=== PATIENT | female | born 1945 | race Caucasian/White ===

== ENCOUNTER → 2018-04-05 10:36 | Outpatient (CLI) | payer OTHER, SELFPAY ==
--- NOTE | 2018-04-05 10:38 | DI.RAD.S_ITS ---
PROCEDURE: XR CHEST 2V INDICATIONS: cough TECHNIQUE: 2 views of the chest were acquired. COMPARISON: [facility], , CHEST 2 VIEW, 11/23/2017, 10:29. FINDINGS: Surgical changes and devices: None. Lungs and pleura: There is a questionable circumscribed nodule posterior to the right cardiac shadow versus overlapping soft tissue artifact. The lungs are otherwise clear. No pleural effusion or pneumothorax. Mediastinum: Mediastinal contours are normal. Heart size is normal. Bones and chest wall: No suspicious bony abnormalities. Soft tissues appear unremarkable. IMPRESSION: Questionable pulmonary nodule versus artifact as described above. Short interval followup recommended to ensure resolution of this finding. Dictated by: Nedra Laurent M.D. on 04/05/2018 at 10:48 Approved by: Nedra Laurent M.D. on 04/05/2018 at 10:49
== END ==
PROVIDERS: Family Provider Physician Assistant; PCP Physician Assistant; Visit Provider Physician Assistant
DX: R05 Cough (principal); J44.9 Chronic obstructive pulmonary disease, unspecified
CPT/HCPCS: 71046

== ENCOUNTER → 2018-04-14 15:56 | Outpatient (CLI) | payer OTHER, SELFPAY ==
--- NOTE | 2018-04-14 16:00 | DI.RAD.S_ITS ---
PROCEDURE: XR CHEST 2V INDICATIONS: follow up Xray TECHNIQUE: 2 views of the chest were acquired. COMPARISON: [facility], , XR CHEST 2V, 04/05/2018, 10:37. FINDINGS: Surgical changes and devices: None. Lungs and pleura: No pleural effusions or pneumothorax. Lungs are clear. With attention to the right costovertebral angle, the nodular density on last exam is not visualized. Mediastinum: Mediastinal contours are normal. Heart size is normal. Bones and chest wall: No suspicious bony abnormalities. Thoracic spondylosis. Anterior wedging midthoracic spine with kyphosis. There are calcifications overlying the right humeral head. IMPRESSION: 1. No acute cardiopulmonary abnormality. No pulmonary nodules seen. 2. Degenerative thoracic spine disease with kyphosis. 3. Calcific tendinopathy right shoulder. Dictated by: Jc Barton M.D. on 04/14/2018 at 16:19 Approved by: Jc Barton M.D. on 04/14/2018 at 16:23
== END ==
PROVIDERS: Family Provider Physician Assistant; PCP Physician Assistant; Visit Provider Physician Assistant
DX: M47.814 Spondylosis without myelopathy or radiculopathy, thoracic region (principal); M40.204 Unspecified kyphosis, thoracic region; R93.8 Abnormal findings on diagnostic imaging of other specified body structures; M75.31 Calcific tendinitis of right shoulder
CPT/HCPCS: 71046

== ENCOUNTER → 2018-06-30 17:07 | Outpatient (CLI) | payer OTHER, SELFPAY ==
--- NOTE | 2018-06-30 | DI.RAD.S_ITS ---
PROCEDURE: XR CHEST 2V INDICATIONS: ACUTE BRONCHITIS WITH ASTHMA TECHNIQUE: 2 views of the chest were acquired. COMPARISON: [facility], CR, XR CHEST 2V, 04/05/2018, 10:37. [facility], CR, CHEST 2 VIEW, 11/23/2017, 10:29. [facility], CR, XR CHEST 2V, 04/14/2018, 15:41. FINDINGS: Surgical changes and devices: None. Lungs and pleura: Chronic interstitial prominence. No pleural effusions or pneumothorax. Lungs are clear. Mediastinum: Mediastinal contours are normal. Heart size is normal. Bones and chest wall: No suspicious bony abnormalities. Soft tissues appear unremarkable. Degenerative changes noted in thoracic lumbar spine. IMPRESSION: No acute cardiopulmonary disease. Dictated by: Beata Zapien M.D. on 07/01/2018 at 11:27 Approved by: Beata Zapien M.D. on 07/01/2018 at 11:28
== END ==
PROVIDERS: Family Provider Physician Assistant; PCP Physician Assistant; Visit Provider Physician Assistant
DX: J20.9 Acute bronchitis, unspecified (principal); J45.909 Unspecified asthma, uncomplicated
CPT/HCPCS: 71046

== ENCOUNTER → 2018-08-06 08:02 | Outpatient (CLI) | payer OTHER, SELFPAY ==
[2018-08-06 08:34] LABS: Alanine Aminotransferase 31 IU/L (9-52); Albumin 4.3 g/dL (3.5-5.0); Albumin Globulin Ratio 1.5 (1.0-2.8); Alkaline Phosphatase 72 U/L (38-126); Aspartate Aminotransferase 26 IU/L (14-36); BUN Creatinine Ratio 34.3 (6-22); Blood Urea Nitrogen 24 mg/dL (7-17); Calcium 9.3 mg/dL (8.4-10.2); Carbon Dioxide 35 mmol/L (22-32); Chloride 103 mmol/L (98-107); Cholesterol 183 mg/dL (140-199); Estimated Glomerular Filt Rate > 60.0 mL/min (>60); Globulin 2.9 g/dL (1.7-4.1); Glucose 95 mg/dL (80-110); HDL Cholesterol 55 mg/dL (40-60); HEMOLYSIS < 15 (0-50); LDL Cholesterol Calculated 114 mg/dL (<100); Potassium 4.1 mmol/L (3.4-5.1); Sodium 144 mmol/L (137-145); Total Protein 7.2 g/dL (6.3-8.2); Triglycerides 71 mg/dL (35-150)
== END ==
PROVIDERS: PCP Physician Assistant; Visit Provider Physician Assistant
DX: E78.5 Hyperlipidemia, unspecified (principal); J44.9 Chronic obstructive pulmonary disease, unspecified
CPT/HCPCS: 36415; 80053; 80061

== ENCOUNTER → 2018-10-04 10:33 | Outpatient (CLI) | payer OTHER, SELFPAY ==
[2018-10-04 11:03] LABS: Influenza A and B by PCR Rapid Negative (Negative)
== END ==
PROVIDERS: Family Provider Physician Assistant; PCP Physician Assistant; Visit Provider Physician Assistant
DX: R68.89 Other general symptoms and signs (principal)
CPT/HCPCS: 87400

== ENCOUNTER → 2018-10-04 11:21 | Outpatient (CLI) | payer OTHER, SELFPAY ==
--- NOTE | 2018-10-04 11:22 | DI.RAD.S_ITS ---
PROCEDURE: XR CHEST 2V INDICATIONS: bilateral crackles/wheeze TECHNIQUE: 2 views of the chest were acquired. COMPARISON: [facility], CR, XR CHEST 2V, 06/30/2018, 18:02. FINDINGS: Surgical changes and devices: None. Lungs and pleura: Slight appearance of streaky retrocardiac/by basilar opacities. There is overall. Other increased pulmonary vascularity. Mediastinum: Mediastinal contours are normal. Heart size is normal. Bones and chest wall: No suspicious bony abnormalities. Soft tissues appear unremarkable. IMPRESSION: Increased vascular sutures with edema. Streaky opacities are present within the bases as well as retrocardiac region. Findings are suggestive of edema. However, developing areas of airspace disease such as atelectasis and/or pneumonia cannot be excluded. This could represent developing airspace disease such as pneumonia and/or atelectasis. Dictated by: Hanh Prajapati M.D. on 10/04/2018 at 11:59 Approved by: Hanh Prajapati M.D. on 10/04/2018 at 12:00
== END ==
PROVIDERS: Family Provider Physician Assistant; PCP Physician Assistant; Visit Provider Physician Assistant
DX: R05 Cough (principal); R06.2 Wheezing
CPT/HCPCS: 71046; 87400

== ENCOUNTER → 2019-04-14 10:45 | Outpatient (CLI) | payer OTHER, SELFPAY | PROVIDERS: Family Provider Physician Assistant; PCP Physician Assistant; Visit Provider Physician Assistant | DX: R30.0 Dysuria (principal) | CPT/HCPCS: 87077; 87086; 87186 ==

== ENCOUNTER → 2019-05-21 07:50 | Outpatient (CLI) | payer OTHER, SELFPAY ==
[2019-05-21 09:33] LABS: Blood Urea Nitrogen 28 mg/dL (7-17); Calcium 9.5 mg/dL (8.4-10.2); Carbon Dioxide 30 mmol/L (22-32); Chloride 104 mmol/L (98-107); Estimated Glomerular Filt Rate > 60.0 mL/min (>60); Glucose 92 mg/dL (80-110); HEMOLYSIS 16 (0-50); Potassium 4.3 mmol/L (3.4-5.1); Sodium 141 mmol/L (137-145)
[2019-05-21 10:01] LABS: Creatinine Urine Random 101.9 mg/dL
[2019-05-21 10:05] LABS: Microalbumi Creatinin Ratio Ur 27.4 ug/mg CR (<30); Microalbumin Urine Random 2.8 mg/dL (0-1.6)
== END ==
PROVIDERS: PCP Physician Assistant; Visit Provider Physician Assistant
DX: E78.5 Hyperlipidemia, unspecified (principal); I10 Essential (primary) hypertension; J44.9 Chronic obstructive pulmonary disease, unspecified
CPT/HCPCS: 36415; 80048; 82043; 82570

== ENCOUNTER → 2020-05-21 15:32 | Outpatient (CLI) | payer OTHER, SELFPAY ==
[2020-05-23 04:12] LABS: COVID19 Sendout Not Detected (Not Detected)
== END ==
PROVIDERS: PCP Physician Assistant; Visit Provider Physician Assistant
DX: Z11.59 Encounter for screening for other viral diseases (principal); R06.02 Shortness of breath
CPT/HCPCS: 87635

== ENCOUNTER → 2020-09-25 07:34 | Outpatient (CLI) | payer OTHER, SELFPAY ==
[2020-09-25 08:20] LABS: Hematocrit 44.9 % (36-46); Hemoglobin 14.5 g/dL (12.0-16.0); Mean Corpuscular HGB Conc 32.4 % (30-36); Mean Corpuscular Hemoglobin 31.3 PG (26-34); Mean Corpuscular Volume 96.5 fL (80-100); Platelet Count 220 X10^3/uL (150-400); Red Blood Cell Count 4.65 X10^6/uL (4.0-5.2); Red Cell Distribution Width 14.5 % (11.6-14.8); White Blood Cell Count 5.4 X10^3/uL (4.5-11.0)
[2020-09-25 08:21] LABS: Alanine Aminotransferase 22 IU/L (<35); Albumin 3.9 g/dL (3.5-5.0); Albumin Globulin Ratio 1.3 (1.0-2.8); Alkaline Phosphatase 72 U/L (38-126); Aspartate Aminotransferase 29 IU/L (14-36); BUN Creatinine Ratio 38.8 (6-22); Bilirubin Total 0.9 mg/dL (0.2-1.3); Blood Urea Nitrogen 26 mg/dL (7-17); Calcium 9.2 mg/dL (8.4-10.2); Carbon Dioxide 35 mmol/L (22-32); Chloride 104 mmol/L (98-107); Cholesterol 180 mg/dL (140-199); Estimated Glomerular Filt Rate > 60.0 mL/min (>60); Glucose 107 mg/dL (80-110); HDL Cholesterol 53 mg/dL (40-60); HEMOLYSIS < 15 (0-50); LDL Cholesterol Calculated 113 mg/dL (<100); Potassium 4.4 mmol/L (3.4-5.1); Sodium 140 mmol/L (137-145); Total Protein 6.9 g/dL (6.3-8.2); Triglycerides 70 mg/dL (35-150)
== END ==
PROVIDERS: PCP Nurse Practitioner Family; Referring Provider Nurse Practitioner Family; Visit Provider Nurse Practitioner Family
DX: Z00.00 Encounter for general adult medical examination without abnormal findings (principal); J41.8 Mixed simple and mucopurulent chronic bronchitis; Z13.6 Encounter for screening for cardiovascular disorders
CPT/HCPCS: 36415; 80053; 80061; 85027

== ENCOUNTER 2020-10-16 10:25 | Emergency (ER) | payer OTHER, SELFPAY ==
[2020-10-16] VITALS (12 sets, daily range): BP systolic 143–172; BP diastolic 80–96; PULSE 60–84; RESP 15–35; TEMP 36.8; O2SAT 91–96; BMI 40.2
--- NOTE | 2020-10-16 10:42 | DI.RAD.S_ITS ---
PROCEDURE: XR CHEST 2V INDICATIONS: shortness of breath TECHNIQUE: 2 views of the chest were acquired. COMPARISON: [facility], CR, XR CHEST 2V, 10/04/2018, 11:27. [facility], CR, XR CHEST 2V, 06/30/2018, 18:02. FINDINGS: Surgical changes and devices: None. Lungs and pleura: Lungs are abnormal, with asymmetric right greater than left alveolar infiltration in the setting of reduced inspiratory volume and asymmetric mild elevation of the right hemidiaphragm. No pleural effusions or pneumothorax. Mediastinum: Mediastinal contours are normal. Heart size is normal. Bones and chest wall: No suspicious bony abnormalities. Soft tissues appear unremarkable. IMPRESSION: The inspiratory volume is significantly reduced, and the right hemidiaphragm is mildly elevated. There is a alveolar infiltration pattern that is greater on the right than the left but this may simply represent atelectasis in the setting of reduced inspiration. Follow-up PA and lateral chest plain films with deep inspiratory effort would be helpful in determining whether right-sided pneumonia is superimposed. Dictated by: Steven Edwards M.D. on 10/16/2020 at 11:21 Approved by: Steven Edwards M.D. on 10/16/2020 at 11:22
[2020-10-16 12:20] LABS: Add Manual Diff / Slide Review NO; Basophils Absolute Auto 100 /uL (0-100); Basophils Percent Auto 0.9 % (0-2); Eosinophils Absolute Auto 300 /uL (0-450); Eosinophils Percent Auto 4.4 % (2-4); Hematocrit 46.4 % (36-46); Hemoglobin 15.3 g/dL (12.0-16.0); Lymphocytes Absolute Auto 1200 /uL (1100-4500); Lymphocytes Percent Auto 20.2 % (25-40); Mean Corpuscular HGB Conc 32.9 % (30-36); Mean Corpuscular Hemoglobin 31.6 PG (26-34); Mean Corpuscular Volume 95.9 fL (80-100); Monocytes Absolute Auto 600 /uL (0-900); Monocytes Percent Auto 9.4 % (3-14); Neutrophils Absolute Auto 3900 /uL (1500-7000); Neutrophils Percent Auto 65.1 % (50-75); Platelet Count 235 X10^3/uL (150-400); Red Blood Cell Count 4.84 X10^6/uL (4.0-5.2); Red Cell Distribution Width 14.8 % (11.6-14.8)
[2020-10-16 12:21] LABS: COVID19 -Nasal RAPID Negative (Negative)
[2020-10-16 12:25] LABS: Lactate (Lactic Acid) 0.8 mmol/L (0.7-2.1)
[2020-10-16 12:26] LABS: Alanine Aminotransferase 24 IU/L (<35); Albumin 4.2 g/dL (3.5-5.0); Albumin Globulin Ratio 1.2 (1.0-2.8); Alkaline Phosphatase 83 U/L (38-126); Aspartate Aminotransferase 29 IU/L (14-36); BUN Creatinine Ratio 36.9 (6-22); Bilirubin Total 0.7 mg/dL (0.2-1.3); Blood Urea Nitrogen 24 mg/dL (7-17); Calcium 9.8 mg/dL (8.4-10.2); Carbon Dioxide 37 mmol/L (22-32); Chloride 103 mmol/L (98-107); Estimated Glomerular Filt Rate > 60.0 mL/min (>60); Globulin 3.5 g/dL (1.7-4.1); Glucose 96 mg/dL (80-110); HEMOLYSIS < 15 (0-50); Potassium 3.8 mmol/L (3.4-5.1); Sodium 138 mmol/L (137-145); Total Protein 7.7 g/dL (6.3-8.2)
--- NOTE | 2020-10-16 12:30 | ED.SOB ---
HPI - SOB/Dyspnea <BLAKE Obrien - Last Filed: 10/16/20 14:00> General Chief Complaint: Shortness of Breath/Dyspnea Stated Complaint: DRY COUGH, WHEEZING Time Seen by Provider: 10/16/20 11:09 Source: patient Mode of arrival: Ambulatory Limitations: no limitations History of Present Illness HPI Narrative: This is a 75-year-old female, smoker, who has past medical history significant for COPD, asthma, allergies presents to ED with chief complain of trouble breathing. Patient reports 3 day duration of nonproductive dry cough and wheezing worsened with activities. Patient denies fever, chills, nausea or vomiting. Patient reports she had star using nebulizer treatment 2 days ago for her symptoms and had cough spells. Reports pleuritic chest discomfort only with cough. Patient denies recent weight gain or swellings to lower extremities. Patient denies history of hospitalization or intubation with COPD or asthma. Patient reports steroid use not frequently for her symptoms. Patient contacted KAILEE Acosta's office and was instructed to go into ED for an evaluation. Patient denies recent known COVID exposure and denies headache, sore throat, body aches, loss of taste or smells. Related Data Home Medications Medication Instructions Recorded Confirmed CA PANTOTHENATE/FOLIC ACID/VIT 1 tab PO QDAY #0 09/10/12 09/19/20 (MULTIVITAMIN) fexofenadine 180 mg PO QDAY #0 11/26/17 09/19/20 Calcium/Vitamin D3 See Rx Instructions .ROUTE .COMPLEX 08/09/18 09/19/20 acetaminophen 650 mg 1,300 mg PO DAILY tab 09/19/20 09/19/20 tablet,extended release Previous Rx's Medication Instructions Recorded ipratropium 0.5 mg-albuterol 3 mg 3 ml INHALATION Q6HP PRN #90 ea 02/25/18 (2.5 mg base)/3 mL nebulization soln albuterol sulfate 90 mcg/actuation 2 puff INHALATION Q4HP PRN #1 inh 07/19/20 aerosol inhaler fluticasone 55 mcg-salmeterol 14 1 inhalation INHALATION BID #1 each 07/19/20 mcg/actuation breath activated powder montelukast 10 mg tablet 10 mg PO QPM #90 tab 07/19/20 meclizine 12.5 mg tablet 12.5 mg PO TID PRN #14 tab 08/01/20 alendronate 70 mg tablet 70 mg PO QWEEK #12 tab 09/19/20 hydrochlorothiazide 25 mg tablet 25 mg PO QDAY #90 tab 09/19/20 ofloxacin 0.3 % eye drops 2 drp EYE-BOTH QID 5 Days #10 ml 09/19/20 doxycycline hyclate 100 mg PO BID 7 Days #14 cap 10/16/20 prednisone 50 mg PO DAILY 5 Days #5 tab 10/16/20 Allergies Allergy/AdvReac Type Severity Reaction Status Date / Time No Known Drug Allergies Allergy Verified 10/16/20 10:37 Review of Systems <BLAKE Obrien - Last Filed: 10/16/20 14:00> Review of Systems Narrative: General: Denies fever, chills, fatigue, malaise, sweats. HEENT: Denies sinus pain, ear pain, sore throat, difficulty swallowing, dizziness. Respiratory: See HPI Cardiovascular: Denies (+) pleuric chest pain with cough, palpitations, orthopnea, edema. Gastrointestinal: Denies nausea, vomiting, abdominal pain, diarrhea, constipation, melena. : Denies dysuria, frequency, incontinence, hematuria, urinary retention. Musculoskeletal: Denies weakness, joint pain or bony pain. Skin: Denies rash, skin lesions, or other. Neurologic: Denies weakness, headache, numbness, change in speech, confusion, seizures, incoordination. Psychiatric: No concerning psychosocial issues. 12-point review of systems is negative except for those stated above. Patient History <BLAKE Obrien - Last Filed: 10/16/20 14:00> Medical History Asthma Chronic obstructive pulmonary disease (12/23/12) Hyperlipidemia Osteoarthritis Osteopenia after menopause Polyp of colon (04/02/11) Psoriasis Smoker unmotivated to quit Surgical History History of colonoscopy with polypectomy (05/04/09) History of ventral hernia repair (08/10/07) Social History Smoking Status: Current every day smoker Tobacco: How many years used: 58 quit status: considering quitting second hand exposure: No alcohol intake: never substance use type: does not use Smoking Status: Current every day smoker Exam <Venkata BLAKE Monique - Last Filed: 10/16/20 14:00> Narrative Exam Narrative: GEN: Alert, oriented x 3, well appearing and nourished, and in no acute distress. Head: Normal cephalic, atraumatic. No scalp or temporal tenderness, palpable mass or rash. EYES: Pupils are equal, round, and reactive to light and accommodation. Extraocular muscles are intact bilaterally. There is no subconjunctival hemorrhage, exudate and sclera non-icteric. ENT: Hearing grossly intact. Nose without bleeding, purulent discharge or deviation. Facial sinuses nontender to palpate. Mucous membrane moist, no mucosal lesion. Throat without erythema, tonsillar hypertrophy or exudate. Uvula in midline, airway patent. Neck: Trachea in midline. No JVD, non-tender without lymphadenopathy. No masses or thyroid megaly. Supple, non-tender and no meningeal signs. CARDIAC: Normal regular rate and rhythm without murmurs, gallops, or rubs. No chest wall tenderness. No peripheral edema, cyanosis or pallor. Capillary refill is less than 2 seconds. RESPIRATORY: Lungs are clear to auscultate bilaterally. No cough, wheezes, rales, or rhonchi. No stridor, respiratory distress, increase work of breathing, or accessary muscle used. O2 sat 92-94% in RA. ABD: Abdomen soft, nontender and non-distended. No guarding or rebound tenderness to palpate. Bowel sounds are normal in all 4 quadrants. There is no palpable masses or organomegaly. EXT: Full painless ROM of all extremities with no loss of sensation, strength, effusion or edema. SKIN: Warm, dry, normal color for patient. No erythema, lesions or rash over visible areas. BACK: Nontender without deformity or crepitance. No flank tenderness. NEUROLOGICAL: Alert and oriented to place, time and person. Sensation and motor function intact bilaterally. No facial droops, dysphasia. PSYCHIATRIC: Good judgement and reason, without hallucinations, abnormal affect or abnormal behaviors during the examination. Patient is not suicidal. Initial Vital Signs Initial Vital Signs: Vital Signs Temperature 98.3 F 12/29/20 10:37 Pulse Rate 60 10/16/20 10:37 Respiratory Rate 24 10/16/20 10:37 Blood Pressure 161/80 H 10/16/20 10:37 Pulse Oximetry 95 10/16/20 10:37 <Desiree Angulo DO - Last Filed: 10/16/20 18:52> Initial Vital Signs Initial Vital Signs: Vital Signs Temperature 98.3 F 10/16/20 10:37 Pulse Rate 60 10/16/20 10:37 Respiratory Rate 24 10/16/20 10:37 Blood Pressure 161/80 H 10/16/20 10:37 Pulse Oximetry 95 10/16/20 10:37 Scores <BLAKE Obrien - Last Filed: 10/16/20 14:00> GCS Kari coma scale eye opening: Spontaneous Kari coma scale verbal response: Orientated [place] coma scale motor response: Obey commands Kari coma scale total score: 15 qSOFA Altered Mental Status (GCS <15): No Respiratory rate greater than/equal to 22: Yes Systolic blood pressure less than or equal to 100: No qSOFA Total: 1 0-1 Not High Risk 1-3 High risk Course <BLAKE Obrien - Last Filed: 10/16/20 14:00> Orders Ordered: ED Orders 10/16/20 10:42 XR chest 2V Stat RT Consult Eval and Treat Now 10/16/20 11:19 EKG-12 Lead Stat 10/16/20 11:53 COVID19 Stat 10/16/20 12:00 Complete Blood Count AUTO DIFF Stat Comprehensive Metabolic Panel Stat Lactate (Lactic Acid) Stat Procalcitonin Stat Discontinued Medications Albuterol (Albuterol 2.5 Mg/3 Ml Neb (Adult)) 2.5 mg INH NOW ONE Stop: 10/16/20 12:29 Last Admin: 10/16/20 12:47 Dose: 2.5 mg Documented by: TITO Methylprednisolone (Methylprednisolone 125 Mg/2 Ml Vial) 125 mg IV NOW ONE Stop: 10/16/20 12:25 Last Admin: 10/16/20 12:58 Dose: 125 mg Documented by: BENIGNO Reevaluation(s) Reevaluation #1: Patient reports dyspnea improved after nebulizer treatment and Solu-Medrol. O2 sat improved to 95% in room air at rest. No increased respiratory efforts without tachypnea. Assuring lab test findings and physical exam with improved O2 saturation shared with the patient. Patient is afebrile and nontoxic appearing. Time: 13:22 Vital Signs Vital signs: Vital Signs - 8 hr 10/16/20 11:00 10/16/20 11:30 10/16/20 11:31 Pulse Rate 76 75 77 Respiratory Rate 27 H 32 H Blood Pressure 172/96 H 146/95 H Pulse Oximetry 93 93 93 10/16/20 11:39 10/16/20 12:00 10/16/20 12:31 Pulse Rate 71 66 67 Respiratory Rate 35 H 15 Blood Pressure 143/92 H Pulse Oximetry 94 94 91 10/16/20 12:52 10/16/20 13:00 10/16/20 13:01 Pulse Rate 84 75 66 Respiratory Rate 16 28 H 28 H Blood Pressure 150/81 H Pulse Oximetry 96 93 94 10/16/20 13:26 10/16/20 13:30 Pulse Rate 83 77 Respiratory Rate 24 Blood Pressure Pulse Oximetry 95 94 <Desiree Angulo, DO - Last Filed: 10/16/20 18:52> Orders Ordered: ED Orders 10/16/20 10:42 XR chest 2V Stat RT Consult Eval and Treat Now 10/16/20 11:19 EKG-12 Lead Stat 10/16/20 11:53 COVID19 Stat 10/16/20 12:00 Complete Blood Count AUTO DIFF Stat Comprehensive Metabolic Panel Stat Lactate (Lactic Acid) Stat Procalcitonin Stat Discontinued Medications Albuterol (Albuterol 2.5 Mg/3 Ml Neb (Adult)) 2.5 mg INH NOW ONE Stop: 10/16/20 12:29 Last Admin: 10/16/20 12:47 Dose: 2.5 mg Documented by: TITO Methylprednisolone (Methylprednisolone 125 Mg/2 Ml Vial) 125 mg IV NOW ONE Stop: 10/16/20 12:25 Last Admin: 10/16/20 12:58 Dose: 125 mg Documented by: BENIGNO Vital Signs Vital signs: Vital Signs - 8 hr 10/16/20 11:00 10/16/20 11:30 10/16/20 11:31 Pulse Rate 76 75 77 Respiratory Rate 27 H 32 H Blood Pressure 172/96 H 146/95 H Pulse Oximetry 93 93 93 10/16/20 11:39 10/16/20 12:00 10/16/20 12:31 Pulse Rate 71 66 67 Respiratory Rate 35 H 15 Blood Pressure 143/92 H Pulse Oximetry 94 94 91 10/16/20 12:52 10/16/20 13:00 10/16/20 13:01 Pulse Rate 84 75 66 Respiratory Rate 16 28 H 28 H Blood Pressure 150/81 H Pulse Oximetry 96 93 94 10/16/20 13:26 10/16/20 13:30 Pulse Rate 83 77 Respiratory Rate 24 Blood Pressure Pulse Oximetry 95 94 MDM - SOB/Dyspnea <Venkata Minda-RiaBLAKE - Last Filed: 10/16/20 14:00> Differential Diagnosis Differential diagnosis: Likely acute exacerbation of chronic obstructive airways disease, community acquired pneumonia and asthma with exacerbation Medical Records Attestation: I reviewed the patient's medical records. Lab Data Attestation: I reviewed the patient's lab results. Result diagrams: 10/16/20 12:00 10/16/20 12:00 Labs: Lab Results 10/16/20 10/16/20 10/16/20 Range/Units 11:53 12:00 12:00 WBC 6.0 (4.5-11.0) X10^3/uL RBC 4.84 (4.0-5.2) X10^6/uL Hgb 15.3 (12.0-16.0) g/dL Hct 46.4 H (36-46) % MCV 95.9 (80-100) fL MCH 31.6 (26-34) PG MCHC 32.9 (30-36) % RDW 14.8 (11.6-14.8) % Plt Count 235 (150-400) X10^3/uL Neut % (Auto) 65.1 (50-75) % Lymph % (Auto) 20.2 L (25-40) % Coffee % (Auto) 9.4 (3-14) % Eos % (Auto) 4.4 H (2-4) % Baso % (Auto) 0.9 (0-2) % Neut # (Auto) 3900 (8062-0537) /uL Lymph # (Auto) 1200 (8662-0528) /uL Coffee # (Auto) 600 (0-900) /uL Eos # (Auto) 300 (0-450) /uL Baso # (Auto) 100 (0-100) /uL Sodium 138 (137-145) mmol/L Potassium 3.8 (3.4-5.1) mmol/L Chloride 103 (98-107) mmol/L Carbon Dioxide 37 H (22-32) mmol/L BUN 24 H (7-17) mg/dL Creatinine 0.65 (0.52-1.04) mg/dL Estimated GFR > 60.0 (>60) mL/min BUN/Creatinine Ratio 36.9 H (6-22) Glucose 96 (80-110) mg/dL Lactate (0.7-2.1) mmol/L Calcium 9.8 (8.4-10.2) mg/dL Total Bilirubin 0.7 (0.2-1.3) mg/dL AST 29 (14-36) IU/L ALT 24 (<35) IU/L Alkaline Phosphatase 83 (38-126) U/L Total Protein 7.7 (6.3-8.2) g/dL Albumin 4.2 (3.5-5.0) g/dL Globulin 3.5 (1.7-4.1) g/dL Albumin/Globulin Ratio 1.2 (1.0-2.8) Procalcitonin (<0.5) ng/mL COVID-19 PCR Negative (Negative) 10/16/20 10/16/20 Range/Units 12:00 12:00 WBC (4.5-11.0) X10^3/uL RBC (4.0-5.2) X10^6/uL Hgb (12.0-16.0) g/dL Hct (36-46) % MCV (80-100) fL MCH (26-34) PG MCHC (30-36) % RDW (11.6-14.8) % Plt Count (150-400) X10^3/uL Neut % (Auto) (50-75) % Lymph % (Auto) (25-40) % Coffee % (Auto) (3-14) % Eos % (Auto) (2-4) % Baso % (Auto) (0-2) % Neut # (Auto) (0588-5915) /uL Lymph # (Auto) (0998-3262) /uL Coffee # (Auto) (0-900) /uL Eos # (Auto) (0-450) /uL Baso # (Auto) (0-100) /uL Sodium (137-145) mmol/L Potassium (3.4-5.1) mmol/L Chloride (98-107) mmol/L Carbon Dioxide (22-32) mmol/L BUN (7-17) mg/dL Creatinine (0.52-1.04) mg/dL Estimated GFR (>60) mL/min BUN/Creatinine Ratio (6-22) Glucose (80-110) mg/dL Lactate 0.8 (0.7-2.1) mmol/L Calcium (8.4-10.2) mg/dL Total Bilirubin (0.2-1.3) mg/dL AST (14-36) IU/L ALT (<35) IU/L Alkaline Phosphatase (38-126) U/L Total Protein (6.3-8.2) g/dL Albumin (3.5-5.0) g/dL Globulin (1.7-4.1) g/dL Albumin/Globulin Ratio (1.0-2.8) Procalcitonin < 0.05 (<0.5) ng/mL COVID-19 PCR (Negative) Urine Dip Bedside Urine Glucose Negative Bedside Urine Bilirubin - Negative Bedside Urine Ketone - Negative Urine Specific [place] 1.015 Bedside Urine Occult Blood +/- Bedside Urine pH 6.5 Bedside Urine Protein - Negative Bedside Urine Urobilinogen - Negative Bedside Urine Nitrite - Negative Bedside Urine Leukocytes - Negative Esterase Imaging Data Chest x-ray: Radiologist's Impression: [address] [id number] ReportSigned Patient: Mei Singh [facility]#: [id number]: 1945cct:[id number]/Sex: 75 / FDate of Service: 10/16/20Loc: EDAccession Number: [id number] Procedure: XR chest 2V Ordering Provider: Desiree Angulo D.O. PROCEDURE: XR CHEST 2V INDICATIONS: shortness of breath TECHNIQUE: 2 views of the chest were acquired. COMPARISON: [facility], CR, XR CHEST 2V, 10/04/2018, 11:27. [facility], CR, XR CHEST 2V, 06/30/2018, 18:02. FINDINGS: Surgical changes and devices: None. Lungs and pleura: Lungs are abnormal, with asymmetric right greater than left alveolar infiltration in the setting of reduced inspiratory volume and asymmetric mild elevation of the right hemidiaphragm. No pleural effusions or pneumothorax. Mediastinum: Mediastinal contours are normal. Heart size is normal. Bones and chest wall: No suspicious bony abnormalities. Soft tissues appear unremarkable. IMPRESSION: The inspiratory volume is significantly reduced, and the right hemidiaphragm is mildly elevated. There is a alveolar infiltration pattern that is greater on the right than the left but this may simply represent atelectasis in the setting of reduced inspiration. Follow-up PA and lateral chest plain films with deep inspiratory effort would be helpful in determining whether right-sided pneumonia is superimposed. Dictated by: Steven Edwards M.D. on 10/16/2020 at 11:21 Approved by: Steven Edwards M.D. on 10/16/2020 at 11:22 ECG Data Attestation: I personally reviewed and interpreted this ECG as follows: Prior ECG tracings: not available for review Interpretation: Sinus rhythm with first-degree AV block rate at 62 and incomplete right bundle branch block MO interval to 15, QRS duration 118, QT/QTC 397/403 Left dominant axis. No acute ST changes MDM Narrative Medical decision making narrative: This is a 75 year female who presents to ED with dyspnea and nonproductive cough who has history of COPD, asthma, and allergies. Patient started using nebulizer 1st time 2 days ago and uses inhaler routinely. Patient reports some chest correct discomfort only with cough and denies other cardiac related symptoms. Lung sounds are clear to auscultate. O2 said range from 92-94% in room air at rest. COVID test was negative. Chest x-ray shows questionable alveolar infiltration pattern on the right-side verses atelectasis. Labs are assuring. No leukocytosis with normal lactate and procalcitonin. Elevated CO2 of 37 and possibly patient is slightly dehydrated with BUN of 24 and increased BUN/creatinine ratio. Given patient's history of COPD and asthma, will treat patient for pneumonia with doxycycline b.i.d. course for 7 days. In addition, patient will be on 5 day course of steroids. Patient was treated with Solu-Medrol 1st dose in ED and nebulizer treatment with albuterol which improved symptoms. Patient was able to ambulate without short of breath and keeping O2 said at 95% in room air. Strict return precautions were discussed with patient and she verbalized understanding and in agreement with the treatment plan. Advised to hydrate. <Desiree Angulo, - Last Filed: 10/16/20 18:52> Lab Data Labs: Lab Results 10/16/20 10/16/20 10/16/20 Range/Units 11:53 12:00 12:00 WBC 6.0 (4.5-11.0) X10^3/uL RBC 4.84 (4.0-5.2) X10^6/uL Hgb 15.3 (12.0-16.0) g/dL Hct 46.4 H (36-46) % MCV 95.9 (80-100) fL MCH 31.6 (26-34) PG MCHC 32.9 (30-36) % RDW 14.8 (11.6-14.8) % Plt Count 235 (150-400) X10^3/uL Neut % (Auto) 65.1 (50-75) % Lymph % (Auto) 20.2 L (25-40) % Coffee % (Auto) 9.4 (3-14) % Eos % (Auto) 4.4 H (2-4) % Baso % (Auto) 0.9 (0-2) % Neut # (Auto) 3900 (8220-6885) /uL Lymph # (Auto) 1200 (9961-6977) /uL Coffee # (Auto) 600 (0-900) /uL Eos # (Auto) 300 (0-450) /uL Baso # (Auto) 100 (0-100) /uL Sodium 138 (137-145) mmol/L Potassium 3.8 (3.4-5.1) mmol/L Chloride 103 (98-107) mmol/L Carbon Dioxide 37 H (22-32) mmol/L BUN 24 H (7-17) mg/dL Creatinine 0.65 (0.52-1.04) mg/dL Estimated GFR > 60.0 (>60) mL/min BUN/Creatinine Ratio 36.9 H (6-22) Glucose 96 (80-110) mg/dL Lactate (0.7-2.1) mmol/L Calcium 9.8 (8.4-10.2) mg/dL Total Bilirubin 0.7 (0.2-1.3) mg/dL AST 29 (14-36) IU/L ALT 24 (<35) IU/L Alkaline Phosphatase 83 (38-126) U/L Total Protein 7.7 (6.3-8.2) g/dL Albumin 4.2 (3.5-5.0) g/dL Globulin 3.5 (1.7-4.1) g/dL Albumin/Globulin Ratio 1.2 (1.0-2.8) Procalcitonin (<0.5) ng/mL COVID-19 PCR Negative (Negative) 10/16/20 10/16/20 Range/Units 12:00 12:00 WBC (4.5-11.0) X10^3/uL RBC (4.0-5.2) X10^6/uL Hgb (12.0-16.0) g/dL Hct (36-46) % MCV (80-100) fL MCH (26-34) PG MCHC (30-36) % RDW (11.6-14.8) % Plt Count (150-400) X10^3/uL Neut % (Auto) (50-75) % Lymph % (Auto) (25-40) % Coffee % (Auto) (3-14) % Eos % (Auto) (2-4) % Baso % (Auto) (0-2) % Neut # (Auto) (2633-6252) /uL Lymph # (Auto) (4382-3766) /uL Coffee # (Auto) (0-900) /uL Eos # (Auto) (0-450) /uL Baso # (Auto) (0-100) /uL Sodium (137-145) mmol/L Potassium (3.4-5.1) mmol/L Chloride (98-107) mmol/L Carbon Dioxide (22-32) mmol/L BUN (7-17) mg/dL Creatinine (0.52-1.04) mg/dL Estimated GFR (>60) mL/min BUN/Creatinine Ratio (6-22) Glucose (80-110) mg/dL Lactate 0.8 (0.7-2.1) mmol/L Calcium (8.4-10.2) mg/dL Total Bilirubin (0.2-1.3) mg/dL AST (14-36) IU/L ALT (<35) IU/L Alkaline Phosphatase (38-126) U/L Total Protein (6.3-8.2) g/dL Albumin (3.5-5.0) g/dL Globulin (1.7-4.1) g/dL Albumin/Globulin Ratio (1.0-2.8) Procalcitonin < 0.05 (<0.5) ng/mL COVID-19 PCR (Negative) Urine Dip Bedside Urine Glucose Negative Bedside Urine Bilirubin - Negative Bedside Urine Ketone - Negative Urine Specific [place] 1.015 Bedside Urine Occult Blood +/- Bedside Urine pH 6.5 Bedside Urine Protein - Negative Bedside Urine Urobilinogen - Negative Bedside Urine Nitrite - Negative Bedside Urine Leukocytes - Negative Esterase Discharge Plan Departure Patient Disposition: Home Clinical Impression: Breath, shortness Pneumonia Qualifiers: Pneumonia type: due to unspecified organism Laterality: right Lung location: unspecified part of lung Qualified Code(s): J18.9 - Pneumonia, unspecified organism Instructions: DI for Chronic Obstructive Pulmonary Disease, DI for Pneumonia -- Adult Activity Restrictions/Additional Instructions: You have been diagnosed with [possible pneumonia and has a history of COPD. X-ray test indicates possible pneumonia. You were treated with nebulizer treatment and Solu-Medrol IV in ED. Covid test was negative]. What to do: *Take your medications as directed. Please take doxycycline starting tonight. Take twice a day for next 7 days. Start prednisone tomorrow for next 5 days. [facility] *Follow up with your primary care provider in 2-3 days, call for an appointment. Let them know you were seen in the ED and that we asked you to be seen in follow up. *Return to ED if you have any new, worsening, or concerning symptoms, such as chest pain, difficulty breathing, fever, unable to tolerate fluids, near syncope or any acute concerns]. Prescriptions: New prednisone 50 mg tablet 50 mg PO DAILY 5 Days Qty: 5 RF: 0 doxycycline hyclate 100 mg capsule 100 mg PO BID 7 Days Qty: 14 RF: 0 No Action ipratropium-albuterol 0.5 mg-3 mg(2.5 mg base)/3 mL solution for nebulization 3 ml INHALATION Q6HP PRN (Reason: shortness of breath) Qty: 90 RF: 3 Calcium/Vitamin D3 See Rx Instructions .ROUTE .COMPLEX RF: 0 meclizine 12.5 mg tablet 12.5 mg PO TID PRN (Reason: vertigo) Qty: 14 RF: 0 CA PANTOTHENATE/FOLIC ACID/VIT (MULTIVITAMIN) 1 tab PO QDAY Qty: 0 RF: 0 fexofenadine 180 MG tablet 180 mg PO QDAY Qty: 0 RF: 0 acetaminophen [Tylenol Arthritis Pain] 650 mg tablet extended release 1,300 mg PO DAILY RF: 0 hydrochlorothiazide 25 mg tablet 25 mg PO QDAY Qty: 90 RF: 2 ofloxacin 0.3 % drops 2 drp EYE-BOTH QID 5 Days Qty: 10 RF: 1 alendronate 70 mg tablet 70 mg PO QWEEK Qty: 12 RF: 3 fluticasone propion-salmeterol 55-14 mcg/actuation aerosol powdr breath activated 1 inhalation INHALATION BID Qty: 1 RF: 2 montelukast 10 mg tablet 10 mg PO QPM Qty: 90 RF: 1 albuterol sulfate [Ventolin HFA] 90 mcg/actuation HFA aerosol inhaler 2 puff inhalation Q4HP PRN (Reason: shortness of breath or wheezing) Qty: 1 RF: 3 Referrals: Rubin Acosta ARNP [Primary Care Provider] - <Desiree Angulo DO - Last Filed: 10/16/20 18:52> Cosign ED Attending Britneyature Attestation: I was immediately available in the department for consultation. Documentation has been reviewed. I agree with assessment and plan.
[2020-10-16] MEDS: ALBUTEROL 2.5 MG/3 ML NEB (ADULT) INH (12:47)
[2020-10-16] MEDS: methylPREDNISolone 125 MG/2 ML VIAL IV (12:58)
[2020-10-16 13:10] LABS: Procalcitonin < 0.05 ng/mL (<0.5)
== END 2020-10-16 13:47 | disposition home or self-care (01) ==
PROVIDERS: Emergency Medicine; Emergency Provider Nurse Practitioner Family; PCP Nurse Practitioner Family
DX: J18.9 Pneumonia, unspecified organism (principal); R06.02 Shortness of breath; R05 Cough; J44.9 Chronic obstructive pulmonary disease, unspecified; J45.909 Unspecified asthma, uncomplicated; E78.5 Hyperlipidemia, unspecified; Z20.828 Contact with and (suspected) exposure to other viral communicable diseases
CPT/HCPCS: 36415; 71046; 80053; 81003; 83605; 84145; 85025; 87635; 93005; 94640; 96374; 99283; 99284; J2930; J7613

== ENCOUNTER → 2020-10-23 08:48 | Outpatient (CLI) | payer OTHER, SELFPAY ==
--- NOTE | 2020-10-23 08:49 | DI.RAD.S_ITS ---
PROCEDURE: XR CHEST 2V INDICATIONS: follow up pneumonia TECHNIQUE: 2 views of the chest were acquired. COMPARISON: [facility], CHEST 2 VIEW, 06/06/2011, 9:19. [facility], CHEST 2 VIEW, 10/23/2016, 12:31. [facility], , XR CHEST 2V, 10/16/2020, 10:45. [facility], , XR CHEST 2V, 10/04/2018, 11:27. FINDINGS: Surgical changes and devices: None. Lungs and pleura: Minimally reduced lung volumes. There is a prominence of the pulmonary vasculature markings bilaterally, not significantly changed. Suspect mild airspace opacity in the right lower lobe, unchanged. No pleural effusions or pneumothorax. Mediastinum: Mediastinal contours are unchanged. Heart size is enlarged. Bones and chest wall: No suspicious bony abnormalities. Soft tissues appear unremarkable. IMPRESSION: Overall no significant interval change. Suspect mild airspace opacity in the right lower lobe which could be due to pneumonia or atelectasis. Also suspect superimposed vasculature engorgement. Dictated by: Oziel Hawthorne M.D. on 10/23/2020 at 8:06 Approved by: Oziel Hawthorne M.D. on 10/23/2020 at 8:10
== END ==
PROVIDERS: PCP Nurse Practitioner Family; Referring Provider Nurse Practitioner Family; Visit Provider Nurse Practitioner Family
DX: J18.9 Pneumonia, unspecified organism (principal)
CPT/HCPCS: 71046

== ENCOUNTER 2020-12-21 08:21 | Emergency (ER) | payer OTHER, SELFPAY ==
--- NOTE | 2020-12-21 08:25 | DI.RAD.S_ITS ---
PROCEDURE: XR CHEST 1V INDICATIONS: Cough for 1 week TECHNIQUE: One view of the chest was acquired. COMPARISON: [facility], CR, XR CHEST 2V, 10/23/2020, 8:51. FINDINGS: Surgical changes and devices: None. Lungs and pleura: Lungs are clear without acute airspace opacities. No pleural effusions or pneumothorax. Mediastinum: Mediastinal contours are unchanged. Heart size is enlarged. Bones and chest wall: No suspicious bony lesions. Overlying soft tissues appear unremarkable. IMPRESSION: 1. No acute cardiopulmonary disease. Dictated by: Dean Sargent M.D. on 12/21/2020 at 8:11 Approved by: Dean Sargent M.D. on 12/21/2020 at 8:12
[2020-12-21 08:38] VITALS: BP 137/64; PULSE 69; RESP 22; TEMP 36.7; O2SAT 94
[2020-12-21 08:44] VITALS: PULSE 79; RESP 22; O2SAT 93
[2020-12-21 09:00] VITALS: BP 120/59; PULSE 74; RESP 20; O2SAT 93
[2020-12-21 09:01] LABS: COVID19 -Nasal RAPID Negative (Negative)
--- NOTE | 2020-12-21 09:20 | ED_ITS ---
HPI - General Adult General Chief complaint: Shortness of Breath/Dyspnea Stated complaint: cough for a week Time Seen by Provider: 12/21/20 08:25 Source: patient Mode of arrival: Family Vehicle Limitations: no limitations History of Present Illness HPI narrative: Patient is a 75-year-old female who has a history of COPD and asthma. No history of congestive heart failure who is here for evaluation of a cough for the past week. She has been using her inhalers at home. She states that it is sometimes a productive cough however not always. Has not had any chest pain. No swelling in her legs. No recent travel. No recent antibiotics. Related Data Home Medications Medication Instructions Recorded Confirmed CA PANTOTHENATE/FOLIC ACID/VIT 1 tab PO QDAY #0 09/10/12 10/18/20 (MULTIVITAMIN) fexofenadine 180 mg PO QDAY #0 11/26/17 10/18/20 Calcium/Vitamin D3 See Rx Instructions .ROUTE .COMPLEX 08/09/18 10/18/20 acetaminophen 650 mg 1,300 mg PO DAILY tab 09/19/20 10/18/20 tablet,extended release Previous Rx's Medication Instructions Recorded ipratropium 0.5 mg-albuterol 3 mg 3 ml INHALATION Q6HP PRN #90 ea 02/25/18 (2.5 mg base)/3 mL nebulization soln albuterol sulfate 90 mcg/actuation 2 puff INHALATION Q4HP PRN #1 inh 07/19/20 aerosol inhaler fluticasone 55 mcg-salmeterol 14 1 inhalation INHALATION BID #1 each 07/19/20 mcg/actuation breath activated powder montelukast 10 mg tablet 10 mg PO QPM #90 tab 07/19/20 meclizine 12.5 mg tablet 12.5 mg PO TID PRN #14 tab 08/01/20 alendronate 70 mg tablet 70 mg PO QWEEK #12 tab 09/19/20 ofloxacin 0.3 % eye drops 2 drp EYE-BOTH QID 5 Days #10 ml 09/19/20 hydrochlorothiazide 25 mg tablet 25 mg PO QDAY #90 tab 11/09/20 prednisone 20 mg PO DAILY 2 Days #2 tab 12/21/20 Allergies Allergy/AdvReac Type Severity Reaction Status Date / Time No Known Drug Allergies Allergy Verified 12/31/20 09:49 Review of Systems Constitutional Constitutional: Denies fatigue, Denies fever(s) and Denies headache(s) ENT Ears, Nose, Mouth, and Throat: Denies headache(s) Cardiovascular Cardiovascular: Denies chest pain and Denies dyspnea Respiratory Respiratory: Reports cough and Denies dyspnea Gastrointestinal Gastrointestinal: Denies abdominal pain, Denies nausea and Denies vomiting Genitourinary Genitourinary: Denies dysuria Genitourinary: Denies dysuria Musculoskeletal Musculoskeletal: Denies arthralgias and Denies myalgias Integumentary/Breasts Skin/Breast: Denies rash Neurologic Neurologic: Denies behavioral changes and Denies headache(s) Psychiatric Psychiatric: Denies behavioral changes Endocrine Endocrine: Denies fatigue Hematologic/Lymphatic On Anticoagulants: No Allergic/Immunologic Allergic/Immunologic: Denies urticaria Patient History Medical History Asthma Chronic obstructive pulmonary disease (12/23/12) Hyperlipidemia Osteoarthritis Osteopenia after menopause Polyp of colon (04/02/11) Psoriasis Smoker unmotivated to quit Surgical History History of colonoscopy with polypectomy (05/04/09) History of ventral hernia repair (08/10/07) Social History Smoking Status: Current every day smoker Tobacco: How many years used: 58 quit status: considering quitting second hand exposure: No alcohol intake: never substance use type: does not use Smoking Status: Current every day smoker tobacco type: cigarettes alcohol intake frequency: 0-2 drinks per day Substance Use Type: does not use Exam Initial Vital Signs Initial Vital Signs: Vital Signs Temperature 98.0 F 12/21/20 08:38 Pulse Rate 69 12/21/20 08:38 Respiratory Rate 22 12/21/20 08:38 Blood Pressure 137/64 12/21/20 08:38 Pulse Oximetry 94 12/21/20 08:38 Const General: cooperative and comfortable Limitations: mental status not altered HENMT Head: normal to inspection and normocephalic Resp Effort & Inspection: normal respiratory effort Auscultation: rhonchi (Bilateral) Cardio Rate: regular rate Rhythm: regular rhythm GI Inspection: non-distended Palpation: soft Skin Lesions: no lesions Rashes: no rashes Neuro General: patient alert and patient awake Cognition: normal cognition Speech: speech normal Extrem General: normal to inspection and capillary refill normal Psych Appearance: grossly normal and well kempt Course Orders Ordered: ED Orders 12/21/20 08:25 XR chest 1V Stat 12/21/20 08:30 COVID19 Stat 12/21/20 08:35 EKG-12 Lead Stat Discontinued Medications Prednisone (Prednisone 20 Mg Tablet) 20 mg PO NOW ONE Stop: 12/21/20 09:37 Last Admin: 12/21/20 09:40 Dose: 20 mg Documented by: AYAN Vital Signs Vital signs: Vital Signs - 8 hr 12/21/20 08:38 12/21/20 08:44 12/21/20 09:00 Temperature 98.0 F Pulse Rate 69 79 74 Respiratory Rate 22 22 20 Blood Pressure 137/64 120/59 L Pulse Oximetry 94 93 93 12/21/20 09:30 Temperature Pulse Rate 62 Respiratory Rate 22 Blood Pressure 125/59 L Pulse Oximetry 93 Medical Decision Making Lab Data Lab results reviewed: Yes I reviewed the patient's lab results. Labs: Lab Results 12/21/20 Range/Units 08:30 SARS-CoV-2 (PCR) Negative (Negative) Imaging Data Chest x-ray: Radiologist's Impression: [address] [id number] ReportSigned Patient: Mei Singh [facility]#: [id number]: 1945cct:[id number]/Sex: 75 / FDate of Service: 12/21/20Loc: EDAccession Number: [id number] Procedure: XR chest 1V Ordering Provider: Vinod Bingham D.O. PROCEDURE: XR CHEST 1V INDICATIONS: Cough for 1 week TECHNIQUE: One view of the chest was acquired. COMPARISON: [facility], , XR CHEST 2V, 10/23/2020, 8:51. FINDINGS: Surgical changes and devices: None. Lungs and pleura: Lungs are clear without acute airspace opacities. No pleural effusions or pneumothorax. Mediastinum: Mediastinal contours are unchanged. Heart size is enlarged. Bones and chest wall: No suspicious bony lesions. Overlying soft tissues appear unremarkable. IMPRESSION: 1. No acute cardiopulmonary disease. Dictated by: Dean Sargent M.D. on 12/21/2020 at 8:11 Approved by: Dean Sargent M.D. on 12/21/2020 at 8:12 ECG Data Attestation: I personally reviewed and interpreted this ECG as follows: Prior ECG tracings: not available for review Interpretation: Sinus rhythm Ventricular rate is 77 First-degree AV block NH interval to 1 6 milliseconds Left axis deviation Artifact noted MDM Narrative Medical decision making narrative: Patient is afebrile. COVID is negative. Her chest x-ray shows no acute pathology. She is not in respiratory distress. Not clinically in heart failure and no diagnosis of heart failure previously. She does have crackles on the left but no wheezing. She is not hypoxic. She does have a history of COPD. She has no oxygen requirement today. Plan we is to put her on steroids for the next 3 days. Feel patient could be discharged home without further workup however she was given strict return precautions. Patient expressed understanding and agreement. Discharge Plan Departure Patient Disposition: Home Clinical Impression: Cough Instructions: DI for Cough -- Adult Activity Restrictions/Additional Instructions: You were given a dose of prednisone here in the emergency department. A prescription for the remaining 2 days was electronically transmitted to your pharmacy. Continue all of your other medications as directed. Return to the emergency department for any new or worsening symptoms Prescriptions: New prednisone 20 mg tablet 20 mg PO DAILY 2 Days Qty: 2 RF: 0 No Action ipratropium-albuterol 0.5 mg-3 mg(2.5 mg base)/3 mL solution for nebulization 3 ml INHALATION Q6HP PRN (Reason: shortness of breath) Qty: 90 RF: 3 Calcium/Vitamin D3 See Rx Instructions .ROUTE .COMPLEX RF: 0 meclizine 12.5 mg tablet 12.5 mg PO TID PRN (Reason: vertigo) Qty: 14 RF: 0 CA PANTOTHENATE/FOLIC ACID/VIT (MULTIVITAMIN) 1 tab PO QDAY Qty: 0 RF: 0 fexofenadine 180 MG tablet 180 mg PO QDAY Qty: 0 RF: 0 hydrochlorothiazide 25 mg tablet 25 mg PO QDAY Qty: 90 RF: 2 acetaminophen [Tylenol Arthritis Pain] 650 mg tablet extended release 1,300 mg PO DAILY RF: 0 ofloxacin 0.3 % drops 2 drp EYE-BOTH QID 5 Days Qty: 10 RF: 1 alendronate 70 mg tablet 70 mg PO QWEEK Qty: 12 RF: 3 fluticasone propion-salmeterol 55-14 mcg/actuation aerosol powdr breath acti vated 1 inhalation INHALATION BID Qty: 1 RF: 2 montelukast 10 mg tablet 10 mg PO QPM Qty: 90 RF: 1 albuterol sulfate [Ventolin HFA] 90 mcg/actuation HFA aerosol inhaler 2 puff inhalation Q4HP PRN (Reason: shortness of breath or wheezing) Qty: 1 RF: 3 Referrals: Rubin Acosta ARNP [Primary Care Provider] -
[2020-12-21 09:30] VITALS: BP 125/59; PULSE 62; RESP 22; O2SAT 93
[2020-12-21] MEDS: predniSONE 20 MG TABLET PO (09:40)
[2020-12-21 09:53] VITALS: BP 143/62; PULSE 60; RESP 16; TEMP 36.4; O2SAT 95
== END 2020-12-21 09:55 | disposition home or self-care (01) ==
PROVIDERS: Emergency Provider Emergency Medicine; PCP Nurse Practitioner Family; Referring Provider Emergency Medicine
DX: R05 Cough (principal); R07.9 Chest pain, unspecified; J44.9 Chronic obstructive pulmonary disease, unspecified; Z20.822 Contact with and (suspected) exposure to COVID-19
CPT/HCPCS: 71045; 87635; 93005; 99283; 99284; C9803

== ENCOUNTER → 2021-01-10 09:16 | Outpatient (CLI) | payer OTHER, SELFPAY ==
[2021-01-10 09:39] LABS: Appearance Urine UA CLOUDY; Bilirubin Urine UA NEGATIVE (NEGATIVE); Color Urine UA YELLOW; Glucose Urine UA NEGATIVE (Negative); Ketones Urine UA NEGATIVE (NEGATIVE); Leukocyte Esterase Urine UA NEGATIVE (NEGATIVE); Nitrite Urine UA NEGATIVE (Negative); Occult Blood Urine UA 3+ (Negative); Protein Urine UA TRACE (Negative); Urobilinogen Urine UA 0.2 E.U./dL (0.2)
[2021-01-10 09:50] LABS: Amorphous Sediment Urine 2+; Bacteria Urine Many (>30); Culture Indicated Urine Cult Not Indicated; RBC Urine >100/HPF (0-5/HPF); Squamous Epithelial Cell Urine 1-5 /HPF (0-5/HPF); WBC Urine 1-5/HPF (0-5/HPF)
== END ==
PROVIDERS: PCP Nurse Practitioner Family; Referring Provider Nurse Practitioner Family; Visit Provider Nurse Practitioner Family
DX: R39.89 Other symptoms and signs involving the genitourinary system (principal)
CPT/HCPCS: 81001; 87086

== ENCOUNTER → 2021-01-25 11:01 | Outpatient (CLI) | payer OTHER, SELFPAY ==
[2021-01-25 11:11] LABS: Bacteria Urine None Seen; WBC Urine None Seen (0-5/HPF)
[2021-01-25 11:28] LABS: Appearance Urine UA CLEAR; Bilirubin Urine UA NEGATIVE (NEGATIVE); Color Urine UA YELLOW; Glucose Urine UA NEGATIVE (Negative); Ketones Urine UA NEGATIVE (NEGATIVE); Leukocyte Esterase Urine UA NEGATIVE (NEGATIVE); Nitrite Urine UA NEGATIVE (Negative); Occult Blood Urine UA TRACE-INTACT (Negative); Protein Urine UA NEGATIVE (Negative); Urobilinogen Urine UA 0.2 E.U./dL (0.2)
[2021-01-25 11:34] LABS: RBC Urine 0-1/HPF (0-5/HPF)
[2021-01-25 11:35] LABS: Culture Indicated Urine Cult Not Indicated; Squamous Epithelial Cell Urine 1-5 /HPF (0-5/HPF)
== END ==
PROVIDERS: PCP Nurse Practitioner Family; Referring Provider Nurse Practitioner Family; Visit Provider Nurse Practitioner Family
DX: R30.0 Dysuria (principal)
CPT/HCPCS: 81001

== ENCOUNTER → 2021-01-28 12:45 | Outpatient (CLI) | payer OTHER, SELFPAY ==
[2021-01-28 12:52] LABS: Bacteria Urine None Seen
[2021-01-28 13:17] LABS: Appearance Urine UA Slightly Cloudy; Color Urine UA ORANGE
[2021-01-28 13:30] LABS: Amorphous Sediment Urine 2+; Culture Indicated Urine Cult Not Indicated; RBC Urine 5-10/HPF (0-5/HPF); Squamous Epithelial Cell Urine 5-10 /HPF (0-5/HPF); WBC Urine 1-5/HPF (0-5/HPF)
== END ==
PROVIDERS: PCP Nurse Practitioner Family; Referring Provider Nurse Practitioner Family; Visit Provider Nurse Practitioner Family
DX: R31.9 Hematuria, unspecified (principal)
CPT/HCPCS: 81001

== ENCOUNTER → 2021-01-29 15:16 | Outpatient (CLI) | payer OTHER, SELFPAY ==
[2021-01-29 16:32] LABS: Bilirubin Urine UA NEGATIVE (NEGATIVE); Color Urine UA YELLOW; Glucose Urine UA NEGATIVE (Negative); Ketones Urine UA NEGATIVE (NEGATIVE); Leukocyte Esterase Urine UA NEGATIVE (NEGATIVE); Nitrite Urine UA POSITIVE (Negative); Occult Blood Urine UA 1+ (Negative); Protein Urine UA NEGATIVE (Negative); Urobilinogen Urine UA 0.2 E.U./dL (0.2)
[2021-01-29 17:12] LABS: Amorphous Sediment Urine 1+; Appearance Urine UA Slightly Cloudy; RBC Urine 1-5/HPF (0-5/HPF); Squamous Epithelial Cell Urine 5-10 /HPF (0-5/HPF); WBC Urine 5-10/HPF (0-5/HPF); pH Urine UA 7.5 (4.5-8.0)
[2021-01-29 17:13] LABS: Bacteria Urine Moderate (10-30); Culture Indicated Urine Specimen Cultured; Mucus Urine 1+ (Negative)
== END ==
PROVIDERS: PCP Nurse Practitioner Family; Referring Provider Nurse Practitioner Family; Visit Provider Nurse Practitioner Family
DX: R31.9 Hematuria, unspecified (principal); R39.89 Other symptoms and signs involving the genitourinary system
CPT/HCPCS: 81001; 87086

== ENCOUNTER → 2021-04-03 08:01 | Outpatient (CLI) | payer OTHER, SELFPAY ==
[2021-04-03 09:42] LABS: Hematocrit 46.6 % (36-46); Hemoglobin 15.5 g/dL (12.0-16.0); Mean Corpuscular HGB Conc 33.3 % (30-36); Mean Corpuscular Hemoglobin 31.8 PG (26-34); Mean Corpuscular Volume 95.4 fL (80-100); Platelet Count 218 X10^3/uL (150-400); Red Blood Cell Count 4.89 X10^6/uL (4.0-5.2); Red Cell Distribution Width 14.8 % (11.6-14.8)
[2021-04-03 09:59] LABS: Alanine Aminotransferase 19 IU/L (<35); Albumin 3.8 g/dL (3.5-5.0); Albumin Globulin Ratio 1.2 (1.0-2.8); Alkaline Phosphatase 72 U/L (38-126); Aspartate Aminotransferase 28 IU/L (14-36); Bilirubin Total 0.8 mg/dL (0.2-1.3); Blood Urea Nitrogen 23 mg/dL (7-17); Calcium 9.3 mg/dL (8.4-10.2); Carbon Dioxide 31 mmol/L (22-32); Chloride 105 mmol/L (98-107); Cholesterol 180 mg/dL (140-199); Estimated Glomerular Filt Rate > 60.0 mL/min (>60); Globulin 3.2 g/dL (1.7-4.1); Glucose 102 mg/dL (80-110); HDL Cholesterol 50 mg/dL (40-60); HEMOLYSIS 19 (0-50); LDL Cholesterol Calculated 116 mg/dL (<100); Potassium 4.4 mmol/L (3.4-5.1); Sodium 141 mmol/L (137-145); Triglycerides 71 mg/dL (35-150)
[2021-04-03 10:16] LABS: Vitamin D 25 Hydroxy (D3) 42.5 ng/mL (30.0-100.0)
== END ==
PROVIDERS: PCP Nurse Practitioner Family; Referring Provider Nurse Practitioner Family; Visit Provider Nurse Practitioner Family
DX: Z00.00 Encounter for general adult medical examination without abnormal findings (principal); E78.5 Hyperlipidemia, unspecified; M81.0 Age-related osteoporosis without current pathological fracture; I10 Essential (primary) hypertension; J41.8 Mixed simple and mucopurulent chronic bronchitis
CPT/HCPCS: 36415; 80053; 80061; 82306; 85027

== ENCOUNTER 2021-05-23 11:06 | Emergency (ER) | payer OTHER, SELFPAY ==
[2021-05-23] VITALS (8 sets, daily range): BP systolic 144–158; BP diastolic 65–70; PULSE 56–89; RESP 18–34; TEMP 36.8; O2SAT 91–95; BMI 40.7
--- NOTE | 2021-05-23 11:08 | ED_ITS ---
HPI - SOB/Dyspnea General Chief Complaint: Shortness of Breath/Dyspnea Stated Complaint: shortness of breath,coughing, possible covid Time Seen by Provider: 05/23/21 11:07 History of Present Illness HPI Narrative: 76-year-old female smoker with history of CHF presents from the walk-in clinic for evaluation increasing shortness of breath over the past few days. She states that she has been trying to get her medications refilled for at least a week but then 3 days ago she ran out of her water pill. Over the past few days she has had a slow but progressive increase in short of breath with exertion and lying flat. She admits to some swelling in her lower extremities. She denies any fever, chills, dizziness or lightheadedness. She does state that she produces some whitish sputum. She denies nausea or vomiting. Related Data Home Medications Medication Instructions Recorded Confirmed CA PANTOTHENATE/FOLIC ACID/VIT 1 tab PO QDAY #0 09/10/12 05/23/21 (MULTIVITAMIN) fexofenadine 180 mg tablet 180 mg PO QDAY #0 11/26/17 05/23/21 Calcium/Vitamin D3 See Rx Instructions .ROUTE .COMPLEX 08/09/18 05/23/21 Previous Rx's Medication Instructions Recorded albuterol sulfate 90 mcg/actuation 2 puff INHALATION Q4HP PRN #1 inh 07/19/20 aerosol inhaler (Ventolin HFA) meclizine 12.5 mg tablet 12.5 mg PO TID PRN #14 tab 08/01/20 alendronate 70 mg tablet 70 mg PO QWEEK #12 tab 09/19/20 ofloxacin 0.3 % eye drops 2 drp EYE-BOTH QID 5 Days #10 ml 09/19/20 montelukast 10 mg tablet 10 mg PO QPM #90 tab 01/16/21 mupirocin 2 % topical ointment 1 applic TOPICAL BID #30 g 03/14/21 ipratropium 0.5 mg-albuterol 3 mg 3 ml INHALATION Q6HP PRN #90 ea 03/29/21 (2.5 mg base)/3 mL nebulization soln fluticasone 55 mcg-salmeterol 14 1 inh INHALATION BID #1 each 04/16/21 mcg/actuation breath activated powder silver sulfadiazine 1 % topical 1 applic TOPICAL BID #25 g 04/23/21 cream (Silvadene) hydrochlorothiazide 25 mg tablet 25 mg PO QDAY #90 tab 05/20/21 hydrochlorothiazide 12.5 mg tablet 12.5 mg PO DAILY #20 tab 05/23/21 Allergies Allergy/AdvReac Type Severity Reaction Status Date / Time No Known Drug Allergies Allergy Verified 05/23/21 10:24 Review of Systems Review of Systems Narrative: GENERAL: See HPI HEENT: Denies sinus pain, ear pain, sore throat, difficulty swallowing, dizziness. RESPIRATORY: See HPI CARDIOVASCULAR: Denies chest pain, palpitations, orthopnea, edema, GASTROINTESTINAL: Denies nausea, vomiting, abdominal pain, diarrhea, constipation, melena. : Denies dysuria, frequency, incontinence, hematuria, urinary retention. MUSCULOSKELETAL: denies weakness, joint pain, or bony pain SKIN: Denies rash, skin lesions, or other NEUROLOGIC: Denies weakness, headache, numbness, change in speech, confusion, seizures, incoordination. PSYCHIATRIC: No concerning psychosocial issues. 12 point review of systems is negative except for those stated above Patient History Medical History Allergies Asthma Chicken pox Chronic obstructive pulmonary disease (12/23/12) Hematuria Hyperlipidemia Osteoarthritis Osteopenia after menopause Osteoporosis Polyp of colon (04/02/11) Psoriasis Sensation of pressure in bladder area Smoker unmotivated to quit Surgical History History of colonoscopy with polypectomy (05/04/09) History of ventral hernia repair (08/10/07) Family History Father Diabetes mellitus History of heart disease Hypertension Stroke Mother History of heart disease Hypertension Grandfather History of heart disease Grandmother History of heart disease Social History Smoking Status: Current every day smoker Tobacco: How many years used: 58 quit status: considering quitting second hand exposure: No alcohol intake: never substance use type: does not use Smoking Status: Current every day smoker tobacco type: cigarettes alcohol intake frequency: 0-2 drinks per day Substance Use Type: does not use Exam Narrative Exam Narrative: GENERAL: 76 [] year old patient appears stated age. Well- developed patient, in mild distress. HEAD: Atraumatic. Normocephalic. EYES: Pupils equal round and reactive. Extraocular motions intact. No scleral icterus. No injection or drainage. ENT: Nose without bleeding, purulent drainage. Throat without erythema, tonsillar hypertrophy or exudate. Airway patent. NECK: Trachea midline. Non tender CARDIOVASCULAR: Regular rate and rhythm without murmurs, gallops, or rubs. RESPIRATORY: Faint crackles in bilateral bases but no significant work of breathing demonstrated by use of accessory muscles GASTROINTESTINAL: Abdomen soft, non-tender, nondistended. EXTREMITIES: No edema or joint tenderness. BACK: Nontender without deformity or crepitance. No flank tenderness. NEURO: AOx3. SKIN: No rash or erythema of visible areas Initial Vital Signs Initial Vital Signs: Vital Signs Pulse Rate 56 L 05/23/21 11:14 Respiratory Rate 34 H 05/23/21 11:14 Pulse Oximetry 95 05/23/21 11:14 Course Course Course Narrative: Patient feels much better after the above-stated therapies. Multiple diagnoses considered including pneumonia versus myocardial infarction versus electrolyte abnormality. The source of her dyspnea is most consistent with accidental medical noncompliance. She felt significant improvement after Lasix and be initial hypoxia had resolved. Patient states she is feeling much better and questioning discharge. She states she expects to get her medications and the male tomorrow or the day after. I have written a prescription which she can get filled in the event does not arrive. Return precautions given and questions answered to her apparent satisfaction Orders Ordered: ED Orders 05/23/21 11:15 XR chest 1V Stat EKG-12 Lead Stat Measure peak expiratory flow ONCE RT Consult Eval and Treat Now 05/23/21 11:16 Complete Blood Count AUTO DIFF Stat Comprehensive Metabolic Panel Stat Lactate (Lactic Acid) Stat 05/23/21 12:20 NT-proBNP (BNP-Adult 18+) Stat Troponin & CK Cardiac Panel Stat Discontinued Medications Furosemide (Furosemide 40 Mg/4 Ml Vial) 40 mg IV NOW ONE Stop: 05/23/21 12:01 Last Admin: 05/23/21 12:08 Dose: 40 mg Documented by: AYAN Vital Signs Vital signs: Vital Signs - 8 hr 05/23/21 11:14 05/23/21 11:18 05/23/21 11:30 Temperature 98.3 F Pulse Rate 56 L 61 58 L Respiratory Rate 34 H 18 34 H Blood Pressure 158/68 H 151/70 H Pulse Oximetry 95 92 91 05/23/21 12:00 05/23/21 12:30 05/23/21 13:00 Temperature Pulse Rate 60 61 64 Respiratory Rate 29 H 24 25 H Blood Pressure 144/68 H 150/66 H 146/65 H Pulse Oximetry 94 93 95 05/23/21 13:30 05/23/21 13:31 Temperature Pulse Rate 89 63 Respiratory Rate 31 H 25 H Blood Pressure 151/67 H Pulse Oximetry 95 95 MDM - SOB/Dyspnea Lab Data Result diagrams: 05/23/21 11:16 05/23/21 11:16 Labs: Lab Results 05/23/21 05/23/21 05/23/21 Range/Units 11:16 11:16 11:16 WBC 6.0 (4.5-11.0) X10^3/uL RBC 4.84 (4.0-5.2) X10^6/uL Hgb 15.1 (12.0-16.0) g/dL Hct 46.4 H (36-46) % MCV 95.9 (80-100) fL MCH 31.3 (26-34) PG MCHC 32.6 (30-36) % RDW 14.4 (11.6-14.8) % Plt Count 215 (150-400) X10^3/uL Neut % (Auto) 66.7 (50-75) % Lymph % (Auto) 19.8 L (25-40) % [place] % (Auto) 8.3 (3-14) % Eos % (Auto) 4.1 H (2-4) % Baso % (Auto) 1.1 (0-2) % Neut # (Auto) 4000 (6442-2454) /uL Lymph # (Auto) 1200 (0345-8378) /uL [place] # (Auto) 500 (0-900) /uL Eos # (Auto) 200 (0-450) /uL Baso # (Auto) 100 (0-100) /uL Sodium 141 (137-145) mmol/L Potassium 4.2 (3.4-5.1) mmol/L Chloride 107 (98-107) mmol/L Carbon Dioxide 30 (22-32) mmol/L BUN 21 H (7-17) mg/dL Creatinine 0.54 (0.52-1.04) mg/dL Estimated GFR > 60.0 (>60) mL/min BUN/Creatinine Ratio 38.9 H (6-22) Glucose 118 H (80-110) mg/dL Lactate 0.8 (0.7-2.1) mmol/L Calcium 9.7 (8.4-10.2) mg/dL Total Bilirubin 0.8 (0.2-1.3) mg/dL AST 25 (14-36) IU/L ALT 20 (<35) IU/L Alkaline Phosphatase 73 (38-126) U/L Total Creatine Kinase (30-135) U/L CK-MB (CK-2) CK-MB (CK-2) Rel Index Troponin I (0.01-0.034) ng/mL NT-Pro-B Natriuret Pep (<450) pg/mL Total Protein 7.0 (6.3-8.2) g/dL Albumin 3.9 (3.5-5.0) g/dL Globulin 3.1 (1.7-4.1) g/dL Albumin/Globulin Ratio 1.3 (1.0-2.8) 05/23/21 Range/Units 12:20 WBC (4.5-11.0) X10^3/uL RBC (4.0-5.2) X10^6/uL Hgb (12.0-16.0) g/dL Hct (36-46) % MCV (80-100) fL MCH (26-34) PG MCHC (30-36) % RDW (11.6-14.8) % Plt Count (150-400) X10^3/uL Neut % (Auto) (50-75) % Lymph % (Auto) (25-40) % [place] % (Auto) (3-14) % Eos % (Auto) (2-4) % Baso % (Auto) (0-2) % Neut # (Auto) (5166-6616) /uL Lymph # (Auto) (8716-0315) /uL [place] # (Auto) (0-900) /uL Eos # (Auto) (0-450) /uL Baso # (Auto) (0-100) /uL Sodium (137-145) mmol/L Potassium (3.4-5.1) mmol/L Chloride (98-107) mmol/L Carbon Dioxide (22-32) mmol/L BUN (7-17) mg/dL Creatinine (0.52-1.04) mg/dL Estimated GFR (>60) mL/min BUN/Creatinine Ratio (6-22) Glucose (80-110) mg/dL Lactate (0.7-2.1) mmol/L Calcium (8.4-10.2) mg/dL Total Bilirubin (0.2-1.3) mg/dL AST (14-36) IU/L ALT (<35) IU/L Alkaline Phosphatase (38-126) U/L Total Creatine Kinase 85 (30-135) U/L CK-MB (CK-2) TNP CK-MB (CK-2) Rel Index TNP Troponin I < 0.012 (0.01-0.034) ng/mL NT-Pro-B Natriuret Pep 96 (<450) pg/mL Total Protein (6.3-8.2) g/dL Albumin (3.5-5.0) g/dL Globulin (1.7-4.1) g/dL Albumin/Globulin Ratio (1.0-2.8) Discharge Plan Departure Patient Disposition: Home Clinical Impression: Pulmonary edema Qualifiers: Chronicity: acute Qualified Code(s): J81.0 - Acute pulmonary edema Instructions: DI for Heart Failure Activity Restrictions/Additional Instructions: *You have been diagnosed with [pulmonary edema, improved over the visit, most likely due to your medication problem] *What to do: *Please continue to take your regular medications as directed. [ x] New medication prescriptions sent to your pharmacy: [[facility] in [place]] [ ] New medication written as a paper prescription [ ] No new medications given *Please follow up with your primary care provider in 2-3 days, call for an appointment. Let them know you were seen in the Emergency Department and that we ask that you be seen in follow up. We will electronically transmit a record of today's note if your PCP is in our system *If you do not have a primary care provider please contact the [facility] Resource line at [phone]. They will ask some questions about your medical history and help get you set up with a doctor in the community. *Return to Emergency Department if you should have any new, worsening or concerning symptoms, such as [fever greater than 101 F, shaking chills, worsening pain, persistent vomiting or other bothersome symptoms] Prescriptions: New hydrochlorothiazide 12.5 mg tablet 12.5 mg PO DAILY Qty: 20 RF: 0 No Action mupirocin 2 % ointment 1 applic topical BID Qty: 30 RF: 0 silver sulfadiazine [Silvadene] 1 % cream 1 applic topical BID Qty: 25 RF: 1 Calcium/Vitamin D3 See Rx Instructions .ROUTE .COMPLEX RF: 0 meclizine 12.5 mg tablet 12.5 mg PO TID PRN (Reason: vertigo) Qty: 14 RF: 0 CA PANTOTHENATE/FOLIC ACID/VIT (MULTIVITAMIN) 1 tab PO QDAY Qty: 0 RF: 0 fexofenadine 180 MG tablet 180 mg PO QDAY Qty: 0 RF: 0 montelukast 10 mg tablet 10 mg PO QPM Qty: 90 RF: 1 ipratropium-albuterol 0.5 mg-3 mg(2.5 mg base)/3 mL solution for nebulization 3 ml INHALATION Q6HP PRN (Reason: shortness of breath) Qty: 90 RF: 0 hydrochlorothiazide 25 mg tablet 25 mg PO QDAY Qty: 90 RF: 1 ofloxacin 0.3 % drops 2 drp EYE-BOTH QID 5 Days Qty: 10 RF: 1 alendronate 70 mg tablet 70 mg PO QWEEK Qty: 12 RF: 3 fluticasone propion-salmeterol 55-14 mcg/actuation aerosol powdr breath activated 1 inh INHALATION BID Qty: 1 RF: 2 albuterol sulfate [Ventolin HFA] 90 mcg/actuation HFA aerosol inhaler 2 puff inhalation Q4HP PRN (Reason: shortness of breath or wheezing) Qty: 1 RF: 3 Referrals: Rubin Acosta ARNP [Primary Care Provider] -
--- NOTE | 2021-05-23 11:15 | DI.RAD.S_ITS ---
PROCEDURE: XR CHEST 1V INDICATIONS: shortness of breath TECHNIQUE: One view of the chest was acquired. COMPARISON: [facility], CR, XR CHEST 1V, 12/21/2020, 8:46. FINDINGS: Surgical changes and devices: None. Lungs and pleura: Mildly increased pulmonary interstitial markings and cephalization of pulmonary vessels. Mediastinum: Heart size mildly enlarged. Aortic atherosclerosis. Bones and chest wall: No suspicious bony lesions. Overlying soft tissues appear unremarkable. IMPRESSION: Mildly enlarged heart with mildly increased interstitial markings presumably representing mild pulmonary edema. Dictated by: Mark Murillo M.D. on 05/23/2021 at 11:35 Approved by: Mark Murillo M.D. on 05/23/2021 at 11:36
[2021-05-23 11:45] LABS: Add Manual Diff / Slide Review NO; Basophils Absolute Auto 100 /uL (0-100); Basophils Percent Auto 1.1 % (0-2); Eosinophils Absolute Auto 200 /uL (0-450); Eosinophils Percent Auto 4.1 % (2-4); Hematocrit 46.4 % (36-46); Hemoglobin 15.1 g/dL (12.0-16.0); Lactate (Lactic Acid) 0.8 mmol/L (0.7-2.1); Lymphocytes Absolute Auto 1200 /uL (1100-4500); Lymphocytes Percent Auto 19.8 % (25-40); Mean Corpuscular HGB Conc 32.6 % (30-36); Mean Corpuscular Hemoglobin 31.3 PG (26-34); Mean Corpuscular Volume 95.9 fL (80-100); Monocytes Absolute Auto 500 /uL (0-900); Monocytes Percent Auto 8.3 % (3-14); Neutrophils Absolute Auto 4000 /uL (1500-7000); Neutrophils Percent Auto 66.7 % (50-75); Platelet Count 215 X10^3/uL (150-400); Red Blood Cell Count 4.84 X10^6/uL (4.0-5.2); Red Cell Distribution Width 14.4 % (11.6-14.8)
[2021-05-23 11:47] LABS: Alanine Aminotransferase 20 IU/L (<35); Albumin 3.9 g/dL (3.5-5.0); Albumin Globulin Ratio 1.3 (1.0-2.8); Alkaline Phosphatase 73 U/L (38-126); Aspartate Aminotransferase 25 IU/L (14-36); BUN Creatinine Ratio 38.9 (6-22); Bilirubin Total 0.8 mg/dL (0.2-1.3); Blood Urea Nitrogen 21 mg/dL (7-17); Calcium 9.7 mg/dL (8.4-10.2); Carbon Dioxide 30 mmol/L (22-32); Chloride 107 mmol/L (98-107); Estimated Glomerular Filt Rate > 60.0 mL/min (>60); Globulin 3.1 g/dL (1.7-4.1); Glucose 118 mg/dL (80-110); HEMOLYSIS < 15 (0-50); Potassium 4.2 mmol/L (3.4-5.1); Sodium 141 mmol/L (137-145)
[2021-05-23] MEDS: FUROSEMIDE 40 MG/4 ML VIAL IV (12:08)
[2021-05-23 12:35] LABS: Creatine Kinase 85 U/L (30-135)
[2021-05-23 12:49] LABS: NT-proBNP (BNP-Adult 18+) 96 pg/mL (<450); Troponin I < 0.012 ng/mL (0.01-0.034)
== END 2021-05-23 14:01 | disposition home or self-care (01) ==
PROVIDERS: Emergency Provider Emergency Medicine; PCP Nurse Practitioner Family
DX: J81.0 Acute pulmonary edema (principal)
CPT/HCPCS: 36415; 71045; 80053; 82550; 83605; 83880; 84484; 85025; 87635; 93005; 96374; 99284; J1940

== ENCOUNTER → 2021-06-08 08:31 | Outpatient (CLI) | payer OTHER, SELFPAY ==
[2021-06-08 09:22] LABS: COVID19 -Nasal RAPID Negative (Negative)
== END ==
PROVIDERS: PCP Nurse Practitioner Family; Referring Provider Physician Assistant; Visit Provider Physician Assistant
DX: Z20.822 Contact with and (suspected) exposure to COVID-19 (principal); R05 Cough
CPT/HCPCS: 87635

== ENCOUNTER → 2021-06-13 07:57 | Outpatient (CLI) | payer OTHER, SELFPAY ==
--- NOTE | 2021-06-13 07:59 | DI.ECHO.S_ITS ---
[place] +---------+ [facility] +---------+ : : [address] : [place] : : : : [id number] : : : : Phone: [phone]+ Echocardiogram Report + + :Name: NOE RODRIGUEZ Study Date: 06/13/2021 Height: 63 in : :[facility] ReadingLocation: Weight: 230 lb : : Gender: Female BSA: 2.1 m2 : :: 1945 Age: 76 yrs BP: 152/74 mmHg: :Reason For Study: PROGRESSIVE CLINICAL CONGESTIVE HEART : :FAILURE : :Ordering Physician: ROSA GARCIA : :Janene Jean Performed By: Yina Encarnacion : :Referring: ROSA GARCIA D.O : + + Interpretation Summary 1) Borderline increased left ventricular thickness with normal size, normal wall motion, and normal systolic function (EF 60-65%). 2) Normal right ventricular size and function. 3) Diastolic parameters suggest a pseudonormalization pattern, consistent with probable elevated filling pressures. 4) No significant valvular abnormalities. 5) The ascending aorta is mildly enlarged at 4.1cm. 6) Compared to the Echo done 01/14/2013, grade 2 diastolic dysfunction is present on this study. Procedure: A two-dimensional transthoracic echocardiogram with color flow and Doppler was performed. The study quality was technically adequate. Comparison is made with the echocardiogram of 01/14/2013. The patient was in sinus rhythm with heart rates between 54-73 bpm during the exam. Left Ventricle: The left ventricle is normal in size. Left ventricular wall thickness is borderline increased. The ejection fraction is estimated to be 60-65%. Left ventricular systolic function appears normal without focal wall motion abnormalities. Diastolic parameters suggest a pseudonormalization pattern, consistent with probable elevated filling pressures. Right Ventricle: The right ventricle is normal in size and function. Atria: The left atrium is moderately dilated. Right atrium not well visualized secondary to technical limitations. There is no Doppler evidence for an interatrial shunt. Mitral Valve: The mitral valve leaflets appear mildly thickened, but open well. There is mild mitral annular calcification. There is mild mitral regurgitation. Aortic Valve: The aortic valve is trileaflet. The aortic valve opens well. There is no aortic valve stenosis. There is trace aortic regurgitation. Tricuspid Valve: The tricuspid valve is normal in structure and function. There is trace tricuspid regurgitation. Pulmonary artery pressures cannot be estimated because of the lack of a measurable TR jet velocity. Pulmonic Valve: The pulmonic valve leaflets are thin and pliable; valve motion is normal. There is mild pulmonic regurgitation. Great Vessels: The aortic root is normal size. The ascending aorta is mildly enlarged. The inferior vena cava was not visualized. Pericardium/ Pleura There is no pericardial effusion. There is no pleural effusion. MMode/2D Measurements & Calculations LVIDd: 5.0 cm LVOT diam: 2.2 cm LVIDs: 3.1 cm Ao root diam: 3.2 cm FS: 37.0 % asc Aorta Diam: 4.1 cm IVSd: 1.0 cm Ao Arch Diam (Prox Trans): 2.5 cm LVPWd: 1.2 cm LV moses. diameter/BSA (cm/m^2): 2.4 LV sys. diameter/BSA (cm/m^2): 1.5 LA A2 area: 28.3 cm2 RVD1 (basal): 3.7 cm LA A4 area: 29.6 cm2 TAPSE: 2.2 cm LA length (vol): 7.0 cm LA vol: 102.2 ml LA vol index: 49.8 ml/m2 Doppler Measurements & Calculations Ao V2 max: 156.1 cm/sec LVOT Max Mike: 99.9 cm/sec Ao V2 mean: 110.4 cm/sec LV V1 max P.0 mmHg Ao max P.7 mmHg LV V1 VTI: 24.2 cm Ao mean P.5 mmHg CJ(I,D): 2.4 cm2 Ao V2 VTI: 36.1 cm CJ(V,D): 2.3 cm2 sev ratio: 0.67 CJ indexed to BSA (cm^2/m^2): 1.2 MV E max mike: 75.8 cm/sec PA V2 max: 98.7 cm/sec MV A max mike: 103.1 cm/sec PA V2 mean: 60.2 cm/sec MV E/A: 0.73 PA mean P.7 mmHg Med Peak E' Mike: 3.7 cm/sec PA pr(Accel): 41.3 mmHg E/E' med: 20.6 Lat Peak E' Mike: 5.1 cm/sec E/E' lat: 14.9 E/e' average: 17.8 MV dec time: 0.28 sec SV(LVOT): 88.0 ml Reading Physician:12:36 PM
== END ==
PROVIDERS: PCP Nurse Practitioner Family; Referring Provider Family Medicine; Visit Provider Family Medicine
DX: I34.0 Nonrheumatic mitral (valve) insufficiency (principal); I37.1 Nonrheumatic pulmonary valve insufficiency; I77.89 Other specified disorders of arteries and arterioles; J81.0 Acute pulmonary edema; I50.9 Heart failure, unspecified; I11.0 Hypertensive heart disease with heart failure
CPT/HCPCS: 93306

== ENCOUNTER → 2021-06-18 09:39 | Outpatient (CLI) | payer OTHER, SELFPAY ==
[2021-06-18 10:08] LABS: COVID19 -Nasal RAPID Negative (Negative)
== END ==
PROVIDERS: PCP Nurse Practitioner Family; Visit Provider Physician Assistant
DX: R05 Cough (principal); R09.89 Other specified symptoms and signs involving the circulatory and respiratory systems
CPT/HCPCS: 87635

== ENCOUNTER → 2021-06-18 10:02 | Outpatient (CLI) | payer OTHER, SELFPAY ==
--- NOTE | 2021-06-18 10:04 | DI.RAD.S_ITS ---
PROCEDURE: XR CHEST 2V INDICATIONS: cough, hx copd TECHNIQUE: 2 views of the chest were acquired. COMPARISON: [facility], CR, XR CHEST 1V, 05/23/2021, 11:19. FINDINGS: Surgical changes and devices: None. Lungs and pleura: Mild patchy bilateral mid and lower lung reticulonodular opacity. No pleural effusions or pneumothorax. Mediastinum: Mediastinal contours are normal. Heart size is normal. Bones and chest wall: No suspicious bony abnormalities. Soft tissues appear unremarkable. IMPRESSION: Mild atypical pneumonia. Dictated by: Osman Mina M.D. on 06/18/2021 at 10:56 Approved by: Osman Mina M.D. on 06/18/2021 at 10:57
== END ==
PROVIDERS: PCP Nurse Practitioner Family; Referring Provider Physician Assistant; Visit Provider Physician Assistant
DX: J18.9 Pneumonia, unspecified organism (principal); R05 Cough
CPT/HCPCS: 71046; 87635

== ENCOUNTER 2021-07-17 09:52 | Emergency (ER) | payer OTHER, SELFPAY ==
[2021-07-17] VITALS (7 sets, daily range): BP systolic 117–153; BP diastolic 86–94; PULSE 60–93; RESP 18–38; TEMP 36.4; O2SAT 94–95; BMI 40.5
--- NOTE | 2021-07-17 09:59 | DI.RAD.S_ITS ---
PROCEDURE: XR CHEST 2V INDICATIONS: cough, short of breath TECHNIQUE: 2 views of the chest were acquired. COMPARISON: [facility], CR, XR CHEST 2V, 10/23/2020, 8:51. [facility], CR, XR CHEST 2V, 06/18/2021, 9:58. [facility], CR, XR CHEST 1V, 05/23/2021, 11:19. FINDINGS: Surgical changes and devices: None. Lungs and pleura: Prominent pulmonary markings. No consolidation is identified. No significant pleural effusions or pneumothorax. Mediastinum: Mediastinal contours appear unchanged. Heart size is prominent. Bones and chest wall: No suspicious bony abnormalities. Soft tissues appear unremarkable. IMPRESSION: Prominent pulmonary markings bilaterally. Suspect mild fluid overload/CHF or pulmonary vasculature engorgement. Dictated by: Oziel Hawthorne M.D. on 07/17/2021 at 11:06 Approved by: Oziel Hawthorne M.D. on 07/17/2021 at 11:09
--- NOTE | 2021-07-17 09:59 | ED_ITS ---
HPI - SOB/Dyspnea General Chief Complaint: Extremity Problem,Nontraumatic Stated Complaint: sent from [facility], poss blood clot in leg Time Seen by Provider: 07/17/21 09:53 History of Present Illness HPI Narrative: 76-year-old female daily smoker with history of pneumonia, COPD, CHF presents from the walk-in clinic for evaluation of ongoing cough and mild shortness of breath which has been present for over 1 month. She had been previously treated for what was thought to be an atypical pneumonia with antibiotics but her symptoms continue. About 1 week ago she was started on new medications including losartan for blood pressure. Her cough and mild shortness of breath have persisted. She presented to the walk-in clinic today for evaluation and with this story and the complaint of some pain and swelling in her posterior calf she was here for evaluation. She denies any fever chills, recent travel, history of blood clot or cancer. She has no chest pain. She denies any nausea, vomiting or diarrhea. She denies any dysuria, frequency or urgency. Related Data Home Medications Medication Instructions Recorded Confirmed CA PANTOTHENATE/FOLIC ACID/VIT 1 tab PO QDAY #0 09/10/12 06/18/21 (MULTIVITAMIN) fexofenadine 180 mg tablet 180 mg PO QDAY #0 11/26/17 06/18/21 Calcium/Vitamin D3 See Rx Instructions .ROUTE .COMPLEX 08/09/18 06/18/21 Previous Rx's Medication Instructions Recorded albuterol sulfate 90 mcg/actuation 2 puff INHALATION Q4HP PRN #1 inh 07/19/20 aerosol inhaler (Ventolin HFA) meclizine 12.5 mg tablet 12.5 mg PO TID PRN #14 tab 08/01/20 alendronate 70 mg tablet 70 mg PO QWEEK #12 tab 09/19/20 ofloxacin 0.3 % eye drops 2 drp EYE-BOTH QID 5 Days #10 ml 09/19/20 montelukast 10 mg tablet 10 mg PO QPM #90 tab 01/16/21 mupirocin 2 % topical ointment 1 applic TOPICAL BID #30 g 03/14/21 ipratropium 0.5 mg-albuterol 3 mg 3 ml INHALATION Q6HP PRN #90 ea 03/29/21 (2.5 mg base)/3 mL nebulization soln fluticasone 55 mcg-salmeterol 14 1 inh INHALATION BID #1 each 04/16/21 mcg/actuation breath activated powder silver sulfadiazine 1 % topical 1 applic TOPICAL BID #25 g 04/23/21 cream (Silvadene) hydrochlorothiazide 25 mg tablet 25 mg PO QDAY #90 tab 05/20/21 hydrochlorothiazide 12.5 mg tablet 12.5 mg PO DAILY #20 tab 05/23/21 lisinopril 10 1 tab PO DAILY #90 tab 05/29/21 mg-hydrochlorothiazide 12.5 mg tablet azelastine 137 mcg (0.1 %) nasal 1 spray INTRANASAL BID #30 ml 06/08/21 spray aerosol benzonatate 100 mg capsule 100 mg PO BID-TID PRN #14 cap 06/18/21 codeine 10 mg-guaifenesin 100 mg/5 5 ml PO Q6H PRN #118 ml 06/28/21 mL oral liquid enoxaparin 100 mg/mL subcutaneous 100 mg SUBCUT Q12H #10 ml 07/17/21 syringe (Lovenox) warfarin 2.5 mg tablet 2.5 mg PO DAILY #30 tab 07/17/21 Allergies Allergy/AdvReac Type Severity Reaction Status Date / Time No Known Drug Allergies Allergy Verified 07/17/21 10:00 Review of Systems Review of Systems Narrative: GENERAL: Denies chills, fatigue, malaise, fever, sweats. HEENT: Denies sinus pain, ear pain, sore throat, difficulty swallowing, dizziness. RESPIRATORY: HPI CARDIOVASCULAR: See HPI GASTROINTESTINAL: Denies nausea, vomiting, abdominal pain, diarrhea, constipation, melena. : Denies dysuria, frequency, incontinence, hematuria, urinary retention. MUSCULOSKELETAL: denies weakness, joint pain, or bony pain SKIN: Denies rash, skin lesions, or other NEUROLOGIC: Denies weakness, headache, numbness, change in speech, confusion, seizures, incoordination. PSYCHIATRIC: No concerning psychosocial issues. 12 point review of systems is negative except for those stated above Patient History Medical History (HFpEF) heart failure with preserved ejection fraction (~06/2021) Abnormal echocardiogram (05/2021) Allergies Asthma Chicken pox Chronic obstructive pulmonary disease (03/07/13) Diastolic dysfunction (05/2021) Hematuria Hyperlipidemia Osteoarthritis Osteopenia after menopause Osteoporosis Polyp of colon (04/02/11) Psoriasis Sensation of pressure in bladder area Smoker unmotivated to quit Surgical History History of colonoscopy with polypectomy (05/04/09) History of ventral hernia repair (08/10/07) Family History Father Diabetes mellitus History of heart disease Hypertension Stroke Mother History of heart disease Hypertension Grandfather History of heart disease Grandmother History of heart disease Social History Smoking Status: Current every day smoker (~<1/2 PPD ) Tobacco: How many years used: 58 quit status: considering quitting second hand exposure: No alcohol intake: never substance use type: does not use Smoking Status: Current every day smoker (~<1/2 PPD ) tobacco type: cigarettes alcohol intake frequency: 0-2 drinks per day Substance Use Type: does not use Exam Narrative Exam Narrative: GENERAL: [76 year old patient appears stated age. Well-developed patient, in mild distress. No obvious or significant increased work of breathing HEAD: Atraumatic. Normocephalic. EYES: Pupils equal round and reactive. Extraocular motions intact. No scleral icterus. No injection or drainage. ENT: Nose without bleeding, purulent drainage. Throat without erythema, tonsillar hypertrophy or exudate. Airway patent. NECK: Trachea midline. Non tender CARDIOVASCULAR: Decreased breath sounds bilaterally with prolonged expiratory phase, faint crackles bilateral bases RESPIRATORY: Clear to auscultation. Breath sounds equal bilaterally. No wheezes, rales, or rhonchi. GASTROINTESTINAL: Abdomen soft, non-tender, nondistended. EXTREMITIES: She does have some pain and swelling with tenderness to palpation of left posterior calf BACK: Nontender without deformity or crepitance. No flank tenderness. NEURO: AOx3. SKIN: No rash or erythema of visible areas Initial Vital Signs Initial Vital Signs: Vital Signs Temperature 97.6 F 07/17/21 09:55 Pulse Rate 93 H 07/17/21 09:55 Respiratory Rate 18 07/17/21 09:55 Blood Pressure 153/94 H 07/17/21 09:55 Pulse Oximetry 95 07/17/21 09:55 Course Orders Ordered: Discontinued Medications Enoxaparin Sodium (Enoxaparin 60 Mg/0.6 Ml Syringe) 105 mg 1 mg/kg (105 mg) SUBCUT NOW ONE Stop: 07/17/21 13:31 Last Admin: 07/17/21 13:34 Dose: 105 mg Documented by: DAMON Furosemide (Furosemide 40 Mg/4 Ml Vial) 40 mg IV NOW ONE Stop: 07/17/21 11:57 Last Admin: 07/17/21 12:16 Dose: 40 mg Documented by: ERNESTO Sodium Chloride (Normal Saline 0.9%) 1,000 mls @ 125 mls/hr IV CONT YANY Last Infusion: 07/17/21 15:16 Dose: 0 mls/hr Documented by: Admin: 07/17/21 11:29 Dose: 125 mls/hr Documented by: ERNESTO Warfarin Sodium (Warfarin 5 Mg Tablet) 2.5 mg PO NOW ONE Stop: 07/17/21 14:36 Last Admin: 07/17/21 15:04 Dose: 2.5 mg Documented by: ERNESTO Reevaluation(s) Reevaluation #1: Patient continues to have no obvious significant respiratory distress. No tachypnea, use of accessory muscles, hypoxia or other abnormal vitals Vital Signs Vital signs: Vital Signs - 8 hr 07/17/21 09:55 07/17/21 10:02 07/17/21 10:30 Temperature 97.6 F Pulse Rate 93 H 85 62 Respiratory Rate 18 25 H 38 H Blood Pressure 153/94 H Pulse Oximetry 95 95 94 07/17/21 11:06 07/17/21 11:30 07/17/21 12:00 Temperature Pulse Rate 79 61 60 Respiratory Rate 29 H 37 H 32 H Blood Pressure Pulse Oximetry 95 94 94 07/17/21 14:43 Temperature Pulse Rate 92 H Respiratory Rate Blood Pressure 117/86 Pulse Oximetry 95 MDM - SOB/Dyspnea Lab Data Result diagrams: 07/17/21 10:14 07/17/21 10:45 Labs: Lab Results 07/17/21 07/17/21 07/17/21 Range/Units 10:14 10:20 10:45 WBC 7.1 (4.5-11.0) X10^3/uL RBC 5.01 (4.0-5.2) X10^6/uL Hgb 15.7 (12.0-16.0) g/dL Hct 48.1 H (36-46) % MCV 95.9 (80-100) fL MCH 31.4 (26-34) PG MCHC 32.7 (30-36) % RDW 14.8 (11.6-14.8) % Plt Count 225 (150-400) X10^3/uL Neut % (Auto) 62.1 (50-75) % Lymph % (Auto) 21.8 L (25-40) % Carver % (Auto) 9.5 (3-14) % Eos % (Auto) 5.8 H (2-4) % Baso % (Auto) 0.8 (0-2) % Neut # (Auto) 4400 (9837-5575) /uL Lymph # (Auto) 1500 (9906-9323) /uL Carver # (Auto) 700 (0-900) /uL Eos # (Auto) 400 (0-450) /uL Baso # (Auto) 100 (0-100) /uL PT (10.1-12.7) SECONDS INR (0.9-1.3) D-Dimer 391 H (<230) ng/mL Sodium (137-145) mmol/L Potassium (3.4-5.1) mmol/L Chloride (98-107) mmol/L Carbon Dioxide (22-32) mmol/L BUN (7-17) mg/dL Creatinine (0.52-1.04) mg/dL Estimated GFR (>60) mL/min BUN/Creatinine Ratio (6-22) Glucose (80-110) mg/dL Calcium (8.4-10.2) mg/dL Magnesium (1.6-2.3) mg/dL Total Bilirubin (0.2-1.3) mg/dL AST (14-36) IU/L ALT (<35) IU/L Alkaline Phosphatase (38-126) U/L Total Creatine Kinase (30-135) U/L CK-MB (CK-2) CK-MB (CK-2) Rel Index Troponin I (0.01-0.034) ng/mL NT-Pro-B Natriuret Pep (<450) pg/mL Total Protein (6.3-8.2) g/dL Albumin (3.5-5.0) g/dL Globulin (1.7-4.1) g/dL Albumin/Globulin Ratio (1.0-2.8) SARS-CoV-2 (PCR) Negative (Negative) 07/17/21 07/17/21 Range/Units 10:45 10:45 WBC (4.5-11.0) X10^3/uL RBC (4.0-5.2) X10^6/uL Hgb (12.0-16.0) g/dL Hct (36-46) % MCV (80-100) fL MCH (26-34) PG MCHC (30-36) % RDW (11.6-14.8) % Plt Count (150-400) X10^3/uL Neut % (Auto) (50-75) % Lymph % (Auto) (25-40) % Carver % (Auto) (3-14) % Eos % (Auto) (2-4) % Baso % (Auto) (0-2) % Neut # (Auto) (5319-5016) /uL Lymph # (Auto) (5623-0079) /uL Carver # (Auto) (0-900) /uL Eos # (Auto) (0-450) /uL Baso # (Auto) (0-100) /uL PT 11.5 (10.1-12.7) SECONDS INR 1.0 (0.9-1.3) D-Dimer (<230) ng/mL Sodium 139 (137-145) mmol/L Potassium 3.9 (3.4-5.1) mmol/L Chloride 105 (98-107) mmol/L Carbon Dioxide 33 H (22-32) mmol/L BUN 14 (7-17) mg/dL Creatinine 0.57 (0.52-1.04) mg/dL Estimated GFR > 60.0 (>60) mL/min BUN/Creatinine Ratio 24.6 H (6-22) Glucose 114 H (80-110) mg/dL Calcium 9.2 (8.4-10.2) mg/dL Magnesium 2.1 (1.6-2.3) mg/dL Total Bilirubin 0.7 (0.2-1.3) mg/dL AST 24 (14-36) IU/L ALT 20 (<35) IU/L Alkaline Phosphatase 74 (38-126) U/L Total Creatine Kinase 71 (30-135) U/L CK-MB (CK-2) TNP CK-MB (CK-2) Rel Index TNP Troponin I < 0.012 (0.01-0.034) ng/mL NT-Pro-B Natriuret Pep 67 (<450) pg/mL Total Protein 6.5 (6.3-8.2) g/dL Albumin 3.9 (3.5-5.0) g/dL Globulin 2.6 (1.7-4.1) g/dL Albumin/Globulin Ratio 1.5 (1.0-2.8) SARS-CoV-2 (PCR) (Negative) Imaging Data Chest x-ray: Radiologist's Impression: Mei Singh??76??F??1945 ? Allergy/Adv: No Known Drug Allergies (More??) Close Vascular Ultrasound (Signed) Mrak Murillo - 07/17/21 Chest X-Ray (Signed) Call,Oziel - 07/17/21 Chest X-Ray (Signed) Osman Mina - 06/18/21 Echocardiogram Ultrasound (Signed) Wilma Lee - 06/13/21 Chest X-Ray (Signed) Mark Murillo - 05/23/21 Chest X-Ray (Signed) Dean Sargent - 12/21/20 Chest X-Ray (Signed) Call,Oziel - 10/23/20 Chest X-Ray (Signed) Steven Edwards - 10/16/20 Chest X-Ray (Signed) Hanh Prajapati - 10/04/18 Chest X-Ray (Signed) Helen Zapien - 06/30/18 Chest X-Ray (Signed) Jc Barton - 04/14/18 Chest X-Ray (Signed) Nedra Laurent - 04/05/18 Radiology - Historical 10/23/16 Launch?[address] [address] XRay Report Signed Patient: Mei Singh MR#: [id number] : 1945 Acct:[id number] Age/Sex: 76 / F Date of Service: 07/17/21 Loc: ED Accession Number: [id number] ?? Procedure: XR chest 2V Ordering Provider: Mahesh Hilario D.O. PROCEDURE:? XR CHEST 2V ? INDICATIONS:? cough, short of breath ? TECHNIQUE:? 2 views of the chest were acquired.? ? COMPARISON:? [facility], CR, XR CHEST 2V, 10/23/2020, 8:51.? [facility], CR, XR CHEST 2V, 06/18/2021, 9:58.? [facility], CR, XR CHEST 1V, 05/23/2021, 11:19. ? FINDINGS:? ? Surgical changes and devices:? None.? ? Lungs and pleura:? Prominent pulmonary markings.? No consolidation is identified.? No significant pleural effusions or pneumothorax.? ? Mediastinum:? Mediastinal contours appear unchanged.? Heart size is prominent.? ? Bones and chest wall:? No suspicious bony abnormalities.? Soft tissues appear unremarkable.? ? IMPRESSION:? Prominent pulmonary markings bilaterally.? Suspect mild fluid overload/CHF or pulmonary vasculature engorgement.? ? Dictated by: Oziel Hawthorne M.D. on 07/17/2021 at 11:06 ? ? Approved by: Oziel Hawthorne M.D. on 07/17/2021 at 11:09 ? US - DVT: Radiologist's Impression: [place] [address] Ultrasound Report Signed Patient: Mei Singh MR#: [id number] : 1945 Acct:[id number] Age/Sex: 76 / F Date of Service: 07/17/21 Loc: ED Accession Number: [id number] ?? Procedure: US periph venous low extrem lt Ordering Provider: Mahesh Hilario D.O. PROCEDURE:? US PERIPH VENOUS LOW EXTREM LT ? INDICATIONS:? calf pain and swelling ? TECHNIQUE:? Real-time imaging, as well as color and pulse Doppler interrogation, were performed of the lower extremity deep veins from the inguinal ligament to the popliteal fossa.? ? COMPARISON:? None. ? FINDINGS:? The common femoral, femoral and popliteal veins are normally compr essible, and free of intraluminal thrombus.? Color and pulse Doppler demonstrate normal phasic intraluminal flow.? There is normal augmentation response to distal compression maneuver. ?Thrombosed superficial varicosities are present in the patient's palpable area of concern in the calf. ? IMPRESSION:? No sonographic evidence of DVT.? There are thrombosed superficial varicosities at the patient's area of palpable concern in the calf. ? ? Dictated by: Mark Murillo M.D. on 07/17/2021 at 10:36 ? ? Approved by: Mark Murillo M.D. on 07/17/2021 at 10:36 ? CT scan - chest: Radiologist's Impression: Chart Viewer Diagnostics Subcategory All Activity ??:?? All Time ??:?? All Subcategories Filter Laboratory Imaging Microbiology Pathology Blood Bank Tests Cardiovascular Other Specialty DATE TYPE STATUS REF RANGE/AUTHOR Hx Today 11:55 Chest CTA Signed Claire Pena Today 10:01 Vascular Ultrasound Signed Mark Murillo Today 09:59 Chest X-Ray Signed Oziel Hawthorne 06/18/21 10:04 Chest X-Ray Signed Osman Mina 06/13/21 07:59 Echocardiogram Ultrasound Signed Wilma Lee 05/23/21 11:15 Chest X-Ray Signed Mark Murillo 12/21/20 08:25 Chest X-Ray Signed Dean Sargent 10/23/20 08:49 Chest X-Ray Signed Oziel Hawthorne 10/16/20 10:42 Chest X-Ray Signed Steven Edwards 10/04/18 11:22 Chest X-Ray Signed Hanh Prajapati 06/30/18 00:00 Chest X-Ray Signed Helen Zapien 04/14/18 16:00 Chest X-Ray Signed Jc Batron 04/05/18 10:38 Chest X-Ray Signed Nedra Laurent 10/23/16 11:22 Radiology - Historical ? Mei Singh 76, F?1945 MRN#? [id number] REG ER,?Main ED??R05?? 160.02cm 103.873kg BMI: 40.6kg/m? Extremity Problem,Nontraumatic Acc#? [id number] Resus Status Not Ordered No Hx Avail Special Indicators No Data to Display Home Meds Not Confirmed Prescription Monitoring Program Total 6 MME/Day Unconfirmed MEDICATIONS (INSTRUCTIONS) LAST TAKEN Active ??albuterol sulfate 90 mcg/actuation aerosol inhaler ??2 [id number]#1 inh ??alendronate 70 mg tablet ??70 mgPOQWEEK#12 tab ??azelastine 137 mcg (0.1 %) nasal spray aerosol ??1 sprayINTRANASALBID#30 ml ??benzonatate 100 mg capsule ??100 mgPOBID-TIDPRN#14 cap ??CA PANTOTHENATE/FOLIC ACID/VIT (MULTIVITAMIN) ??1 tabPOQDAY#0 ??Calcium/Vitamin D3 ??See Rx Instructions.ROUTE.COMPLEX ??codeine 10 mg-guaifenesin 100 mg/5 mL oral liquid ??5 taCRW7ZOOL#118 ml 6 MME/Day ??fexofenadine ??180 mgPOQDAY#0 ??fluticasone 55 mcg-salmeterol 14 mcg/actuation breath activated powder ??1 inhINHALATIONBID#1 each ??hydrochlorothiazide ??12.5 mgPODAILY#20 tab ??hydrochlorothiazide 25 mg tablet ??25 mgPOQDAY#90 tab ??ipratropium 0.5 mg-albuterol 3 mg (2.5 mg base)/3 mL nebulization soln ??3 [id number]#90 ea ??lisinopril 10 mg-hydrochlorothiazide 12.5 mg tablet ??1 tabPODAILY#90 tab ??meclizine 12.5 mg tablet ??12.5 mgPOTIDPRN#14 tab ??montelukast 10 mg tablet ??10 mgPOQPM#90 tab ??mupirocin 2 % topical ointment ??1 applicTOPICALBID#30 g ??ofloxacin 0.3 % eye drops ??2 drpEYE-[id number] Days#10 ml ??silver sulfadiazine 1 % topical cream ??1 applicTOPICALBID#25 g ?Not Included in Conflicts Allergies No Known Drug Allergies Problems External Data Available ? ONSET (HFpEF) heart failure with preserved ejection fraction ~06/2021 Diastolic dysfunction 05/2021 Abnormal echocardiogram 05/2021 Atypical pneumonia COPD exacerbation Conjunctivitis Upper respiratory infection Sunburn, blistering Infection of nose Hematuria Sensation of pressure in bladder area Osteoporosis Osteoarthritis Otitis media Cough Gastroenteritis Varicose ulcer of left lower extremity Varicose veins of both lower extremities Acute sinusitis Acute exacerbation of chronic obstructive pulmonary disease (COPD) Peripheral edema Essential hypertension Chronic obstructive pulmonary disease 12/23/12 Hyperlipidemia Osteopenia after menopause Smoker unmotivated to quit Polyp of colon 04/02/11 Psoriasis Vital Signs Today 12:00 Pulse 60? Resp 32?H O2 Sat 94? Diagnostics Reports Mei Singh??76??F??1945 ? Allergy/Adv: No Known Drug Allergies (More??) Close Chest CTA (Signed) Claire Pena - 07/17/21 Vascular Ultrasound (Signed) Mark Murillo - 07/17/21 Chest X-Ray (Signed) Call,Oziel - 07/17/21 Chest X-Ray (Signed) Osman Mina - 06/18/21 Echocardiogram Ultrasound (Signed) Wilma Lee - 06/13/21 Chest X-Ray (Signed) Mrak Murillo - 05/23/21 Chest X-Ray (Signed) Dean Sargent - 12/21/20 Chest X-Ray (Signed) Call,Oziel - 10/23/20 Chest X-Ray (Signed) Steven Edwards - 10/16/20 Chest X-Ray (Signed) Hanh Prajapati - 10/04/18 Chest X-Ray (Signed) Helen Zapien - 06/30/18 Chest X-Ray (Signed) Jc Barton - 04/14/18 Chest X-Ray (Signed) Nedra Laurent - 04/05/18 Radiology - Historical 10/23/16 Launch?[place] [id number] CT Scan Report Signed Patient: Mei Singh MR#: [id number] : 1945 Acct:[id number] Age/Sex: 76 / F Date of Service: 07/17/21 Loc: ED Accession Number: [id number] ?? Procedure: CT angio chest PE protocol Ordering Provider: Mahesh Hilario D.O. PROCEDURE:? CT ANGIO CHEST PE PROTOCOL ? INDICATIONS:? SOB, cough, LE clot present ? TECHNIQUE:? After the administration of intravenous contrast, 2 mm thick sections acquired from the pulmonary apices to the posterior costophrenic angles.? 3-dimensional maximum intensity projection (MIP) coronal and sagittal reformats were then acquired through the thorax.? For radiation dose reduction, the following was used:? automated exposure control, adjustment of mA and/or kV according to patient size.? ? COMPARISON:? [facility], CR, XR CHEST 2V, 07/17/2021, 10:49.? [facility], US, US PERIPH VENOUS LOW EXTREM LT, 07/17/2021, 10:22. ? FINDINGS:? Image quality:? Excellent.? ? Pulmonary arteries:? Embolus involving right lower lobar, segmental and subsegmental pulmonary arteries noted.? Central pulmonary arteries are mildly enlarged suggesting pulmonary arterial hypertension. ? Lungs and pleura:? 8 millimeter subpleural nodule noted in the left lung base (series 5, image 174).? Atelectasis noted in the dependent portions of the lungs.? No pleural effusions or pneumothorax.? Central and peripheral airways are patent.? ? Mediastinum:? Heart is enlarged without pericardial effusion.? No CT evidence of right heart strain.? Atherosclerotic calcifications are noted in the aorta, great vessels and the coronary vasculature.No mediastinal or hilar adenopathy.? Thoracic aorta is normal in caliber and enhancement.? Esophagus is normal in caliber.? Small hiatal hernia noted. ? Bones and chest wall:? No suspicious bony lesions.? Ribs and thoracic spine appear intact throughout. Spine degenerative disc disease and facet arthropathy. Thyroid gland is within normal limits.? No axillary or supraclavicular adenopathy.? ? Abdomen:? Calcified gallstones noted in the visualized gallbladder.? Punctate calcifications compatible sequela prior granulomatous disease noted in the spleen.? Visualized upper abdominal solid organs otherwise appear normal in the early arterial phase of enhancement.? ? ? IMPRESSION:? ? 1. Abnormal study demonstrating moderate-sized right lower lobe pulmonary embolus.? ? 2. Cardiomegaly. ? 3. Atherosclerosis including the coronary vasculature. ? 4. No lung consolidation or pleural effusions. ? 5. Cholelithiasis. ? 6. 8 millimeter left lower lobe nodule.? Recommend follow-up CT scan in 6-12 months based on criteria outlined below. ? ? Fleischner Society criteria for SOLID lung nodule followup.? Nodule size (mm)Low-risk patientHigh-risk patient<6 (single or multiple)No routine followup.Optional CT at 12 months. 6-8 (single or multiple)CT at 6-12 months, then optional CT at 18-24 mo.CT at 6-12 months, then CT at 18-24 months.? >8 (single)CT at 3 months, PET-CT, or biopsy. Same as for low-risk pts.? >8 (multiple)CT at 3-6 months, then optional CT at 18-24 mo.CT at 3-6 months, then CT at 18-24 months.? Recommendations do not apply to lung cancer screening, patients with immunosuppression, or patients with known primary cancer. ? Dictated by: Claire Pena MD, PhD on 07/17/2021 at 12:32 ? ? Approved by: Claire Pena MD, PhD on 07/17/2021 at 12:41 ? MDM Narrative Medical decision making narrative: 68-year-old female with dry hacking cough for upwards of a month presents with very reassuring physical exam, vitals and labs. Imaging does demonstrate a right-sided pulmonary embolism. There is no indication of heart strain indicated by biochemical markers, imaging, or EKG. She certainly is not a candidate for transfer or mechanical retrieval and is not meeting any inpatient criteria. I had an extensive discussion with the patient about preferred treatment as an outpatient including the DOACs but patient was very concerned about the cost. I discussed with her that a concept of bridging to Coumadin with Lovenox as an outpatient provided we could arrange close follow-up. I placed a call to her PCP who was very willing to help but had no schedule availability until at least next week, this included her partners. Social work was contacted who was able to place multiple calls and arranged for lab draw tomorrow, home nursing to come on the weekend and coordination between home nursing and the PCP. Patient was very comfortable with this and thankful for the effort. I had extensive discussion with her about return precautions which she understands as evidenced by her ability to verbalize these back to me. Questions have been answered to her apparent satisfaction Critical Care Time Critical Care Time Critical Care Time: Yes Total Critical Care Time: 45 Attestation: The high probability of a clinically significant, sudden or life threatening deterioration of the [CV, Resp] system(s) required my full and direct attention, intervention and personal management. The aggregate critical care time was [45] minutes. This time is in addition to time spent performing reported procedures but includes the following: [x] Data Review and interpretation [x] Patient assessment and monitoring of vital signs [x] Documentation [x] Medication orders and management Discharge Plan Departure Patient Disposition: Home Clinical Impression: Pulmonary embolism Qualifiers: Pulmonary embolism type: unspecified Chronicity: acute Acute cor pulmonale presence: unspecified Qualified Code(s): I26.99 - Other pulmonary embolism without acute cor pulmonale Instructions: DI for Pulmonary Embolism Activity Restrictions/Additional Instructions: *You have been diagnosed with [acute pulmonary embolism, though your labs, EKG and physical exam are very reassuring and at this point there is no indication for hospitalization. *What to do: *Please continue to take your regular medications as directed. [ ] New medication prescriptions sent to your pharmacy: [ ] [x ] New medication written as a paper prescription [ ] No new medications given *As we discussed, the medication we will use to treat your clot is called Coumadin. It takes a few days to get to the proper level in your blood and we can tell this by measuring a lab called INR. You have a test ordered today already and Social Work has helped get home nursing set up. While we wait for the coumadin level to become therapeutic you will need to take shots of Lovenox which is another type of blood thinner. *Home nursing and your doctor will communicate with you when you can stop taking the Lovenox and just take the coumadin. *Any blood thinner increases your risk of bleeding, if you fall and injure herself, particularly if you injury your head you need to present to the emergency department for evaluation. Also, if you notice abnormal bleeding, such as nosebleeds, coughing blood, vomiting blood, blood in your stool or urine he will need to be seen and evaluated. Coumadin can be affected by other medications such as antibiotics as well as alterations in your diet. *Return to Emergency Department if you should have any new, worsening or concerning symptoms, such as [fever greater than 101 F, shaking chills, worsening pain, persistent vomiting or other bothersome symptoms] Prescriptions: New enoxaparin [Lovenox] 100 mg/mL syringe 100 mg SUBCUT Q12H Qty: 10 RF: 0 warfarin 2.5 mg tablet 2.5 mg PO DAILY Qty: 30 RF: 0 No Action mupirocin 2 % ointment 1 applic topical BID Qty: 30 RF: 0 silver sulfadiazine [Silvadene] 1 % cream 1 applic topical BID Qty: 25 RF: 1 Calcium/Vitamin D3 See Rx Instructions .ROUTE .COMPLEX RF: 0 meclizine 12.5 mg tablet 12.5 mg PO TID PRN (Reason: vertigo) Qty: 14 RF: 0 azelastine 137 mcg (0.1 %) aerosol,spray 1 spray intranasal BID Qty: 30 RF: 0 benzonatate 100 mg capsule 100 mg PO BID-TID PRN (Reason: cough) Qty: 14 RF: 0 CA PANTOTHENATE/FOLIC ACID/VIT (MULTIVITAMIN) 1 tab PO QDAY Qty: 0 RF: 0 fexofenadine 180 MG tablet 180 mg PO QDAY Qty: 0 RF: 0 montelukast 10 mg tablet 10 mg PO QPM Qty: 90 RF: 1 ipratropium-albuterol 0.5 mg-3 mg(2.5 mg base)/3 mL solution for nebulization 3 ml INHALATION Q6HP PRN (Reason: shortness of breath) Qty: 90 RF: 0 hydrochlorothiazide 25 mg tablet 25 mg PO QDAY Qty: 90 RF: 1 codeine-guaifenesin 10-100 mg/5 mL liquid 5 ml PO Q6H PRN (Reason: cough) Qty: 118 RF: 0 ofloxacin 0.3 % drops 2 drp EYE-BOTH QID 5 Days Qty: 10 RF: 1 alendronate 70 mg tablet 70 mg PO QWEEK Qty: 12 RF: 3 fluticasone propion-salmeterol 55-14 mcg/actuation aerosol powdr breath activated 1 inh INHALATION BID Qty: 1 RF: 2 albuterol sulfate [Ventolin HFA] 90 mcg/actuation HFA aerosol inhaler 2 puff inhalation Q4HP PRN (Reason: shortness of breath or wheezing) Qty: 1 RF: 3 lisinopril-hydrochlorothiazide 10-12.5 mg tablet 1 tab PO DAILY Qty: 90 RF: 1 hydrochlorothiazide 12.5 mg tablet 12.5 mg PO DAILY Qty: 20 RF: 0 Referrals: Rubin Acosta ARNP [Primary Care Provider] -
--- NOTE | 2021-07-17 10:01 | DI.US.S_ITS ---
PROCEDURE: US PERIPH VENOUS LOW EXTREM LT INDICATIONS: calf pain and swelling TECHNIQUE: Real-time imaging, as well as color and pulse Doppler interrogation, were performed of the lower extremity deep veins from the inguinal ligament to the popliteal fossa. COMPARISON: None. FINDINGS: The common femoral, femoral and popliteal veins are normally compressible, and free of intraluminal thrombus. Color and pulse Doppler demonstrate normal phasic intraluminal flow. There is normal augmentation response to distal compression maneuver. Thrombosed superficial varicosities are present in the patient's palpable area of concern in the calf. IMPRESSION: No sonographic evidence of DVT. There are thrombosed superficial varicosities at the patient's area of palpable concern in the calf. Dictated by: Mark Murillo M.D. on 07/17/2021 at 10:36 Approved by: Mark Murillo M.D. on 07/17/2021 at 10:36
[2021-07-17 10:26] LABS: Add Manual Diff / Slide Review NO; Basophils Absolute Auto 100 /uL (0-100); Basophils Percent Auto 0.8 % (0-2); Eosinophils Absolute Auto 400 /uL (0-450); Eosinophils Percent Auto 5.8 % (2-4); Hematocrit 48.1 % (36-46); Hemoglobin 15.7 g/dL (12.0-16.0); Lymphocytes Absolute Auto 1500 /uL (1100-4500); Lymphocytes Percent Auto 21.8 % (25-40); Mean Corpuscular HGB Conc 32.7 % (30-36); Mean Corpuscular Hemoglobin 31.4 PG (26-34); Mean Corpuscular Volume 95.9 fL (80-100); Monocytes Absolute Auto 700 /uL (0-900); Monocytes Percent Auto 9.5 % (3-14); Neutrophils Absolute Auto 4400 /uL (1500-7000); Neutrophils Percent Auto 62.1 % (50-75); Platelet Count 225 X10^3/uL (150-400); Red Blood Cell Count 5.01 X10^6/uL (4.0-5.2); Red Cell Distribution Width 14.8 % (11.6-14.8); White Blood Cell Count 7.1 X10^3/uL (4.5-11.0)
[2021-07-17 11:03] LABS: D Dimer 391 ng/mL (<230)
[2021-07-17 11:04] LABS: Alanine Aminotransferase 20 IU/L (<35); Albumin 3.9 g/dL (3.5-5.0); Albumin Globulin Ratio 1.5 (1.0-2.8); Alkaline Phosphatase 74 U/L (38-126); Aspartate Aminotransferase 24 IU/L (14-36); BUN Creatinine Ratio 24.6 (6-22); Bilirubin Total 0.7 mg/dL (0.2-1.3); Blood Urea Nitrogen 14 mg/dL (7-17); Calcium 9.2 mg/dL (8.4-10.2); Carbon Dioxide 33 mmol/L (22-32); Chloride 105 mmol/L (98-107); Creatine Kinase 71 U/L (30-135); Estimated Glomerular Filt Rate > 60.0 mL/min (>60); Globulin 2.6 g/dL (1.7-4.1); Glucose 114 mg/dL (80-110); HEMOLYSIS < 15 (0-50); Magnesium 2.1 mg/dL (1.6-2.3); Potassium 3.9 mmol/L (3.4-5.1); Sodium 139 mmol/L (137-145); Total Protein 6.5 g/dL (6.3-8.2)
[2021-07-17 11:16] LABS: NT-proBNP (BNP-Adult 18+) 67 pg/mL (<450); Troponin I < 0.012 ng/mL (0.01-0.034)
[2021-07-17] MEDS: SODIUM CHLORIDE 0.9% 1,000 ML 125 ML IV (11:29)
[2021-07-17 11:46] LABS: COVID19 - ADMIT (NP swab/PCR) Negative (Negative)
--- NOTE | 2021-07-17 11:55 | DI.CT.S_ITS ---
PROCEDURE: CT ANGIO CHEST PE PROTOCOL INDICATIONS: SOB, cough, LE clot present TECHNIQUE: After the administration of intravenous contrast, 2 mm thick sections acquired from the pulmonary apices to the posterior costophrenic angles. 3-dimensional maximum intensity projection (MIP) coronal and sagittal reformats were then acquired through the thorax. For radiation dose reduction, the following was used: automated exposure control, adjustment of mA and/or kV according to patient size. COMPARISON: [facility], CR, XR CHEST 2V, 07/17/2021, 10:49. [facility], US, US PERIPH VENOUS LOW EXTREM LT, 07/17/2021, 10:22. FINDINGS: Image quality: Excellent. Pulmonary arteries: Embolus involving right lower lobar, segmental and subsegmental pulmonary arteries noted. Central pulmonary arteries are mildly enlarged suggesting pulmonary arterial hypertension. Lungs and pleura: 8 millimeter subpleural nodule noted in the left lung base (series 5, image 174). Atelectasis noted in the dependent portions of the lungs. No pleural effusions or pneumothorax. Central and peripheral airways are patent. Mediastinum: Heart is enlarged without pericardial effusion. No CT evidence of right heart strain. Atherosclerotic calcifications are noted in the aorta, great vessels and the coronary vasculature.No mediastinal or hilar adenopathy. Thoracic aorta is normal in caliber and enhancement. Esophagus is normal in caliber. Small hiatal hernia noted. Bones and chest wall: No suspicious bony lesions. Ribs and thoracic spine appear intact throughout. Spine degenerative disc disease and facet arthropathy. Thyroid gland is within normal limits. No axillary or supraclavicular adenopathy. Abdomen: Calcified gallstones noted in the visualized gallbladder. Punctate calcifications compatible sequela prior granulomatous disease noted in the spleen. Visualized upper abdominal solid organs otherwise appear normal in the early arterial phase of enhancement. IMPRESSION: 1. Abnormal study demonstrating moderate-sized right lower lobe pulmonary embolus. 2. Cardiomegaly. 3. Atherosclerosis including the coronary vasculature. 4. No lung consolidation or pleural effusions. 5. Cholelithiasis. 6. 8 millimeter left lower lobe nodule. Recommend follow-up CT scan in 6-12 months based on criteria outlined below. Fleischner Society criteria for SOLID lung nodule followup. Nodule size (mm)Low-risk patientHigh-risk patient<6 (single or multiple)No routine followup.Optional CT at 12 months. 6-8 (single or multiple)CT at 6-12 months, then optional CT at 18-24 mo.CT at 6-12 months, then CT at 18-24 months. >8 (single)CT at 3 months, PET-CT, or biopsy. Same as for low-risk pts. >8 (multiple)CT at 3-6 months, then optional CT at 18-24 mo.CT at 3-6 months, then CT at 18-24 months. Recommendations do not apply to lung cancer screening, patients with immunosuppression, or patients with known primary cancer. Dictated by: Claire Pena MD, PhD on 07/17/2021 at 12:32 Approved by: Claire Pena MD, PhD on 07/17/2021 at 12:41
[2021-07-17] MEDS: FUROSEMIDE 40 MG/4 ML VIAL IV (12:16)
[2021-07-17] MEDS: ENOXAPARIN 60 MG/0.6 ML SYRINGE 105 MG SUBCUT (13:34)
[2021-07-17 14:54] LABS: Prothrombin Time 11.5 SECONDS (10.1-12.7)
--- NOTE | 2021-07-17 14:58 | CM.SWNOTE ---
AIRBRUSH ARTIST Note AIRBRUSH ARTIST receives consult and enters room to meet with patient. [place] AIRBRUSH ARTIST consults with ED provider regarding patient and schedules ER f/u appts for patient and suggests HH referral for RN services. Patient has dx of Pulmonary Embolism and is need of regular medication and close f/u. Patient is 76 y/o female who presents to the ED with concern for possible blood clot in leg. Patient is A/Ox4, reports that she wants to go home. Patient endorses she lives at home with son on the property and family near by. Patient endorses she is indpendent at home, in need of no other services, drives and uses a can around the house. AIRBRUSH ARTIST discusses upcoming A ER f/u appts and HH for INR checks. Patient indicates agreement and understanding. AIRBRUSH ARTIST submits referral to [facility] for RN regarding INR checkups as needed at least once a week, with a start date of Thursday07/20/21 Patient has ER f/u appt with [facility] procedure nurse tomorrow 07/18/21 at 9:15 AM and f/u with PCP BLAKE Johns on 07/23/21. Patient indicates agreement and understanding. Plan: Patient to d/c to home with ER f/u tomorrow 07/18/21 and 07/23/21 at [facility] and Ivon[facility] PAIG[facility] f/u ongoing RN services starting on 07/20/21. DOMINICK Faria
[2021-07-17] MEDS: WARFARIN 5 MG TABLET 2.5 MG PO (15:04)
== END 2021-07-17 15:18 | disposition home or self-care (01) ==
PROVIDERS: Emergency Provider Emergency Medicine; PCP Nurse Practitioner Family
DX: I26.99 Other pulmonary embolism without acute cor pulmonale (principal); M79.605 Pain in left leg; R05 Cough; Z20.822 Contact with and (suspected) exposure to COVID-19; J44.1 Chronic obstructive pulmonary disease with (acute) exacerbation
CPT/HCPCS: 36415; 71046; 71275; 80053; 82550; 83735; 83880; 84484; 85025; 85379; 85610; 87635; 93971; 96361; 96372; 96374; 99284; C9803; J1650; J1940

== ENCOUNTER → 2021-08-12 08:15 | Outpatient (CLI) | payer OTHER, SELFPAY ==
[2021-08-12 14:47] LABS: COVID19 -Nasal RAPID Negative (Negative)
== END ==
PROVIDERS: PCP Nurse Practitioner Family; Visit Provider Nurse Practitioner Family
DX: Z20.822 Contact with and (suspected) exposure to COVID-19 (principal); Z01.812 Encounter for preprocedural laboratory examination
CPT/HCPCS: 87635; C9803

== ENCOUNTER → 2021-08-13 09:23 | Outpatient (CLI) | payer OTHER, SELFPAY ==
--- NOTE | 2021-08-14 20:33 | DI.NM.S_ITS ---
DATE OF SERVICE: 08/13/2021 PROCEDURE PERFORMED: Pharmacological perfusion study. INDICATIONS: Shortness of breath with underlying hypertension ,hyperlipidemia, heart failure with preserved ejection fraction. CARDIAC STRESS: The patient underwent IV Lexiscan perfusion study under the supervision of an attending staff. She received IV Lexiscan, as per protocol. Baseline rhythm was sinus with right bundle branch block, poor R-wave progression, as well as left axis, with possibility of anterior wall IL, inferior wall IL or left anterior fascicular block. However, the patient has large breast shadow, which may cause artifact, as well. During stress, no convincing ischemic changes or new arrhythmias seen. No chest pain. There were occasional PVCs. The patient remained hemodynamically stable. Baseline blood pressure 118/70. RAW DATA: Significant breast shadow seen. GATED STUDY: Resting LV ejection fraction 70 percent and stress LV ejection fraction 77 percent without any obvious wall motion abnormalities. Resting end- diastolic volume 89 mL. TID ratio 0.69, which is within normal limits. Lung/heart ratio 0.73, which is within normal limits. MYOCARDIAL PERFUSION SCAN: Stress supine, resting supine images were compared to each other. Please note, there are no prone images. Stress supine and resting supine images revealed predominantly fixed moderate size, moderate to severely decreased perfusion of distal anterior wall and anteroapex, as well as a small to moderate size, mild to moderately decreased perfusion of base to mid anterolateral wall. There is no reversible ischemia. CONCLUSION: There is a predominantly fixed distal anterior wall and anteroapical defect, as well as base to mid anterolateral wall defect, without any reversible ischemia. One would like to keep possibility of old myocardial infarction, however the patient had exercise perfusion study 10/23/2009. At that time also she had similar perfusion defect, which resolved during prone images, likely due to breast attenuation artifact. On this study, no prone images, however, large breast shadow was seen. Hence, most likely we are dealing with breast tissue attenuation artifact. On gated study, left ventricular function is preserved. No wall motion abnormalities especially at the apex or anterolateral wall or anterior wall. No transient ischemic dilatation. As far as perfusion scan is concerned, this is a low-risk myocardial perfusion scan. Correlate clinically. Mei Singh - ASHA/jessica/roxana doc#: [id number]/job#: [id number] dd: 08/14/2021 17:13:00 dt: 08/14/2021 20:17:00 DICTATING MD/COPIES TO: Mio Lau MD COPIES MNE: JOHN;
== END ==
PROVIDERS: PCP Nurse Practitioner Family; Referring Provider Internal Medicine Cardiovascular Disease; Visit Provider Internal Medicine Cardiovascular Disease
DX: R06.00 Dyspnea, unspecified (principal); I50.32 Chronic diastolic (congestive) heart failure; R06.02 Shortness of breath; I10 Essential (primary) hypertension; E78.5 Hyperlipidemia, unspecified
CPT/HCPCS: 78452; 93017; A9502; J2785

== ENCOUNTER → 2021-08-15 08:04 | Outpatient (CLI) | payer OTHER, SELFPAY ==
[2021-08-15 09:28] LABS: INR 2.3 (0.9-1.3); Prothrombin Time 26.4 SECONDS (10.1-12.7)
== END ==
PROVIDERS: PCP Nurse Practitioner Family; Referring Provider Nurse Practitioner Family; Visit Provider Nurse Practitioner Family
DX: Z79.01 Long term (current) use of anticoagulants (principal)
CPT/HCPCS: 36415; 85610

== ENCOUNTER → 2021-08-24 15:03 | Outpatient (CLI) | payer OTHER, SELFPAY ==
[2021-08-24 15:48] LABS: COVID19 -Nasal RAPID Negative (Negative)
== END ==
PROVIDERS: PCP Nurse Practitioner Family; Visit Provider Physician Assistant
DX: Z20.822 Contact with and (suspected) exposure to COVID-19 (principal)
CPT/HCPCS: 87635

== ENCOUNTER → 2021-09-30 07:36 | Outpatient (CLI) | payer OTHER, SELFPAY ==
[2021-09-30 10:11] LABS: Hematocrit 44.5 % (36-46); Hemoglobin 14.9 g/dL (12.0-16.0); Mean Corpuscular HGB Conc 33.4 % (30-36); Mean Corpuscular Hemoglobin 31.8 PG (26-34); Mean Corpuscular Volume 95.3 fL (80-100); Platelet Count 217 X10^3/uL (150-400); Red Blood Cell Count 4.67 X10^6/uL (4.0-5.2); Red Cell Distribution Width 14.6 % (11.6-14.8); White Blood Cell Count 5.1 X10^3/uL (4.5-11.0)
[2021-09-30 10:38] LABS: Alanine Aminotransferase 20 IU/L (<35); Albumin Globulin Ratio 1.3 (1.0-2.8); Alkaline Phosphatase 72 U/L (38-126); Aspartate Aminotransferase 24 IU/L (14-36); BUN Creatinine Ratio 32.2 (6-22); Blood Urea Nitrogen 19 mg/dL (7-17); Carbon Dioxide 32 mmol/L (22-32); Chloride 107 mmol/L (98-107); Cholesterol 152 mg/dL (140-199); Estimated Glomerular Filt Rate > 60.0 mL/min (>60); Globulin 3.1 g/dL (1.7-4.1); Glucose 97 mg/dL (80-110); HDL Cholesterol 55 mg/dL (40-60); HEMOLYSIS < 15 (0-50); LDL Cholesterol Calculated 83 mg/dL (<100); Potassium 3.9 mmol/L (3.4-5.1); Sodium 140 mmol/L (137-145); Total Protein 7.1 g/dL (6.3-8.2); Triglycerides 72 mg/dL (35-150)
[2021-09-30 10:51] LABS: Vitamin D 25 Hydroxy (D3) 44.1 ng/mL (30.0-100.0)
== END ==
PROVIDERS: PCP Nurse Practitioner Family; Referring Provider Nurse Practitioner Family; Visit Provider Nurse Practitioner Family
DX: E78.5 Hyperlipidemia, unspecified (principal); M81.0 Age-related osteoporosis without current pathological fracture; Z00.00 Encounter for general adult medical examination without abnormal findings; F17.200 Nicotine dependence, unspecified, uncomplicated; I10 Essential (primary) hypertension; J41.8 Mixed simple and mucopurulent chronic bronchitis; Z13.6 Encounter for screening for cardiovascular disorders
CPT/HCPCS: 36415; 80053; 80061; 82306; 85027

== ENCOUNTER 2021-12-18 11:01 | Emergency (ER) | payer OTHER, SELFPAY ==
[2021-12-18] VITALS (25 sets, daily range): BP systolic 129–174; BP diastolic 60–131; PULSE 80–100; RESP 13–44; TEMP 36.8–37.1; O2SAT 91–98; BMI 41.6
--- NOTE | 2021-12-18 11:18 | ED_ITS ---
HPI - Abdominal Pain General Chief Complaint: Chest Pain Stated Complaint: Diarrhea, vomiting, sharp pain in chest/back Time Seen by Provider: 12/18/21 11:17 History of Present Illness HPI narrative: Patient is a 76-year-old female with history of pulmonary embolism in June of 2021 currently on Coumadin, COPD, CHF, presenting today with sharp pain in the epigastric area that rate radiates through to her back. She has vomited 2 times she had diarrhea 3 times. None of it bloody. She denies any worsening shortness of breath. She has pain in her stomach comes and goes without provocation or palliation. Never had anything like this in the past. Yesterday she says she was feeling fine. She denies any fever or chills. Related Data Home Medications Medication Instructions Recorded Confirmed CA PANTOTHENATE/FOLIC ACID/VIT 1 tab PO QDAY #0 09/10/12 11/19/21 (MULTIVITAMIN) fexofenadine 180 mg tablet 180 mg PO QDAY #0 11/26/17 11/19/21 Calcium/Vitamin D3 See Rx Instructions .ROUTE .COMPLEX 08/09/18 11/19/21 furosemide 20 mg tablet 20 mg PO DAILY 07/23/21 11/19/21 losartan 25 mg tablet 25 mg PO DAILY 07/23/21 11/19/21 rosuvastatin 10 mg tablet 10 mg PO DAILY 07/23/21 11/19/21 warfarin 5 mg tablet 7.5 mg PO DAILY tab 08/26/21 12/12/21 Previous Rx's Medication Instructions Recorded albuterol sulfate 90 mcg/actuation 2 puff INHALATION Q4HP PRN #1 inh 07/19/20 aerosol inhaler (Ventolin HFA) meclizine 12.5 mg tablet 12.5 mg PO TID PRN #14 tab 08/01/20 alendronate 70 mg tablet 70 mg PO QWEEK #12 tab 09/19/20 ofloxacin 0.3 % eye drops 2 drp EYE-BOTH QID 5 Days #10 ml 09/19/20 mupirocin 2 % topical ointment 1 applic TOPICAL BID #30 g 03/14/21 ipratropium 0.5 mg-albuterol 3 mg 3 ml INHALATION Q6HP PRN #90 ea 03/29/21 (2.5 mg base)/3 mL nebulization soln silver sulfadiazine 1 % topical 1 applic TOPICAL BID #25 g 04/23/21 cream (Silvadene) montelukast 10 mg tablet 10 mg PO QPM #90 tab 07/25/21 fluticasone 55 mcg-salmeterol 14 1 inh INHALATION BID #1 each 10/28/21 mcg/actuation breath activated powder doxycycline hyclate 100 mg capsule 100 mg PO BID #20 cap 12/18/21 hydrocodone 5 mg-acetaminophen 325 1 tab PO Q6H PRN #10 tab 12/18/21 mg tablet prednisone 20 mg tablet 20 mg PO DAILY #5 tab 12/18/21 Allergies Allergy/AdvReac Type Severity Reaction Status Date / Time No Known Drug Allergies Allergy Verified 12/18/21 11:19 Review of Systems Review of Systems Narrative: GENERAL: Denies chills, fatigue, malaise, fever, sweats, travel HEENT: Denies sinus pain, ear pain, sore throat, difficulty swallowing, neck pain RESPIRATORY: Denies dyspnea, cough, wheezing, hemoptysis, sputum. CARDIOVASCULAR: See HPI GASTROINTESTINAL: See HPI : Denies dysuria, frequency, incontinence, hematuria, urinary retention, flank pain. MUSCULOSKELETAL: Denies weakness, joint pain, or bony pain SKIN: No rash, no erythema, no pruritus NEUROLOGIC: Denies weakness, dizziness, headache, numbness, change in speech, confusion PSYCHIATRIC: No concerning psychosocial issues. 12 point review of systems is negative except for those stated above and HPI Patient History Medical History (Updated 12/18/21 @ 17:06 by Desiree Angulo DO) (HFpEF) heart failure with preserved ejection fraction (~06/2021) Abnormal echocardiogram (05/2021) Allergies Asthma Chicken pox Chronic obstructive pulmonary disease (12/23/12) Diastolic dysfunction (05/2021) Hematuria History of pulmonary embolism (06/2021) Hyperlipidemia Incidental lung nodule, greater than or equal to 8mm (07/2021) Osteoarthritis Osteopenia after menopause Osteoporosis Polyp of colon (04/02/11) Psoriasis Sensation of pressure in bladder area Smoker unmotivated to quit Warfarin anticoagulation Surgical History History of colonoscopy with polypectomy (05/04/09) History of ventral hernia repair (08/10/07) Family History Father Diabetes mellitus History of heart disease Hypertension Stroke Mother History of heart disease Hypertension Grandfather History of heart disease Grandmother History of heart disease Social History Smoking Status: Current every day smoker (~<1/2 PPD ) Tobacco: How many years used: 58 quit status: considering quitting second hand exposure: No alcohol intake: never substance use type: does not use Smoking Status: Current every day smoker (~<1/2 PPD ) tobacco type: cigarettes alcohol intake frequency: 0-2 drinks per day Substance Use Type: does not use Exam Initial Vital Signs Initial Vital Signs: Vital Signs Temperature 98.8 F 12/18/21 11:10 Pulse Rate 100 H 12/18/21 11:10 Respiratory Rate 24 12/18/21 11:10 Blood Pressure 146/63 H 12/18/21 11:10 Pulse Oximetry 93 12/18/21 11:10 GENERAL: Alert 76-year-old female in no acute distress. HEENT: Head atraumatic,EOMI, pupils reactive, face symmetric, moist mucous membranes CARDIOVASCULAR: Regular rate and rhythm without murmurs, rubs or gallops. RESPIRATORY: Breath sounds equal bilaterally, no wheezes rales or rhonchi. ABDOMEN: Soft, tender with epigastric pain minimal right upper quadrant pain no guarding no rebound : No CVA tenderness EXTREMITIES: Normal range of motion, no clubbing or edema. Neurovascularly intact NEUROLOGICAL: Alert and oriented x4.Normal gait and speech. SKIN: Warm, dry, no laceration, no petechiae, no rashes or lesions. Course Orders Ordered: ED Orders 12/18/21 11:19 EKG-12 Lead Stat 12/18/21 11:24 BNP [NT-proBNP (BNP-Adult 18+)] Stat Complete Blood Count AUTO DIFF Stat Comprehensive Metabolic Panel Stat Lipase Stat PT [Prothrombin Time INR] Stat PTT [Partial Thromboplastin Time] Stat Troponin & CK Cardiac Panel Stat 12/18/21 11:30 Chest [XR chest 1V] Stat 12/18/21 11:54 US abdomen limited Stat 12/18/21 12:30 Urine Microscopic Stat 12/18/21 12:53 CT angio chest abdomen pelvis Stat 12/18/21 13:08 Urine Culture Stat 12/18/21 15:05 COVID19 -Nasal swab/Pre-Proc Stat Discontinued Medications Albuterol/Ipratropium (Albuterol/Ipratropium 3 Ml Ampul) 3 ml INH NOW ONE Stop: 12/18/21 15:01 Last Admin: 12/18/21 15:38 Dose: 3 ml Documented by: NINI Sodium Chloride (Normal Saline 0.9%) 1,000 mls @ 1,000 mls/hr IV CONT YANY Last Infusion: 12/18/21 13:54 Dose: 0 mls/hr Documented by: Admin: 12/18/21 11:35 Dose: 1,000 mls/hr Documented by: NACHO Methylprednisolone (Methylprednisolone 125 Mg/2 Ml Vial) 125 mg IV NOW ONE Stop: 12/18/21 17:03 Last Admin: 12/18/21 17:23 Dose: 125 mg Documented by: KEVIN Morphine Sulfate (Morphine 2 Mg/Ml Inj) 2 mg IV NOW ONE Stop: 12/18/21 14:30 Last Admin: 12/18/21 14:43 Dose: 2 mg Documented by: NACHO Ondansetron HCl (Ondansetron 4 Mg/2 Ml Inj) 4 mg IV NOW ONE Stop: 12/18/21 14:30 Last Admin: 12/18/21 14:42 Dose: 4 mg Documented by: NACHO Vital Signs Vital signs: Vital Signs - 8 hr 12/18/21 11:10 12/18/21 11:13 12/18/21 11:16 Temperature 98.8 F Pulse Rate 100 H 97 H 88 Respiratory Rate 24 20 28 H Blood Pressure 146/63 H 129/60 Pulse Oximetry 93 94 91 12/18/21 11:30 12/18/21 11:47 12/18/21 11:54 Temperature Pulse Rate 85 80 83 Respiratory Rate 35 H 13 24 Blood Pressure 163/74 H 155/131 H 158/102 H Pulse Oximetry 93 94 93 12/18/21 11:57 12/18/21 12:00 12/18/21 12:30 Temperature 98.2 F Pulse Rate 84 83 80 Respiratory Rate 26 H 24 23 Blood Pressure 129/60 154/74 H Pulse Oximetry 95 93 94 12/18/21 13:00 12/18/21 13:01 12/18/21 13:30 Temperature Pulse Rate 84 83 86 Respiratory Rate 34 H 30 H 30 H Blood Pressure 158/74 H 162/74 H Pulse Oximetry 93 93 93 12/18/21 14:00 12/18/21 14:13 12/18/21 14:30 Temperature Pulse Rate 86 93 H 87 Respiratory Rate 31 H 44 H 39 H Blood Pressure 174/71 H 155/69 H 169/79 H Pulse Oximetry 95 94 92 12/18/21 15:00 12/18/21 15:30 12/18/21 15:38 Temperature Pulse Rate 92 H 87 88 Respiratory Rate 33 H 30 H 16 Blood Pressure 155/73 H Pulse Oximetry 95 95 94 12/18/21 16:00 12/18/21 16:30 12/18/21 17:00 Temperature Pulse Rate 89 88 95 H Respiratory Rate 30 H 31 H Blood Pressure 138/65 Pulse Oximetry 93 98 92 12/18/21 17:30 12/18/21 17:35 12/18/21 17:37 Temperature Pulse Rate 92 H 91 H 92 H Respiratory Rate 28 H 34 H 25 H Blood Pressure 131/70 Pulse Oximetry 92 92 94 12/18/21 17:48 Temperature Pulse Rate Respiratory Rate Blood Pressure 131/70 Pulse Oximetry MDM - Abdominal Pain Lab Data Result diagrams: 12/18/21 11:24 12/18/21 11:24 Labs: Lab Results 12/18/21 12/18/21 12/18/21 Range/Units 11:24 11:24 11:24 WBC 10.1 (4.5-11.0) X10^3/uL RBC 5.01 (4.0-5.2) X10^6/uL Hgb 15.8 (12.0-16.0) g/dL Hct 47.0 H (36-46) % MCV 93.7 (80-100) fL MCH 31.6 (26-34) PG MCHC 33.7 (30-36) % RDW 14.5 (11.6-14.8) % Plt Count 222 (150-400) X10^3/uL Neut % (Auto) 88.0 H (50-75) % Lymph % (Auto) 6.2 L (25-40) % Catron % (Auto) 5.0 (3-14) % Eos % (Auto) 0.4 L (2-4) % Baso % (Auto) 0.4 (0-2) % Neut # (Auto) 8900 H (6008-2741) /uL Lymph # (Auto) 600 L (2682-2868) /uL Catron # (Auto) 500 (0-900) /uL Eos # (Auto) 0 (0-450) /uL Baso # (Auto) 0 (0-100) /uL PT 31.9 H (10.1-12.7) SECONDS INR 2.7 H (0.9-1.3) APTT 46 H (26.4-36.2) SECONDS Sodium 138 (137-145) mmol/L Potassium 4.2 (3.4-5.1) mmol/L Chloride 104 (98-107) mmol/L Carbon Dioxide 30 (22-32) mmol/L BUN 22 H (7-17) mg/dL Creatinine 0.57 (0.52-1.04) mg/dL Estimated GFR > 60.0 (>60) mL/min BUN/Creatinine Ratio 38.6 H (6-22) Glucose 126 H (80-110) mg/dL Calcium 9.2 (8.4-10.2) mg/dL Total Bilirubin 1.0 (0.2-1.3) mg/dL AST 27 (14-36) IU/L ALT 21 (<35) IU/L Alkaline Phosphatase 83 (38-126) U/L Total Creatine Kinase 78 (30-135) U/L CK-MB (CK-2) TNP CK-MB (CK-2) Rel Index TNP Troponin I 0.023 (0.01-0.034) ng/mL NT-Pro-B Natriuret Pep (<450) pg/mL Total Protein 7.8 (6.3-8.2) g/dL Albumin 4.4 (3.5-5.0) g/dL Globulin 3.4 (1.7-4.1) g/dL Albumin/Globulin Ratio 1.3 (1.0-2.8) Lipase 31 (23-300) U/L Urine RBC (0-5/HPF) Urine WBC (0-5/HPF) Urine Bacteria (None) Ur Culture Indicated? SARS-CoV-2 (PCR) (Negative) 12/18/21 12/18/21 12/18/21 Range/Units 11:24 12:30 15:05 WBC (4.5-11.0) X10^3/uL RBC (4.0-5.2) X10^6/uL Hgb (12.0-16.0) g/dL Hct (36-46) % MCV (80-100) fL MCH (26-34) PG MCHC (30-36) % RDW (11.6-14.8) % Plt Count (150-400) X10^3/uL Neut % (Auto) (50-75) % Lymph % (Auto) (25-40) % Catron % (Auto) (3-14) % Eos % (Auto) (2-4) % Baso % (Auto) (0-2) % Neut # (Auto) (2634-0955) /uL Lymph # (Auto) (6642-5251) /uL Catron # (Auto) (0-900) /uL Eos # (Auto) (0-450) /uL Baso # (Auto) (0-100) /uL PT (10.1-12.7) SECONDS INR (0.9-1.3) APTT (26.4-36.2) SECONDS Sodium (137-145) mmol/L Potassium (3.4-5.1) mmol/L Chloride (98-107) mmol/L Carbon Dioxide (22-32) mmol/L BUN (7-17) mg/dL Creatinine (0.52-1.04) mg/dL Estimated GFR (>60) mL/min BUN/Creatinine Ratio (6-22) Glucose (80-110) mg/dL Calcium (8.4-10.2) mg/dL Total Bilirubin (0.2-1.3) mg/dL AST (14-36) IU/L ALT (<35) IU/L Alkaline Phosphatase (38-126) U/L Total Creatine Kinase (30-135) U/L CK-MB (CK-2) CK-MB (CK-2) Rel Index Troponin I (0.01-0.034) ng/mL NT-Pro-B Natriuret Pep 98 (<450) pg/mL Total Protein (6.3-8.2) g/dL Albumin (3.5-5.0) g/dL Globulin (1.7-4.1) g/dL Albumin/Globulin Ratio (1.0-2.8) Lipase (23-300) U/L Urine RBC 5-10/hpf H (0-5/HPF) Urine WBC None seen (0-5/HPF) Urine Bacteria None seen (None) Ur Culture Indicated? Cult not indicated SARS-CoV-2 (PCR) Negative (Negative) Point of care testing: Urine Dip Bedside Urine Glucose Negative Bedside Urine Bilirubin - Negative Bedside Urine Ketone + 15 Urine Specific [place] 1.015 Bedside Urine Occult Blood + Bedside Urine pH 6.5 Bedside Urine Protein +/- 15 Bedside Urine Urobilinogen - Negative Bedside Urine Nitrite - Negative Bedside Urine Leukocytes - Negative Esterase Imaging Data CT scan - chest: Radiologist's Impression: PROCEDURE:? CT ANGIO CHEST ABDOMEN PELVIS ? INDICATIONS:? epigastric pain chest pain hx pe ? TECHNIQUE:? Precontrast 5 mm thick sections acquired from the lung apices to the iliac crests.? After the administration of intravenous contrast, 2.5 mm thick sections again acquired from the lung apices to the iliac crests.? Maximum intensity projection (MIP) oblique sagittal and coronal reformats were then acquired.? For radiation dose reduction, the following was used:? automated exposure control.? ? COMPARISON:? [facility], CR, XR CHEST 1V, 12/18/2021, 11:31.? [facility], CT, CT ANGIO CHEST PE PROTOCOL, 07/17/2021, 12:23. ? FINDINGS:? Image quality:? Excellent.? ? AORTA:? Normal in caliber.? No dissection.? Mild atherosclerotic calcifications.? Great vessels are patent and normal in caliber. ? CHEST:? Lungs and pleura:? No acute airspace opacities.? No pleural effusions or pneumothorax.? Central and peripheral airways are patent and normal in caliber.? ? Mediastinum:? Heart size is moderately increased.? No pericardial effusion.? Mild coronary artery calcification.? No mediastinal or hilar adenopathy by size criteria.? Central pulmonary arteries are normal in size.? Esophagus is mildly distended and filled with fluid.? No hiatal hernias.? ? Bones and chest wall:? No axillary adenopathy by size criteria.? Thyroid gland is normal. ?No suspicious bony lesions.? No vertebral body compression fractures.? ? ? ABDOMEN:? Vasculature: Mild abdominal aortic ectasia measuring 2.6 x 2.8 cm. Celiac trunk and mesenteric arteries are patent.? There are 2 renal arteries on each side.? Renal arteries are also patent.? ? Solid organs:? Liver is normal in size and enhancement.? Gallbladder contains multiple calcified gallstones .? Biliary system is non dilated.? Pancreas enhances normally.? Spleen is normal in size.? Calcified nodules in spleen are compatible with old granulomas.? Bilateral adrenal thickening.? ? Both kidneys are normal in size and enhancement.? There are 3 1-2 mm non- obstructive stones in left kidney.? No hydronephrosis.? Mild bilateral perinephric stranding.? Multiple renal cysts are seen bilaterally.? ? Peritoneum and bowel:? A small amount of free fluid is present.? No free air.? Fluid-filled, mildly distended small bowel loops are noted measuring up to 3 cm. There are a few air-fluid levels. No transitional point is identified.? Diverticulosis.? No acute diverticulitis.? ? Nodes and vessels:? No retroperitoneal or mesenteric adenopathy by size criteria.? Inferior vena cava is normal in morphology.? ? Miscellaneous:? There is a small fat containing ventral hernia left of the midline at the level just below the umbilicus..? ? ? PELVIS:? Genitourinary:? Bladder wall thickness is normal.? ? Miscellaneous:? No inguinal hernias or adenopathy.? No ventral hernias.? ? Bones:? Scoliosis and severe degenerative changes in spine.? No suspicious bony lesions.? Mild compression fracture of L4.? ? ? IMPRESSION:? ? 1. No aortic dissection. 2. Moderate cardiomegaly.? There is mild coronary artery calcification consistent with atherosclerosis. 3. Nonobstructive left renal stones. 4. Cholelithiasis. 5. Diverticulosis without diverticulitis. 6. Remote granulomatous infection of spleen.? 7. Mildly distended fluid-filled small intestine.? No transitional point to suggest small bowel obstruction.? There is a small amount of free fluid in the peritoneal cavity.? The CT finding may be secondary to gastroenteritis.? Recommend clinical correlation. 8. Gastroesophageal reflux. 9.? Remote granulomatous disease of spleen. 10. A small fat containing ventral hernia. 11. Mild compression fracture of L4, most likely chronic.? Dictated by: Beata Zapien M.D. on 12/18/2021 at 13:18 ? ? Chest x-ray: Radiologist's Impression: PROCEDURE:? XR CHEST 1V ? INDICATIONS:? chest pain ? TECHNIQUE:? One view of the chest was acquired.? ? COMPARISON:? [facility], CR, XR CHEST 2V, 07/17/2021, 10:49. ? FINDINGS:? ? Surgical changes and devices:? None.? ? Lungs and pleura:? The medial lung apices are partially obscured by the patient's neck soft tissues.? There are low lung volumes.? No acute consolidation.? No definite pneumothorax.? No pleural effusions. ? Mediastinum:? Mediastinal contours appear unchanged.? Heart size appears enlarged. ? Bones and chest wall:? No suspicious bony lesions.? Overlying soft tissues appear unremarkable.? ? IMPRESSION:? ? 1. No definite acute cardiopulmonary disease.? ? ? Dictated by: Dean Sargent M.D. on 12/18/2021 at 11:46 ? ? US - abdomen: Radiologist's Impression: PROCEDURE:? US ABDOMEN LIMITED ? INDICATIONS:? EPIGASTRIC PAIN ? TECHNIQUE:? Real-time scanning was performed of the abdominal with image documentation.? ? COMPARISON:? None. ? FINDINGS:? ? Liver:? Liver is normal in size and homogeneous in echotexture.? Gallbladder:? There are mobile gallstones. No gallbladder wall thickening, pericholecystic fluid or sonographic Ngo's sign.? Biliary ducts:? Intrahepatic bile ducts are non-dilated.? Extrahepatic bile duct caliber measures 7.5 mm. Pancreas:? Obscured by overlying bowel gas.? Miscellaneous:? No free abdominal fluid.? ? ? IMPRESSION:? ? 1. Cholelithiasis. 2. Slightly prominent common bile duct.? Please correlate with serum bilirubin for biliary obstruction.? Dictated by: Beata Zapien M.D. on 12/18/2021 at 13:06 ? ? Approved by: Beata Zapien M.D. on 12/18/2021 at 13:09 ? ECG Data Interpretation: EKG 1. Normal sinus rhythm rate 86 ME interval 218 QRS [address] changes or T-wave inversions-similar to prior EKG 2. Sinus rhythm rate 86 no changes similar to prior MDM Narrative Medical decision making narrative: Patient initially was not having any pain however pain started coming up again. CT angio does not show any sort of dissection. Ultrasound confirms esequiel lithiasis without signs of cholecystitis. The significant elevation of bilirubin liver enzymes or lipase. No sign of infection at this time. Patient is intermittently having epigastric pain. Blood work is overall reassuring. No elevation of bilirubin, normal liver enzymes no elevation in her lipase no leukocytosis. Discussion Dr. Dillon applications systems engineer surgery request that patient follow-up as an outpatient no need for emergent surgery patient would definitely do better at home elective patient questionable being on Coumadin with elevated INR. Nursing reports that patient's O2 drops to 88-90%. She is given a DuoNeb treatment. Patient denies any shortness of breath she always has a cough. His ambulation pulse oximeter shows 87-90%. Patient is completely asymptomatic. I went in to discuss with patient I really walked her myself she does drop 89 had 90% but again is completely asymptomatic. She has a home pulse oximeter she says sometimes is 94 is when she sits down. Sometimes with her epigastric pain she is not taking deep breaths I have coached her to take deep breaths and she is given pain medication. Spoken with son and [id number] on the phone. I think there is a mild COPD exacerbation she did have somewhat improved lung sounds after DuoNeb. Will start her on doxycycline and prednisone. BNP is under 100 she did receive 800 mL fluid unlikely to be CHF exacerbation. CT angio did not show any pulmonary embolism she is on Coumadin with therapeutic INR. Most likely this is mild COPD exacerbation although she has no wheezing, possibly hypoventilation as well Discharge Plan Departure Patient Disposition: Home Clinical Impression: Cholelithiasis, COPD exacerbation Instructions: Gallstones, Chronic Obstructive Pulmonary Disease Activity Restrictions/Additional Instructions: *You have been diagnosed with gallstones, COPD exacerbation *What to do: At this time you will need to have her gallbladder taken out however it is not emergent at this time. Try to avoid fatty foods, this could make pain worse. Please continue to check your oxygen on a regular basis. Remember his take deep breaths despite pain. Please have your INR rechecked while taking antibiotics, antibiotics can increase or decrease INR this is very important to monitor please see your [facility] care provider *Continue to take medications as directed [place] 1 tablet every 6 hours if needed for severe pain--> SENT TO [facility] Prednisone 20 mg once daily start tomorrow Doxycycline 100 mg twice a day for 7 days okay to start tomorrow as well *Follow up with your primary care provider in 2-3 days or call [phone] *Return to ER if you should have increasing pain, fever, nausea, vomiting or any new, worsening or concerning symptoms CONTROLLED SUBSTANCE DISCHARGE (Narcotoic/benzodiazepine/Flexeril/Phenergan) 1. You have been prescribed narcotic medications, it does have acetamino phen/Tylenol/paracetamol in it, DO NOT TAKE MORE THAN 4,00mg in 24 hours of Tylenol. TRAMADOL DOES NOT CONTAIN TYLENOL 2. Please understand that we cannot provide further refills of narcotics, cindy zodiazepines or controlled substances through the ED and her pain management will need to be through your provider. 3. While on these medications you cannot drive or operate heavy machinery. 4. You cannot sign legal documents or perform any duties such as this. 5. As long as you're taking opiate pain medications he should also be taking a stool softener such as Colace, Dulcolax, MiraLAX or prune juice, to help avoid constipation. Prescriptions: New hydrocodone-acetaminophen 5-325 mg tablet 1 tab PO Q6H PRN (Reason: pain) Qty: 10 0RF doxycycline hyclate 100 mg capsule 100 mg PO BID Qty: 20 0RF prednisone 20 mg tablet 20 mg PO DAILY Qty: 5 0RF No Action mupirocin 2 % ointment 1 applic topical BID Qty: 30 0RF silver sulfadiazine [Silvadene] 1 % cream 1 applic topical BID Qty: 25 1RF Rx Instructions: apply a 1.5 mm thickness Calcium/Vitamin D3 See Rx Instructions .ROUTE .COMPLEX 0RF Label Comments: 1 TAB PO QDAY Rx Instructions: 1 TAB PO QDAY meclizine 12.5 mg tablet 12.5 mg PO TID PRN (Reason: vertigo) Qty: 14 0RF CA PANTOTHENATE/FOLIC ACID/VIT (MULTIVITAMIN) 1 tab PO QDAY Qty: 0 0RF fexofenadine 180 MG tablet 180 mg PO QDAY Qty: 0 0RF ipratropium-albuterol 0.5 mg-3 mg(2.5 mg base)/3 mL solution for nebulization 3 ml INHALATION Q6HP PRN (Reason: shortness of breath) Qty: 90 0RF fluticasone propion-salmeterol 55-14 mcg/actuation aerosol powdr breath activated 1 inh INHALATION BID Qty: 1 2RF ofloxacin 0.3 % drops 2 drp EYE-BOTH QID 5 Days Qty: 10 1RF alendronate 70 mg tablet 70 mg PO QWEEK Qty: 12 3RF warfarin 5 mg tablet 7.5 mg PO DAILY 0RF albuterol sulfate [Ventolin HFA] 90 mcg/actuation HFA aerosol inhaler 2 puff inhalation Q4HP PRN (Reason: shortness of breath or wheezing) Qty: 1 3RF furosemide 20 mg tablet 20 mg PO DAILY 0RF losartan 25 mg tablet 25 mg PO DAILY 0RF rosuvastatin 10 mg tablet 10 mg PO DAILY 0RF montelukast 10 mg tablet 10 mg PO QPM Qty: 90 1RF Referrals: Rubin Acosta ARNP [Primary Care Provider] - Joseph Dillon MD [Physician] -
--- NOTE | 2021-12-18 11:30 | DI.RAD.S_ITS ---
PROCEDURE: XR CHEST 1V INDICATIONS: chest pain TECHNIQUE: One view of the chest was acquired. COMPARISON: [facility], CR, XR CHEST 2V, 07/17/2021, 10:49. FINDINGS: Surgical changes and devices: None. Lungs and pleura: The medial lung apices are partially obscured by the patient's neck soft tissues. There are low lung volumes. No acute consolidation. No definite pneumothorax. No pleural effusions. Mediastinum: Mediastinal contours appear unchanged. Heart size appears enlarged. Bones and chest wall: No suspicious bony lesions. Overlying soft tissues appear unremarkable. IMPRESSION: 1. No definite acute cardiopulmonary disease. Dictated by: Dean Sargent M.D. on 12/18/2021 at 11:46 Approved by: Dean Sargent M.D. on 12/18/2021 at 11:48
[2021-12-18 11:32] LABS: Add Manual Diff / Slide Review NO; Basophils Absolute Auto 0 /uL (0-100); Basophils Percent Auto 0.4 % (0-2); Eosinophils Absolute Auto 0 /uL (0-450); Eosinophils Percent Auto 0.4 % (2-4); Hemoglobin 15.8 g/dL (12.0-16.0); Lymphocytes Absolute Auto 600 /uL (1100-4500); Lymphocytes Percent Auto 6.2 % (25-40); Mean Corpuscular HGB Conc 33.7 % (30-36); Mean Corpuscular Hemoglobin 31.6 PG (26-34); Mean Corpuscular Volume 93.7 fL (80-100); Monocytes Absolute Auto 500 /uL (0-900); Neutrophils Absolute Auto 8900 /uL (1500-7000); Platelet Count 222 X10^3/uL (150-400); Red Blood Cell Count 5.01 X10^6/uL (4.0-5.2); Red Cell Distribution Width 14.5 % (11.6-14.8); White Blood Cell Count 10.1 X10^3/uL (4.5-11.0)
[2021-12-18] MEDS: SODIUM CHLORIDE 0.9% 1,000 ML 1000 ML IV (11:35)
[2021-12-18 11:39] LABS: INR 2.7 (0.9-1.3); Prothrombin Time 31.9 SECONDS (10.1-12.7)
[2021-12-18 11:41] LABS: PTT Partial Thromboplastin Tim 46 SECONDS (26.4-36.2)
[2021-12-18 11:43] LABS: Alanine Aminotransferase 21 IU/L (<35); Albumin 4.4 g/dL (3.5-5.0); Albumin Globulin Ratio 1.3 (1.0-2.8); Alkaline Phosphatase 83 U/L (38-126); Aspartate Aminotransferase 27 IU/L (14-36); BUN Creatinine Ratio 38.6 (6-22); Blood Urea Nitrogen 22 mg/dL (7-17); Calcium 9.2 mg/dL (8.4-10.2); Carbon Dioxide 30 mmol/L (22-32); Chloride 104 mmol/L (98-107); Creatine Kinase 78 U/L (30-135); Estimated Glomerular Filt Rate > 60.0 mL/min (>60); Globulin 3.4 g/dL (1.7-4.1); Glucose 126 mg/dL (80-110); HEMOLYSIS 36 (0-50); Lipase 31 U/L (23-300); Potassium 4.2 mmol/L (3.4-5.1); Sodium 138 mmol/L (137-145); Total Protein 7.8 g/dL (6.3-8.2)
--- NOTE | 2021-12-18 11:54 | DI.US.S_ITS ---
PROCEDURE: US ABDOMEN LIMITED INDICATIONS: EPIGASTRIC PAIN TECHNIQUE: Real-time scanning was performed of the abdominal with image documentation. COMPARISON: None. FINDINGS: Liver: Liver is normal in size and homogeneous in echotexture. Gallbladder: There are mobile gallstones. No gallbladder wall thickening, pericholecystic fluid or sonographic Ngo's sign. Biliary ducts: Intrahepatic bile ducts are non-dilated. Extrahepatic bile duct caliber measures 7.5 mm. Pancreas: Obscured by overlying bowel gas. Miscellaneous: No free abdominal fluid. IMPRESSION: 1. Cholelithiasis. 2. Slightly prominent common bile duct. Please correlate with serum bilirubin for biliary obstruction. Dictated by: Beata Zapien M.D. on 12/18/2021 at 13:06 Approved by: Beata Zapien M.D. on 12/18/2021 at 13:09
[2021-12-18 11:55] LABS: Troponin I 0.023 ng/mL (0.01-0.034)
--- NOTE | 2021-12-18 12:53 | DI.CT.S_ITS ---
PROCEDURE: CT ANGIO CHEST ABDOMEN PELVIS INDICATIONS: epigastric pain chest pain hx pe TECHNIQUE: Precontrast 5 mm thick sections acquired from the lung apices to the iliac crests. After the administration of intravenous contrast, 2.5 mm thick sections again acquired from the lung apices to the iliac crests. Maximum intensity projection (MIP) oblique sagittal and coronal reformats were then acquired. For radiation dose reduction, the following was used: automated exposure control. COMPARISON: [facility], CR, XR CHEST 1V, 12/18/2021, 11:31. [facility], CT, CT ANGIO CHEST PE PROTOCOL, 07/17/2021, 12:23. FINDINGS: Image quality: Excellent. AORTA: Normal in caliber. No dissection. Mild atherosclerotic calcifications. Great vessels are patent and normal in caliber. CHEST: Lungs and pleura: No acute airspace opacities. No pleural effusions or pneumothorax. Central and peripheral airways are patent and normal in caliber. Mediastinum: Heart size is moderately increased. No pericardial effusion. Mild coronary artery calcification. No mediastinal or hilar adenopathy by size criteria. Central pulmonary arteries are normal in size. Esophagus is mildly distended and filled with fluid. No hiatal hernias. Bones and chest wall: No axillary adenopathy by size criteria. Thyroid gland is normal. No suspicious bony lesions. No vertebral body compression fractures. ABDOMEN: Vasculature: Mild abdominal aortic ectasia measuring 2.6 x 2.8 cm. Celiac trunk and mesenteric arteries are patent. There are 2 renal arteries on each side. Renal arteries are also patent. Solid organs: Liver is normal in size and enhancement. Gallbladder contains multiple calcified gallstones . Biliary system is non dilated. Pancreas enhances normally. Spleen is normal in size. Calcified nodules in spleen are compatible with old granulomas. Bilateral adrenal thickening. Both kidneys are normal in size and enhancement. There are 3 1-2 mm non-obstructive stones in left kidney. No hydronephrosis. Mild bilateral perinephric stranding. Multiple renal cysts are seen bilaterally. Peritoneum and bowel: A small amount of free fluid is present. No free air. Fluid-filled, mildly distended small bowel loops are noted measuring up to 3 cm. There are a few air-fluid levels. No transitional point is identified. Diverticulosis. No acute diverticulitis. Nodes and vessels: No retroperitoneal or mesenteric adenopathy by size criteria. Inferior vena cava is normal in morphology. Miscellaneous: There is a small fat containing ventral hernia left of the midline at the level just below the umbilicus.. PELVIS: Genitourinary: Bladder wall thickness is normal. Miscellaneous: No inguinal hernias or adenopathy. No ventral hernias. Bones: Scoliosis and severe degenerative changes in spine. No suspicious bony lesions. Mild compression fracture of L4. IMPRESSION: 1. No aortic dissection. 2. Moderate cardiomegaly. There is mild coronary artery calcification consistent with atherosclerosis. 3. Nonobstructive left renal stones. 4. Cholelithiasis. 5. Diverticulosis without diverticulitis. 6. Remote granulomatous infection of spleen. 7. Mildly distended fluid-filled small intestine. No transitional point to suggest small bowel obstruction. There is a small amount of free fluid in the peritoneal cavity. The CT finding may be secondary to gastroenteritis. Recommend clinical correlation. 8. Gastroesophageal reflux. 9. Remote granulomatous disease of spleen. 10. A small fat containing ventral hernia. 11. Mild compression fracture of L4, most likely chronic. Dictated by: Beata Zapien M.D. on 12/18/2021 at 13:18 Approved by: Beata Zapien M.D. on 12/18/2021 at 13:44
[2021-12-18 13:36] LABS: Bacteria Urine None Seen; Culture Indicated Urine Cult Not Indicated; RBC Urine 5-10/HPF (0-5/HPF); WBC Urine None Seen (0-5/HPF)
[2021-12-18 14:16] LABS: NT-proBNP (BNP-Adult 18+) 98 pg/mL (<450)
[2021-12-18] MEDS: ONDANSETRON 4 MG/2 ML INJ IV (14:42)
[2021-12-18] MEDS: MORPHINE 2 MG/ML INJ IV (14:43)
[2021-12-18 15:26] LABS: COVID19 -Nasal RAPID Negative (Negative)
[2021-12-18] MEDS: ALBUTEROL/IPRATROPIUM 3 ML AMPUL INH (15:38)
--- NOTE | 2021-12-18 16:25 | PC.NURSE ---
This [employer] did ambulation trial with patient. Patient stated that she felt fine but oxygen stayed between 87-89 while walking. Got back to patient's room and her breathing seemed a bit labored. Patient's oxygen was at 84-87. RN made aware.
[2021-12-18] MEDS: methylPREDNISolone 125 MG/2 ML VIAL IV (17:23)
== END 2021-12-18 17:49 | disposition home or self-care (01) ==
PROVIDERS: Emergency Provider Emergency Medicine; PCP Nurse Practitioner Family
DX: K80.20 Calculus of gallbladder without cholecystitis without obstruction (principal); J44.1 Chronic obstructive pulmonary disease with (acute) exacerbation; F17.210 Nicotine dependence, cigarettes, uncomplicated; Z20.822 Contact with and (suspected) exposure to COVID-19
CPT/HCPCS: 36415; 71045; 71275; 74174; 76705; 80053; 81003; 81015; 82550; 83690; 83880; 84484; 85025; 85610; 85730; 87086; 87635; 93005; 94640; 99285; C9803; J2270; J2405; J2930

== ENCOUNTER → 2022-01-03 14:01 | Outpatient (CLI) | payer OTHER, SELFPAY ==
--- NOTE | 2022-01-03 14:01 | DI.CT.S_ITS ---
PROCEDURE: CT CHEST WO CON INDICATIONS: Solitary pulmonary nodule F/U TECHNIQUE: Noncontrast 5 mm thick sections acquired from the pulmonary apices to the posterior costophrenic angles. 1 mm lung window, 5 mm thick coronal and sagittal and 7 mm axial MIP reformats were then acquired. For radiation dose reduction, the following was used: automated exposure control, adjustment of mA and/or kV according to patient size. COMPARISON: [facility], CT, CT ANGIO CHEST PE PROTOCOL, 07/17/2021, 12:23. [facility], CT, CT ANGIO CHEST ABDOMEN PELVIS, 12/18/2021, 12:35. FINDINGS: Image quality: Excellent. Lungs and pleura: Subpleural solid nodule measuring 8 mm at the left lateral costophrenic sulcus has been stable compared to 07/17/21. There are adjacent 5 mm calcified nodule, and a 2 mm juxta fissural nodule in the posterior left upper lobe at a mid lung level, 3/125. No other suspicious lung masses or nodules. There is mild gravitational change in the right lung and at the right costophrenic sulcus. No pleural effusions, pleural plaque, or pneumothorax. Central and peripheral airways are normal. Mediastinum: The heart is mildly enlarged with mild coronary artery calcification. No pericardial effusion. The aorta is ectatic at 4.0 cm in AP diameter and demonstrates moderate arch calcification. The pulmonary arteries are mildly enlarged at 3.1 and 3.7 cm in diameter, right and left respectively. There are several calcified nonenlarged left hilar lymph nodes. There is no mediastinal or hilar adenopathy. The esophagus is normal in course and caliber without hiatal hernia present. Bones and chest wall: There is moderate kyphosis and degenerative endplate sclerosis in the midthoracic spine. Mild dextroscoliosis. No vertebral body fractures. No suspicious bone lesions. Thyroid gland is within normal limits. No supraclavicular or axillary adenopathy. Soft tissues are normal. Abdomen: The upper abdomen demonstrates calcifications in the spleen, several dependently layering gallstones, an exophytic left renal cyst, and partially imaged moderate left hydronephrosis present previously. There is also diverticulosis in the visible loops of colon. IMPRESSION: 1. 8 mm subpleural left costophrenic sulcus nodule. Follow-up chest CT in 6-12 months to document stability is recommended. 2. Calcified left lung nodule, calcified left hilar nodes and calcifications in the spleen suggest exposure to prior granulomatous disease. 3. Ectatic ascending thoracic aorta and enlarged pulmonary arteries. There may be pulmonary artery hypertension. Correlate clinically. Dictated by: Naida Rolle M.D. on 01/03/2022 at 16:23 Approved by: Naida Rolle M.D. on 01/03/2022 at 16:32
== END ==
PROVIDERS: PCP Nurse Practitioner Family; Referring Provider Nurse Practitioner Family; Visit Provider Nurse Practitioner Family
DX: R91.1 Solitary pulmonary nodule (principal); I77.810 Thoracic aortic ectasia; J98.4 Other disorders of lung; I77.89 Other specified disorders of arteries and arterioles; K57.90 Diverticulosis of intestine, part unspecified, without perforation or abscess without bleeding
CPT/HCPCS: 71250

== ENCOUNTER → 2022-03-18 18:22 | Outpatient (CLI) | payer OTHER, SELFPAY | PROVIDERS: PCP Nurse Practitioner Family; Visit Provider Physician Assistant | DX: R30.0 Dysuria (principal) | CPT/HCPCS: 87077; 87086; 87186 ==

== ENCOUNTER → 2022-05-29 09:09 | Outpatient (CLI) | payer OTHER, SELFPAY ==
--- NOTE | 2022-05-29 09:10 | DI.US.S_ITS ---
PROCEDURE: US [facility] VENOUS LOW EXTREM LT INDICATIONS: left leg swelling and pain TECHNIQUE: Real-time imaging, as well as color and pulse Doppler interrogation, were performed of the lower extremity deep veins from the inguinal ligament to the popliteal fossa. COMPARISON: [facility], , [facility] VENOUS LOW EXTREM LT, 07/17/2021, 10:22. FINDINGS: The common femoral, femoral and popliteal veins are normally compressible, and free of intraluminal thrombus. Color and pulse Doppler demonstrate normal phasic intraluminal flow. There is normal augmentation response to distal compression maneuver. Complex Torres cyst, medial popliteal fossa, 5.2 x 2.7 x 4.7 cm. IMPRESSION: 1. Negative left lower extremity duplex venous ultrasound for DVT. 2. Complex Torres cyst. Consider ruptured Torres cyst. Dictated by: Hayden Sykes M.D. on 05/29/2022 at 9:53 Approved by: Hayden Sykes M.D. on 05/29/2022 at 9:55
== END ==
PROVIDERS: PCP Nurse Practitioner; Referring Provider Nurse Practitioner Family; Visit Provider Nurse Practitioner Family
DX: M79.605 Pain in left leg (principal); M71.22 Synovial cyst of popliteal space [Baker], left knee; M79.89 Other specified soft tissue disorders
CPT/HCPCS: 93971

== ENCOUNTER → 2022-06-11 06:54 | Outpatient (CLI) | payer OTHER, SELFPAY ==
[2022-06-11 08:35] LABS: INR 2.6 (0.9-1.3); Prothrombin Time 30.2 SECONDS (10.1-12.7)
== END ==
PROVIDERS: PCP Nurse Practitioner; Referring Provider Nurse Practitioner; Visit Provider Nurse Practitioner
DX: Z79.01 Long term (current) use of anticoagulants (principal)
CPT/HCPCS: 36415; 85610

== ENCOUNTER 2022-06-11 11:09 | Emergency (ER) | payer OTHER, SELFPAY ==
[2022-06-11 11:13] VITALS: BP 149/81; PULSE 65; RESP 16; TEMP 36.3; O2SAT 96; BMI 35.4
--- NOTE | 2022-06-11 11:17 | DI.RAD.S_ITS ---
PROCEDURE: XR ANKLE LT MIN 3V INDICATIONS: ankle pain,bruising TECHNIQUE: 3 views of the ankle were acquired. COMPARISON: None. FINDINGS: Bones: No fractures or dislocations. Ankle mortise is normally aligned. No suspicious bony lesions. Small posterior and plantar calcaneal spurring Soft tissues: No tibiotalar joint effusion. Achilles tendon appears normal. IMPRESSION: Mild degenerative changes fracture or foreign body Approved by: Gabriel Walker M.D. on 06/11/2022 at 11:31
[2022-06-11 12:35] LABS: Add Manual Diff / Slide Review NO; Basophils Absolute Auto 100 /uL (0-100); Basophils Percent Auto 1.3 % (0-2); Eosinophils Absolute Auto 400 /uL (0-450); Eosinophils Percent Auto 6.6 % (2-4); Hematocrit 41.8 % (36-46); Hemoglobin 14.2 g/dL (12.0-16.0); Lymphocytes Absolute Auto 1300 /uL (1100-4500); Lymphocytes Percent Auto 22.5 % (25-40); Mean Corpuscular HGB Conc 33.9 % (30-36); Mean Corpuscular Hemoglobin 32.3 PG (26-34); Mean Corpuscular Volume 95.3 fL (80-100); Monocytes Absolute Auto 500 /uL (0-900); Monocytes Percent Auto 8.2 % (3-14); Neutrophils Absolute Auto 3600 /uL (1500-7000); Neutrophils Percent Auto 61.4 % (50-75); Platelet Count 254 X10^3/uL (150-400); Red Blood Cell Count 4.38 X10^6/uL (4.0-5.2); Red Cell Distribution Width 14.7 % (11.6-14.8); White Blood Cell Count 5.9 X10^3/uL (4.5-11.0)
[2022-06-11 12:44] LABS: Alanine Aminotransferase 20 IU/L (<35); Albumin 4.1 g/dL (3.5-5.0); Albumin Globulin Ratio 1.3 (1.0-2.8); Alkaline Phosphatase 80 U/L (38-126); Aspartate Aminotransferase 27 IU/L (14-36); BUN Creatinine Ratio 19.2 (6-22); Bilirubin Total 0.9 mg/dL (0.2-1.3); Blood Urea Nitrogen 15 mg/dL (7-17); Calcium 8.8 mg/dL (8.4-10.2); Carbon Dioxide 33 mmol/L (22-32); Chloride 104 mmol/L (98-107); Estimated Glomerular Filt Rate > 60 mL/min (>60); Globulin 3.2 g/dL (1.7-4.1); Glucose 110 mg/dL (80-110); HEMOLYSIS < 15 (0-50); Potassium 4.1 mmol/L (3.4-5.1); Sodium 142 mmol/L (137-145); Total Protein 7.3 g/dL (6.3-8.2)
[2022-06-11 12:47] LABS: INR 2.7 (0.9-1.3); Prothrombin Time 31.4 SECONDS (10.1-12.7)
--- NOTE | 2022-06-11 13:21 | DI.US.S_ITS ---
PROCEDURE: US EXTREMITY NONVASC LOWER LT INDICATIONS: eval for bakers cyst (rupture) TECHNIQUE: Real-time scanning was performed of the popliteal fossa, with image documentation. COMPARISON: [id number] FINDINGS: Complex cystic structure in the left popliteal fossa measures 6.4 x 3.0 x 3.4 cm, previously 5.2 x 2.7 x 4.7 cm. No significant capsule. Visualized vessels unremarkable. IMPRESSION: Complex popliteal cyst, slightly larger than the prior exam Approved by: Gabriel Walker M.D. on 06/11/2022 at 13:36
--- NOTE | 2022-06-11 14:18 | ED_ITS ---
HPI - Extremity Problem <CARIDAD SuhP - Last Filed: 06/11/22 18:00> General Chief complaint: Extremity Problem,Nontraumatic Stated complaint: Left leg purple, on blood thinners Time Seen by Provider: 06/11/22 12:06 Source: patient Mode of arrival: Ambulatory History of Present Illness HPI Narrative: This is a 77-year-old female patient with history of varicose veins, COPD, diastolic heart failure and history of pulmonary embolism on chronic anticoagulation of warfarin with goal INR of 2-3. 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 Patient states that her INR this morning was 2.6. She denies any recent trauma, states it has progressed as far as the ecchymosis and she has bruising from the posterior mid thigh to the posterior knee and from the mid lower leg to her ankle. She denies any sensation changes, states it is warm to touch, denies feeling poorly or having fever or illness. Related Data Home Medications Medication Instructions Recorded Confirmed fexofenadine 180 mg tablet 180 mg PO QDAY ##0 11/26/17 03/18/22 Calcium/Vitamin D3 See Rx Instructions .Route .COMPLEX 08/09/18 03/18/22 furosemide 20 mg tablet 20 mg PO DAILY 07/23/21 03/18/22 losartan 25 mg tablet 25 mg PO DAILY 07/23/21 03/18/22 rosuvastatin 10 mg tablet 10 mg PO DAILY 07/23/21 03/18/22 Previous Rx's Medication Instructions Recorded albuterol sulfate 90 mcg/actuation 2 puff inhalation Q4HP PRN 07/19/20 aerosol inhaler (Ventolin HFA) shortness of breath or wheezing #1 inh alendronate 70 mg tablet 70 mg PO QWEEK Osteopenia #12 tabs 09/19/20 ofloxacin 0.3 % eye drops 2 drp EYE-BOTH QID 5 days #10 mL 09/19/20 ipratropium 0.5 mg-albuterol 3 mg 3 ml inhalation Q6HP PRN shortness 03/29/21 (2.5 mg base)/3 mL nebulization of breath #90 ea soln montelukast 10 mg tablet 10 mg PO QPM #90 tabs 03/03/22 meclizine 12.5 mg tablet 12.5 mg PO TID PRN vertigo #14 tabs 03/24/22 fluticasone 55 mcg-salmeterol 14 1 inh inhalation BID #1 ea 05/02/22 mcg/actuation breath activated powder warfarin 5 mg tablet See Rx Instructions .Route 06/05/22 .COMPLEX #90 tabs Allergies Allergy/AdvReac Type Severity Reaction Status Date / Time No Known Drug Allergies Allergy Verified 06/11/22 11:13 Review of Systems <BLAKE Suh - Last Filed: 06/11/22 18:00> Review of Systems Narrative: Review of systems is negative for acute abnormalities unless otherwise noted in HPI Patient History <BLAKE Suh - Last Filed: 06/11/22 18:00> Medical History (HFpEF) heart failure with preserved ejection fraction (~06/2021) Abnormal echocardiogram (05/2021) Allergies Asthma Chicken pox Chronic obstructive pulmonary disease (12/23/12) Diastolic dysfunction (05/2021) Hematuria History of pulmonary embolism (06/2021) Hyperlipidemia Incidental lung nodule, greater than or equal to 8mm (07/2021) Osteoarthritis Osteopenia after menopause Osteoporosis Polyp of colon (04/02/11) Psoriasis Sensation of pressure in bladder area Smoker unmotivated to quit Toenail fungus Warfarin anticoagulation Surgical History History of colonoscopy with polypectomy (05/04/09) History of ventral hernia repair (08/10/07) Family History Father Diabetes mellitus History of heart disease Hypertension Stroke Mother History of heart disease Hypertension Grandfather History of heart disease Grandmother History of heart disease Social History Smoking Status: Current every day smoker Tobacco: How many years used: 58 quit status: considering quitting second hand exposure: No alcohol intake: never substance use type: does not use Smoking Status: Current every day smoker tobacco type: cigarettes alcohol intake frequency: holidays/special occasions only Substance Use Type: does not use Exam <BLAKE Suh - Last Filed: 06/11/22 18:00> Narrative Exam Narrative: Reviewed vitals signs and nursing notes. General: cooperative, comfortable, in no acute distress, well groomed HEENT: symmetrical facial expressions, moist mucous membranes Cardiovascular: regular rate and rhythm, no peripheral edema, warm extremities Respiratory: normal effort, able to speak in complete sentences, without wheezing, stridor, or abnormal breath sounds. No retractions or tachypnea. GI: abdomen soft, nontender to palpation, nondistended, without masses, rebound tenderness or exquisite tenderness with exam. MSK: moves all extremities, neurovascularly intact, no weakness, normal tone, pulse to bilateral lower extremities is strong, palpable, and her lower extremities bilaterally are warm to touch. Her left lower leg is ecchymotic with dependent edema without erythema or wound, ecchymosis notable to the posterior left knee, no significant tenderness, patient has been elevating frequently with ecchymosis moving proximally and distally. Skin: brisk capillary refill, without pallor or erythema Neuro: normal speech and cognition, A&O x3, ambulatory, clear speech Psych: mental status is grossly normal, congruent mood, normal affect, pleasant and cooperative Initial Vital Signs Initial Vital Signs: Vital Signs Temperature 97.4 F L 06/11/22 11:13 Pulse Rate 65 06/11/22 11:13 Respiratory Rate 16 06/11/22 11:13 Blood Pressure 149/81 H 06/11/22 11:13 Pulse Oximetry 96 06/11/22 11:13 Oxygen Delivery Method 06/11/22 11:13 <Desiree Angulo DO - Last Filed: 06/12/22 07:48> Initial Vital Signs Initial Vital Signs: Vital Signs Temperature 97.4 F L 06/11/22 11:13 Pulse Rate 65 06/11/22 11:13 Respiratory Rate 16 06/11/22 11:13 Blood Pressure 149/81 H 06/11/22 11:13 Pulse Oximetry 96 06/11/22 11:13 Oxygen Delivery Method 06/11/22 11:13 Course <BLAKE Suh - Last Filed: 06/11/22 18:00> Orders Ordered: ED Orders 06/11/22 11:17 XR ankle LT min 3V Stat 06/11/22 12:26 CBC Auto Diff [Complete Blood Count AUTO DIFF] Stat CMP [Comprehensive Metabolic Panel] Stat Prothrombin Time INR Stat 06/11/22 13:21 US extremity nonvasc lower lt Stat Vital Signs Vital signs: Vital Signs - 8 hr 06/11/22 11:13 06/11/22 15:25 06/11/22 15:27 Temperature 97.4 F L Pulse Rate 65 69 69 Respiratory Rate 16 16 16 Blood Pressure 149/81 H 127/72 127/72 Pulse Oximetry 96 98 99 Oxygen Delivery Method Room Air Room Air Room Air <Desiree Angulo DO - Last Filed: 06/12/22 07:48> Orders Ordered: ED Orders 06/11/22 11:17 XR ankle LT min 3V Stat 06/11/22 12:26 CBC Auto Diff [Complete Blood Count AUTO DIFF] Stat CMP [Comprehensive Metabolic Panel] Stat Prothrombin Time INR Stat 06/11/22 13:21 US extremity nonvasc lower lt Stat Vital Signs Vital signs: Vital Signs - 8 hr 06/11/22 11:13 06/11/22 15:25 06/11/22 15:27 Temperature 97.4 F L Pulse Rate 65 69 69 Respiratory Rate 16 16 16 Blood Pressure 149/81 H 127/72 127/72 Pulse Oximetry 96 98 99 Oxygen Delivery Method Room Air Room Air Room Air MDM - Extremity (Nontraumatic) <CARIDAD SuhP - Last Filed: 06/11/22 18:00> Lab Data Result diagrams: 06/11/22 12:26 06/11/22 12:26 Labs: Lab Results 06/11/22 06/11/22 06/11/22 Range/Units 12:26 12:26 12:26 WBC 5.9 (4.5-11.0) X10^3/uL RBC 4.38 (4.0-5.2) X10^6/uL Hgb 14.2 (12.0-16.0) g/dL Hct 41.8 (36-46) % MCV 95.3 (80-100) fL MCH 32.3 (26-34) PG MCHC 33.9 (30-36) % RDW 14.7 (11.6-14.8) % Plt Count 254 (150-400) X10^3/uL Neut % (Auto) 61.4 (50-75) % Lymph % (Auto) 22.5 L (25-40) % Bartholomew % (Auto) 8.2 (3-14) % Eos % (Auto) 6.6 H (2-4) % Baso % (Auto) 1.3 (0-2) % Neut # (Auto) 3600 (1387-1556) /uL Lymph # (Auto) 1300 (5341-1070) /uL Bartholomew # (Auto) 500 (0-900) /uL Eos # (Auto) 400 (0-450) /uL Baso # (Auto) 100 (0-100) /uL PT 31.4 H (10.1-12.7) SECONDS INR 2.7 H (0.9-1.3) Sodium 142 (137-145) mmol/L Potassium 4.1 (3.4-5.1) mmol/L Chloride 104 (98-107) mmol/L Carbon Dioxide 33 H (22-32) mmol/L BUN 15 (7-17) mg/dL Creatinine 0.78 (0.52-1.04) mg/dL Estimated GFR > 60 (>60) mL/min BUN/Creatinine Ratio 19.2 (6-22) Glucose 110 (80-110) mg/dL Calcium 8.8 (8.4-10.2) mg/dL Total Bilirubin 0.9 (0.2-1.3) mg/dL AST 27 (14-36) IU/L ALT 20 (<35) IU/L Alkaline Phosphatase 80 (38-126) U/L Total Protein 7.3 (6.3-8.2) g/dL Albumin 4.1 (3.5-5.0) g/dL Globulin 3.2 (1.7-4.1) g/dL Albumin/Globulin Ratio 1.3 (1.0-2.8) Imaging Data US - DVT: Radiologist's Impression: PROCEDURE:? US EXTREMITY NONVASC LOWER LT ? INDICATIONS:? eval for bakers cyst (rupture) ? TECHNIQUE:? Real-time scanning was performed of the popliteal fossa, with image documentation.? ? COMPARISON:? 1121 ? FINDINGS:? ? Complex cystic structure in the left popliteal fossa measures 6.4 x 3.0 x 3.4 cm, previously 5.2 x 2.7 x 4.7 cm.? No significant capsule.? Visualized vessels unremarkable. ? IMPRESSION:? ? Complex popliteal cyst, slightly larger than the prior exam ? ? ? Approved by: Gabriel Walker M.D. on 06/11/2022 at 13:36? [facility] Narrative Medical decision making narrative: This is a 77-year-old female who presents to the emergency department for evaluation of her left lower extremity edema and ecchymosis. She was diagnosed with a Torres cyst on 05/28/2022 via ultrasound here in the emergency department. She followed up in the walk-in clinic saw her a few days ago, she also went to the walk-in clinic yesterday for evaluation but was sent to the emergency department. She denies any trauma, states that her INR was 2.6 this morning, states that she is on her normal warfarin dosing. She denies any sensation changes or having a cold extremity. X-ray of her left ankle today shows mild degenerative changes without fracture or foreign body, lower extremity ultrasound of her left leg shows a complex popliteal cyst which is slightly larger than prior exam measuring 6.4 x 3.0 x 3.4 cm compared to previous at 5.2 x 2.7 x 4.7 cm. Visualized vessels were unremarkable. Patient does not have any surrounding erythema, there is ecchymosis but it appears to be yellowing and there does not appear to be any new hemorrhage in her left leg. Her PT and DP p ulses are palpable and 2+, brisk cap refill, left lower extremity is warm but does not show evidence of infection or cellulitis. Patient is appropriate and amenable to discharge home. Vital signs are stable on repeat examination is unremarkable. Patient has been informed of results. Patient has been given strict return to ER precautions for any new or worsening symptoms. Patient understands to follow up closely with outpatient providers as instructed. Patient understands plan and agrees to discharge home. All questions and concerns answered at this time. <Desiree Angulo, DO - Last Filed: 06/12/22 07:48> Lab Data Labs: Lab Results 06/11/22 06/11/22 06/11/22 Range/Units 12:26 12:26 12:26 WBC 5.9 (4.5-11.0) X10^3/uL RBC 4.38 (4.0-5.2) X10^6/uL Hgb 14.2 (12.0-16.0) g/dL Hct 41.8 (36-46) % MCV 95.3 (80-100) fL MCH 32.3 (26-34) PG MCHC 33.9 (30-36) % RDW 14.7 (11.6-14.8) % Plt Count 254 (150-400) X10^3/uL Neut % (Auto) 61.4 (50-75) % Lymph % (Auto) 22.5 L (25-40) % Bartholomew % (Auto) 8.2 (3-14) % Eos % (Auto) 6.6 H (2-4) % Baso % (Auto) 1.3 (0-2) % Neut # (Auto) 3600 (5228-1075) /uL Lymph # (Auto) 1300 (3760-4462) /uL Bartholomew # (Auto) 500 (0-900) /uL Eos # (Auto) 400 (0-450) /uL Baso # (Auto) 100 (0-100) /uL PT 31.4 H (10.1-12.7) SECONDS INR 2.7 H (0.9-1.3) Sodium 142 (137-145) mmol/L Potassium 4.1 (3.4-5.1) mmol/L Chloride 104 (98-107) mmol/L Carbon Dioxide 33 H (22-32) mmol/L BUN 15 (7-17) mg/dL Creatinine 0.78 (0.52-1.04) mg/dL Estimated GFR > 60 (>60) mL/min BUN/Creatinine Ratio 19.2 (6-22) Glucose 110 (80-110) mg/dL Calcium 8.8 (8.4-10.2) mg/dL Total Bilirubin 0.9 (0.2-1.3) mg/dL AST 27 (14-36) IU/L ALT 20 (<35) IU/L Alkaline Phosphatase 80 (38-126) U/L Total Protein 7.3 (6.3-8.2) g/dL Albumin 4.1 (3.5-5.0) g/dL Globulin 3.2 (1.7-4.1) g/dL Albumin/Globulin Ratio 1.3 (1.0-2.8) Discharge Plan Departure Patient Disposition: Home Clinical Impression: Multiple ecchymoses of thigh Popliteal cyst, unruptured Qualifiers: Laterality: left Qualified Code(s): M71.22 - Synovial cyst of popliteal space [ Torres], left knee Instructions: DI for Torres Cyst Activity Restrictions/Additional Instructions: *You have been diagnosed with a complex popliteal/Torres's cyst of your left knee. It is approximately 1 cm larger in diameter than it was on 05/29/2022. I suspect that the bruising in your leg is slowly improving although there is quite a bit so it will take longer for it to fully go away. Your INR today is therapeutic at 2.7. Please continue with ice, you may alternate with heat if this seems to be helpful. Continue with compression stockings and light activity/short walks to help increase venous Please follow up with PCP as directed. Return to clinic/ER precautions discussed with patient for new, not- improving, or worsening symptoms.. Please continue using topical diclofenac gel or lidocaine cream for pain, it may or may not offer comfort. Please do not take any anti-inflammatories like ibuprofen, use Tylenol as needed for pain and please follow-up with your primary care provider. If this worsens and if you develop symptoms of illness like a fever, fatigue, redness or a wound, please come in for evaluation for infection and treatment. Please continue your warfarin dosing and you may call [facility] if this worsens or if you are having difficulty walking due to this. This will most likely improve although it will take a few weeks. Thank you for coming in for evaluation, sorry for your wait today. *What to do: *Please continue to take your regular medications as directed. [ ] New medication prescriptions sent to your pharmacy: [ ] [ ] New medication written as a paper prescription [x ] No new medications given *Please follow up with your primary care provider in 2-3 days, call for an appointment. Let them know you were seen in the Emergency Department and that we asked that you be seen for follow-up. We will electronically transmit a record of today's note if your PCP is in our system *If you do not have a primary care provider please contact [phone] to establish care with one of the [facility] primary care providers. *Return to Emergency Department if you should have any new, worsening, or concerning symptoms, such as [fever greater than 101F, chills, worsening pain, persistent vomiting or other bothersome symptoms]. Prescriptions: No Action Calcium/Vitamin D3 See Rx Instructions .ROUTE .COMPLEX Label Comments: 1 TAB PO QDAY Rx Instructions: 1 TAB PO QDAY fexofenadine 180 MG tablet 180 mg PO QDAY Qty: 0 ipratropium-albuterol 0.5 mg-3 mg(2.5 mg base)/3 mL solution for nebulization 3 ml INHALATION Q6HP PRN (Reason: shortness of breath) Qty: 90 0RF montelukast 10 mg tablet 10 mg PO QPM Qty: 90 3RF fluticasone propion-salmeterol 55-14 mcg/actuation aerosol powdr breath activated 1 inh INHALATION BID Qty: 1 2RF warfarin 5 mg tablet See Rx Instructions .ROUTE .COMPLEX Qty: 90 0RF Dose Instruction: TAKE ONE TABLET (5 MG) BY MOUTH ON THURSDAY AND THURSDAY AND TAKE ONE AND ONE- HALF TABLETS (7.5 MG) ALL OTHER DAYS OF THE WEEK OR DIRECTED Rx Instructions: TAKE ONE TABLET (5 MG) BY MOUTH ON THURSDAY AND THURSDAY AND TAKE ONE AND ONE- HALF TABLETS (7.5 MG) ALL OTHER DAYS OF THE WEEK OR DIRECTED ofloxacin 0.3 % drops 2 drp EYE-BOTH QID 5 Days Qty: 10 1RF alendronate 70 mg tablet 70 mg PO QWEEK Qty: 12 3RF albuterol sulfate [Ventolin HFA] 90 mcg/actuation HFA aerosol inhaler 2 puff inhalation Q4HP PRN (Reason: shortness of breath or wheezing) Qty: 1 3RF furosemide 20 mg tablet 20 mg PO DAILY losartan 25 mg tablet 25 mg PO DAILY rosuvastatin 10 mg tablet 10 mg PO DAILY meclizine 12.5 mg tablet 12.5 mg PO TID PRN (Reason: vertigo) Qty: 14 0RF Referrals: [facility] [Provider Group] Edilma Vyas ARNP [Primary Care Provider] - Visit Report Forms: Patient Portal/API <Desiree Angulo DO - Last Filed: 06/12/22 07:48> Cosign ED Attending Cosshavonature Attestation: I was immediately available in the department for consultation. Documentation has been reviewed. I agree with assessment and plan.
[2022-06-11 15:25] VITALS: BP 127/72; PULSE 69; RESP 16; O2SAT 98
[2022-06-11 15:27] VITALS: BP 127/72; PULSE 69; RESP 16; O2SAT 99
== END 2022-06-11 15:27 | disposition home or self-care (01) ==
PROVIDERS: Emergency Provider Nurse Practitioner Critical Care Medicine; PCP Nurse Practitioner
DX: M71.22 Synovial cyst of popliteal space [Baker], left knee (principal); Z79.01 Long term (current) use of anticoagulants
CPT/HCPCS: 36415; 73610; 76882; 80053; 85025; 85610; 99281; 99284

== ENCOUNTER → 2022-06-17 07:53 | Outpatient (CLI) | payer OTHER, SELFPAY ==
--- NOTE | 2022-06-17 07:55 | DI.RAD.S_ITS ---
PROCEDURE: XR CHEST 2V INDICATIONS: SOB and cough TECHNIQUE: 2 views of the chest were acquired. COMPARISON: [facility], CR, XR CHEST 1V, 12/18/2021, 11:31. FINDINGS: Surgical changes and devices: None. Lungs and pleura: There is mild pulmonary vascular congestion. No definite focal infiltrate. No pleural effusions or pneumothorax. Mediastinum: Tortuous thoracic aorta is seen. Heart size is enlarged. Bones and chest wall: No suspicious bony abnormalities. Soft tissues appear unremarkable. IMPRESSION: Cardiomegaly and mild congestion. No focal infiltrate, pleural effusion or pneumothorax. Dictated by: Carter Obando M.D. on 06/17/2022 at 10:17 Approved by: Carter Obando M.D. on 06/17/2022 at 10:18
== END ==
PROVIDERS: PCP Nurse Practitioner; Referring Provider Nurse Practitioner; Visit Provider Nurse Practitioner
DX: I51.7 Cardiomegaly; R09.89 Other specified symptoms and signs involving the circulatory and respiratory systems; R06.02 Shortness of breath; R05.9 Cough, unspecified
CPT/HCPCS: 71046

== ENCOUNTER → 2022-06-26 14:31 | Outpatient (CLI) | payer OTHER, SELFPAY ==
--- NOTE | 2022-06-26 | DI.ECHO.S_ITS ---
[facility] +---------+ : : [address] : [place] : : : : [id number] : : : : Phone: [phone]+ Echocardiogram Report + + :Name: NOE RODRIGUEZ Study Date: 06/26/2022 Height: 63 in : :[facility] ReadingLocation: Weight: 197 lb : : Gender: Female BSA: 1.9 m2 : :: 1945 Age: 77 yrs BP: 141/76 mmHg: :Reason For Study: Congestive Heart Failure : :Ordering Physician: URIEL, : :ANGELA Performed By: Ricardo Lucas : :Referring: ANGELA LEE : + + Interpretation Summary 1) Normal left ventricular size, wall motion, and systolic function (EF 55- 60%). 2) Normal right ventricular size and function. 3) No significant valvular abnormalities. 4) Compared to the Echo done 06/13/2021, diastolic dysfunction has improved from grade 2 to grade 1 on this study. Procedure: A two-dimensional transthoracic echocardiogram with color flow and Doppler was performed. The study quality was technically adequate. Comparison is made with the echocardiogram of 06/13/2021. The patient was in normal sinus rhythm during the exam. Left Ventricle: The left ventricle is normal in size. Left ventricular wall thickness is borderline increased. The ejection fraction is estimated to be 55-60%. Left ventricular systolic function appears normal without focal wall motion abnormalities. Diastolic parameters suggest a relaxation abnormality of the left ventricle, consistent with probable normal filling pressures. Right Ventricle: The right ventricle is normal in size and function. Atria: The left atrium is moderately dilated. Right atrial size is normal. The interatrial septum grossly appears intact with no obvious evidence for an atrial septal defect. The atrial septum is aneurysmal. Mitral Valve: There is mild mitral annular calcification. There is no mitral regurgitation noted. Aortic Valve: The aortic valve is normal in structure and function. There is no aortic valve stenosis. There is trace aortic regurgitation. Tricuspid Valve: The tricuspid valve is normal in structure and function. There is trace tricuspid regurgitation. Pulmonary artery pressures cannot be estimated because of the lack of a measurable TR jet velocity. Pulmonic Valve: The pulmonic valve is normal in structure and function. There is a trace or physiologic amount of pulmonic regurgitation. Great Vessels: The aortic root is normal size. The ascending aorta is at the upper limits of normal in size. The IVC is of normal diameter and collapses greater than 50% with a sniff. This suggests a low right atrial pressure of 3 mm Hg. Pericardium/ Pleura There is no pericardial effusion. There is no pleural effusion. MMode/2D Measurements & Calculations LVIDd: 5.2 cm LVOT diam: 2.2 cm LVIDs: 3.8 cm Ao root diam: 3.0 cm FS: 26.9 % asc Aorta Diam: 4.0 cm IVSd: 1.2 cm LVPWd: 1.1 cm LV moses. diameter/BSA (cm/m^2): 2.7 LV sys. diameter/BSA (cm/m^2): 2.0 LA dimension: 3.3 cm RA long axis: 6.4 cm LA A2 area: 24.2 cm2 LA A4 area: 25.8 cm2 LA length (vol): 7.1 cm LA vol: 74.4 ml LA vol index: 38.7 ml/m2 TAPSE_phl: 2.7 cm Doppler Measurements & Calculations Ao V2 max: 162.0 cm/sec LVOT Max Mike: 84.9 cm/sec Ao V2 mean: 117.0 cm/sec LV V1 max P.9 mmHg Ao max P.0 mmHg LV V1 VTI: 23.1 cm Ao mean P.0 mmHg CJ(I,D): 2.2 cm2 Ao V2 VTI: 39.8 cm CJ(V,D): 2.0 cm2 sev ratio: 0.58 CJ indexed to BSA (cm^2/m^2): 1.1 MV E max mike: 54.4 cm/sec SV(LVOT): 87.8 ml MV A max mike: 70.7 cm/sec MV E/A: 0.77 Med Peak E' Mike: 3.8 cm/sec E/E' med: 14.4 Lat Peak E' Mike: 6.2 cm/sec E/E' lat: 8.8 E/e' average: 11.6 MV dec time: 0.74 sec AV VR_phl: 0.52 MV P1/2t-pr_phl: 216.0 msec CJ(VTI)/BSA_phl: 1.1 Reading Physician:05:04 PM
== END ==
PROVIDERS: PCP Nurse Practitioner; Referring Provider Internal Medicine Cardiovascular Disease; Visit Provider Internal Medicine Cardiovascular Disease
DX: I50.32 Chronic diastolic (congestive) heart failure (principal)
CPT/HCPCS: 93306

== ENCOUNTER → 2022-07-22 09:13 | Outpatient (CLI) | payer OTHER, SELFPAY ==
[2022-07-22 10:57] LABS: BUN Creatinine Ratio 20.5 (6-22); Blood Urea Nitrogen 15 mg/dL (7-17); Calcium 9.4 mg/dL (8.4-10.2); Carbon Dioxide 29 mmol/L (22-32); Chloride 102 mmol/L (98-107); Estimated Glomerular Filt Rate > 60 mL/min (>60); Glucose 94 mg/dL (80-110); HEMOLYSIS < 15 (0-50); Potassium 4.5 mmol/L (3.4-5.1); Sodium 139 mmol/L (137-145)
== END ==
PROVIDERS: PCP Nurse Practitioner; Referring Provider Internal Medicine Cardiovascular Disease; Visit Provider Internal Medicine Cardiovascular Disease
DX: I50.32 Chronic diastolic (congestive) heart failure (principal)
CPT/HCPCS: 36415; 80048

== ENCOUNTER → 2022-08-19 07:56 | Outpatient (CLI) | payer OTHER, SELFPAY ==
[2022-08-19 11:07] LABS: Prothrombin Time 23.1 SECONDS (10.1-12.7)
== END ==
PROVIDERS: PCP Nurse Practitioner; Referring Provider Nurse Practitioner; Visit Provider Nurse Practitioner
DX: Z79.01 Long term (current) use of anticoagulants (principal); Z86.711 Personal history of pulmonary embolism
CPT/HCPCS: 36415; 85610

== ENCOUNTER → 2022-09-17 08:10 | Outpatient (CLI) | payer OTHER, SELFPAY ==
--- NOTE | 2022-09-17 | DI.NM.S_ITS ---
PROCEDURE: NM TOBY PERF SPECT R&S PHARM Rest and pharmacological stress myocardial perfusion SPECT with gated imaging and ejection fraction RADIOPHARMACEUTICAL: 12.4 mCi Tc-99m tetrafosmin IV at rest and 25.8 mCi Tc-99m tetrafosmin IV at peak effect of pharmacological stress. Oql-icr-tidtvcml was performed. INDICATIONS: Other forms of dyspnea TECHNIQUE: Radiopharmaceutical was injected at peak stress test, and also at rest. SPECT images were obtained. SPECT myocardial perfusion images were displayed in short axis, horizontal long axis, and vertical long axis views. Gated images were reviewed using TAPQUAD software. COMPARISON: None. CARDIAC STRESS: A pharmacologic stress test was performed under the supervision of an attending staff, using an infusion of lexiscan 0.4mg IV X1. Hemodynamic data: There is normal blood pressure and heart rate response to pharmacologic stress. Symptoms: The patient had chest pain at baseline that improved after lexiscan. Aminophylline: none EKG: No diagnostic changes of ischemia; rare PVCs. FINDINGS: Raw data: There is good myocardial uptake of radiotracer. No significant motion artifacts. Nuwk-bb-btjxw ratio is 0.29 (normal is less than 0.38 for tetrafosmin tracer). Left ventricle function: Gated images demonstrate normal left ventricular wall thickening. No segmental wall motion abnormalities. No transient ischemic dilation; TID is 1.02 (normal less than 1.3). Left ventricle resting end diastolic volume is 95 mL. Left ventricle stress ejection fraction is 74%; normal range is above 45%. Myocardial perfusion: There is moderate intense apical cap defect at rest that improves significantly with stress, suggesting artifact but prior non-transmural infarction can't be definitely excluded as the patient unable to prone due to limited mobility. No ischemia. SSS 5, SRS 12. IMPRESSION: Low risk, probably normal pharmaceutical nuclear stress test 1) There is moderate intense apical cap defect at rest that improves significantly with stress, suggesting artifact but prior non-transmural infarction can't be definitely excluded as the patient unable to prone due to limited mobility. No ischemia. SSS 5, SRS 12. 2) Normal left ventricular size, wall motion, and systolic function (EF post stress 74%). 3) No ST changes with lexiscan. 4) Non-diagnostic chest pain at baseline that improved after lexiscan. 5) Compared to the nuclear stress test done 08/13/2021, no significant change. Dictated by: Wilma Lee MD on 09/17/2022 at 16:45 Approved by: Wilma Lee MD on 09/17/2022 at 16:49
[2022-09-17 10:08] LABS: COVID19 -Nasal RAPID Negative (Negative)
[2022-09-17 14:01] LABS: COVID19 -Nasal RAPID POSITIVE (Negative)
[2022-09-17 15:15] LABS: COVID19 -Nasal RAPID Negative (Negative)
== END ==
PROVIDERS: PCP Nurse Practitioner; Referring Provider Internal Medicine Cardiovascular Disease; Visit Provider Internal Medicine Cardiovascular Disease
DX: R06.09 Other forms of dyspnea (principal); Z20.822 Contact with and (suspected) exposure to COVID-19
CPT/HCPCS: 78452; 87635; 93017; A9502; J2785

== ENCOUNTER → 2022-10-01 09:34 | Outpatient (CLI) | payer OTHER, SELFPAY ==
[2022-10-01 10:48] LABS: INR 2.5 (0.9-1.3); Prothrombin Time 29.3 SECONDS (10.1-12.7)
== END ==
PROVIDERS: PCP Nurse Practitioner; Referring Provider Nurse Practitioner; Visit Provider Nurse Practitioner
DX: Z79.01 Long term (current) use of anticoagulants (principal)
CPT/HCPCS: 36415; 85610

== ENCOUNTER → 2022-10-03 12:37 | Outpatient (CLI) | payer OTHER, SELFPAY ==
[2022-10-03 14:03] LABS: Influenza A - CEPHEID Flu A NEGATIVE (NEGATIVE); Influenza B - CEPHEID Flu B NEGATIVE (NEGATIVE); Respiratory Syncytial Virus Negative (Negative)
[2022-10-03 14:06] LABS: COVID-19 CEPHEID 4-PLEX PCR Negative (Negative)
== END ==
PROVIDERS: PCP Nurse Practitioner; Visit Provider Nurse Practitioner Family
DX: R05.9 Cough, unspecified (principal); R09.81 Nasal congestion; Z20.822 Contact with and (suspected) exposure to COVID-19
CPT/HCPCS: 0241U

== ENCOUNTER → 2022-10-26 10:45 | Outpatient (CLI) | payer OTHER, SELFPAY | PROVIDERS: PCP Nurse Practitioner; Visit Provider Student in an Organized Health Care Education/Training Program | DX: L98.9 Disorder of the skin and subcutaneous tissue, unspecified (principal) | CPT/HCPCS: 87070; 87077; 87147; 87186; 87205; 87252 ==

== ENCOUNTER → 2022-11-05 08:41 | Outpatient (CLI) | payer OTHER, SELFPAY ==
[2022-11-05 09:30] LABS: INR 3.4 (0.9-1.3); Prothrombin Time 39.4 SECONDS (10.1-12.7)
== END ==
PROVIDERS: PCP Nurse Practitioner; Referring Provider Nurse Practitioner; Visit Provider Nurse Practitioner
DX: Z79.01 Long term (current) use of anticoagulants (principal); Z86.711 Personal history of pulmonary embolism
CPT/HCPCS: 36415; 85610

== ENCOUNTER → 2022-11-12 08:15 | Outpatient (CLI) | payer OTHER, SELFPAY ==
[2022-11-12 09:03] LABS: INR 2.2 (0.9-1.3); Prothrombin Time 24.9 SECONDS (10.1-12.7)
== END ==
PROVIDERS: PCP Nurse Practitioner; Referring Provider Nurse Practitioner; Visit Provider Nurse Practitioner
DX: Z79.01 Long term (current) use of anticoagulants (principal)
CPT/HCPCS: 36415; 85610

== ENCOUNTER → 2022-11-26 08:10 | Outpatient (CLI) | payer OTHER, SELFPAY ==
[2022-11-26 08:46] LABS: INR 3.1 (0.9-1.3); Prothrombin Time 35.6 SECONDS (10.1-12.7)
== END ==
PROVIDERS: PCP Nurse Practitioner; Referring Provider Nurse Practitioner; Visit Provider Nurse Practitioner
DX: I26.99 Other pulmonary embolism without acute cor pulmonale (principal)
CPT/HCPCS: 36415; 85610

== ENCOUNTER → 2022-12-17 12:23 | Outpatient (CLI) | payer OTHER, SELFPAY | PROVIDERS: PCP Nurse Practitioner; Referring Provider Nurse Practitioner; Visit Provider Nurse Practitioner | DX: M85.851 Other specified disorders of bone density and structure, right thigh (principal); Z13.820 Encounter for screening for osteoporosis; Z78.0 Asymptomatic menopausal state | CPT/HCPCS: 77080 ==

== ENCOUNTER → 2022-12-25 08:17 | Outpatient (CLI) | payer OTHER, SELFPAY ==
[2022-12-25 10:08] LABS: INR 4.3 (0.9-1.3); Prothrombin Time 50.4 SECONDS (10.1-12.7)
[2022-12-25 18:01] LABS: Hep C Virus Ab w/Reflex Quant NEGATIVE s/c (NEGATIVE)
== END ==
PROVIDERS: PCP Nurse Practitioner; Referring Provider Nurse Practitioner; Visit Provider Nurse Practitioner
DX: Z11.59 Encounter for screening for other viral diseases (principal)
CPT/HCPCS: 36415; 85610; 86803

== ENCOUNTER → 2023-01-02 09:06 | Outpatient (CLI) | payer OTHER, SELFPAY ==
[2023-01-02 11:55] LABS: INR 3.1 (0.9-1.3); Prothrombin Time 36.3 SECONDS (10.1-12.7)
== END ==
PROVIDERS: PCP Nurse Practitioner; Referring Provider Nurse Practitioner; Visit Provider Nurse Practitioner
DX: Z79.01 Long term (current) use of anticoagulants (principal); Z86.711 Personal history of pulmonary embolism
CPT/HCPCS: 36415; 85610

== ENCOUNTER → 2023-02-11 09:46 | Outpatient (CLI) | payer OTHER, SELFPAY ==
--- NOTE | 2023-02-11 09:46 | DI.RAD.S_ITS ---
PROCEDURE: XR CHEST 2V INDICATIONS: cough, hx COPD, HFpEF, left rib pain TECHNIQUE: 2 views of the chest were acquired. COMPARISON: [facility], CR, XR CHEST 2V, 06/17/2022, 7:56. FINDINGS: Surgical changes and devices: None. Lungs and pleura: Prominent pulmonary markings. Possible Brittany B lines. No pleural effusions or pneumothorax. No consolidation. Mediastinum: Mediastinal contours are unchanged. Heart size is prominent. Bones and chest wall: No suspicious bony abnormalities. Soft tissues appear unremarkable. IMPRESSION: Pulmonary vasculature engorgement. Possible mild CHF. Dictated by: Oziel Hawthorne M.D. on 02/11/2023 at 10:34 Approved by: Oziel Hawthorne M.D. on 02/11/2023 at 10:35
== END ==
PROVIDERS: PCP Nurse Practitioner; Referring Provider Student in an Organized Health Care Education/Training Program; Visit Provider Student in an Organized Health Care Education/Training Program
DX: J81.1 Chronic pulmonary edema (principal); R05.8 Other specified cough
CPT/HCPCS: 71046

== ENCOUNTER → 2023-06-30 08:09 | Outpatient (CLI) | payer OTHER, SELFPAY ==
[2023-06-30 08:40] LABS: Add Manual Diff / Slide Review NO; Basophils Absolute Auto 100 /uL (0-100); Basophils Percent Auto 1.5 % (0-2); Eosinophils Absolute Auto 300 /uL (0-450); Eosinophils Percent Auto 6.1 % (2-4); Hematocrit 43.4 % (36-46); Lymphocytes Absolute Auto 1300 /uL (1100-4500); Mean Corpuscular HGB Conc 34.4 % (30-36); Mean Corpuscular Hemoglobin 38.1 PG (26-34); Mean Corpuscular Volume 110.8 fL (80-100); Monocytes Absolute Auto 500 /uL (0-900); Monocytes Percent Auto 9.1 % (3-14); Neutrophils Absolute Auto 3300 /uL (1500-7000); Neutrophils Percent Auto 59.3 % (50-75); Platelet Count 202 X10^3/uL (150-400); Red Blood Cell Count 3.92 X10^6/uL (4.0-5.2); Red Cell Distribution Width 13.8 % (11.6-14.8); White Blood Cell Count 5.5 X10^3/uL (4.5-11.0)
[2023-06-30 08:52] LABS: Macrocytosis 3+
[2023-06-30 09:03] LABS: Hemoglobin A1C% w Est Avg Glu 5.1 % (4.0-6.0)
[2023-06-30 09:11] LABS: Alanine Aminotransferase 20 IU/L (<35); Albumin 4.1 g/dL (3.5-5.0); Albumin Globulin Ratio 1.5 (1.0-2.8); Alkaline Phosphatase 72 U/L (38-126); Aspartate Aminotransferase 25 IU/L (14-36); BUN Creatinine Ratio 28.6 (6-22); Bilirubin Total 1.1 mg/dL (0.2-1.3); Blood Urea Nitrogen 20 mg/dL (7-17); Calcium 9.4 mg/dL (8.4-10.2); Carbon Dioxide 32 mmol/L (22-32); Chloride 103 mmol/L (98-107); Cholesterol 135 mg/dL (140-199); Estimated Glomerular Filt Rate > 60 mL/min (>60); Globulin 2.8 g/dL (1.7-4.1); Glucose 90 mg/dL (80-110); HDL Cholesterol 52 mg/dL (40-60); HEMOLYSIS < 15 (0-50); LDL Cholesterol Calculated 65 mg/dL (<100); Potassium 4.4 mmol/L (3.4-5.1); Sodium 139 mmol/L (137-145); Total Protein 6.9 g/dL (6.3-8.2); Triglycerides 90 mg/dL (35-150)
[2023-06-30 09:16] LABS: Free T3, Triiodothyronine Free 4.13 pg/mL (2.77-5.27); Free T4, Direct Thyroxine 0.98 ng/dL (0.78-2.19)
[2023-06-30 09:29] LABS: Thyroid Stimulating Hormone 3.94 uIU/mL (0.47-4.68)
[2023-06-30 09:41] LABS: Creatinine Urine Random 53.6 mg/dL
[2023-06-30 09:48] LABS: Microalbumin Urine Random 0.7 mg/dL (0-1.6)
== END ==
PROVIDERS: PCP Nurse Practitioner; Referring Provider Family Medicine; Visit Provider Family Medicine
DX: E78.5 Hyperlipidemia, unspecified (principal); R73.9 Hyperglycemia, unspecified; I10 Essential (primary) hypertension; I50.30 Unspecified diastolic (congestive) heart failure; Z79.01 Long term (current) use of anticoagulants
CPT/HCPCS: 36415; 80053; 80061; 82043; 82570; 83036; 84439; 84443; 84481; 85025

== ENCOUNTER → 2023-07-07 09:08 | Outpatient (CLI) | payer OTHER, SELFPAY | PROVIDERS: PCP Nurse Practitioner; Visit Provider Student in an Organized Health Care Education/Training Program | DX: R30.0 Dysuria (principal) | CPT/HCPCS: 87077; 87086; 87186 ==

== ENCOUNTER → 2024-02-15 07:14 | Outpatient (CLI) | payer OTHER, SELFPAY ==
[2024-02-15 09:03] LABS: Add Manual Diff / Slide Review NO; Basophils Absolute Auto 100 /uL (0-100); Basophils Percent Auto 1.3 % (0-2); Eosinophils Absolute Auto 400 /uL (0-450); Eosinophils Percent Auto 6.8 % (2-4); Hematocrit 43.6 % (36-46); Hemoglobin 14.7 g/dL (12.0-16.0); Lymphocytes Absolute Auto 1400 /uL (1100-4500); Lymphocytes Percent Auto 23.2 % (25-40); Mean Corpuscular HGB Conc 33.8 % (30-36); Mean Corpuscular Hemoglobin 37.9 PG (26-34); Mean Corpuscular Volume 112.3 fL (80-100); Monocytes Absolute Auto 600 /uL (0-900); Monocytes Percent Auto 9.3 % (3-14); Neutrophils Absolute Auto 3500 /uL (1500-7000); Neutrophils Percent Auto 59.4 % (50-75); Platelet Count 205 X10^3/uL (150-400); Red Blood Cell Count 3.88 X10^6/uL (4.0-5.2); Red Cell Distribution Width 14.2 % (11.6-14.8); White Blood Cell Count 5.9 X10^3/uL (4.5-11.0)
[2024-02-15 09:16] LABS: Macrocytosis 1+
[2024-02-15 09:30] LABS: BUN Creatinine Ratio 25.4 (6-22); Blood Urea Nitrogen 18 mg/dL (7-17); Calcium 9.5 mg/dL (8.4-10.2); Carbon Dioxide 35 mmol/L (22-32); Chloride 104 mmol/L (98-107); Estimated Glomerular Filt Rate > 60 mL/min (>60); Glucose 84 mg/dL (80-110); HEMOLYSIS < 15 (0-50); Potassium 4.9 mmol/L (3.4-5.1); Sodium 140 mmol/L (137-145)
== END ==
PROVIDERS: PCP Nurse Practitioner; Referring Provider Internal Medicine Cardiovascular Disease; Visit Provider Internal Medicine Cardiovascular Disease
DX: I50.32 Chronic diastolic (congestive) heart failure (principal)
CPT/HCPCS: 36415; 80048; 85025

== ENCOUNTER → 2024-05-24 07:51 | Outpatient (CLI) | payer OTHER, SELFPAY ==
--- NOTE | 2024-05-24 07:53 | DI.CT.S_ITS ---
PROCEDURE: CT ABDOMEN PELVIS W CON INDICATIONS: Ventral hernias x2 TECHNIQUE: After the administration of intravenous contrast, axial sections acquired from the lung bases to the pubic symphysis. Coronal and sagittal reformats were performed. For radiation dose reduction, the following was used: automated exposure control, adjustment of mA and/or kV according to patient size. COMPARISON: [facility], CT, CT ANGIO CHEST ABDOMEN PELVIS, 12/18/2021, 12:35. FINDINGS: Image quality: Diagnostic. Lower Chest: Mild dependent atelectasis. Subpleural nodule at the left base measuring 7 millimeters is stable. Cardiomegaly. ABDOMEN: Liver: No solid mass. Gallbladder: Multiple calcified gallstones. No gallbladder inflammation. Biliary ducts: No biliary dilation. Pancreas: No ductal dilation. Spleen: Size is within normal limits. Splenic calcifications. Adrenal Glands: Bilateral adrenal thickening. Kidneys and Ureters: No hydronephrosis. Punctate nonobstructing left renal stone measuring 3 millimeters. No solid mass. No complex renal cystic lesion which requires follow up. Bilateral simple appearing renal cysts. Stomach and Bowel: Normal colonic caliber, without significant wall thickening. Diverticulosis without evidence of acute diverticulitis. Normal appendix. Peritoneum: No abnormal intraperitoneal fluid. No free air. Ventral Wall: Fat containing containing left lower ventral abdominal wall hernia with defect measuring 1 centimeter. The hernia sac measures 4.3 x 3.7 centimeters. Abdominal Nodes: No retroperitoneal or mesenteric adenopathy by size criteria. Vessels: Aorta and inferior vena cava are normal in size. Atherosclerotic vascular calcifications. PELVIS: Pelvic Organs: Thickening of the endometrium measuring 2.7 centimeters. Bladder: No bladder wall thickening, accounting for underdistention. Pelvic Nodes: No enlarged lymph nodes. Miscellaneous: Left inguinal hernia containing a loop of small bowel. Bones: No aggressive osseous abnormality. Multilevel degenerative changes of the spine. Decreased osseous mineralization. Mild compression of L4. IMPRESSION: 1. Left lower ventral abdominal hernia containing fat. 2. Left inguinal hernia containing a loop of small bowel without obstruction. 3. Thickening of endometrium measuring 2.7 centimeters. Recommend pelvic ultrasound for further evaluation. 4. Diverticulosis without evidence of acute diverticulitis. 5. Punctate nonobstructing left renal stone measuring 3 millimeters. 6. Stable subpleural nodule at the left lung base measuring 7 millimeters. Dictated by: Raj Carr M.D. on 05/24/2024 at 16:50 Approved by: Raj Carr M.D. on 05/24/2024 at 16:56
[2024-05-24 08:17] LABS: Estimated Glomerular Filt Rate > 60 mL/min (>60)
== END ==
PROVIDERS: PCP Nurse Practitioner; Referring Provider Surgery; Visit Provider Surgery
DX: K40.90 Unilateral inguinal hernia, without obstruction or gangrene, not specified as recurrent (principal); K43.9 Ventral hernia without obstruction or gangrene; K57.90 Diverticulosis of intestine, part unspecified, without perforation or abscess without bleeding; K80.20 Calculus of gallbladder without cholecystitis without obstruction; N20.0 Calculus of kidney; N28.1 Cyst of kidney, acquired; R93.89 Abnormal findings on diagnostic imaging of other specified body structures; I51.7 Cardiomegaly; R91.1 Solitary pulmonary nodule
CPT/HCPCS: 36415; 74177; 82565; Q9967

== ENCOUNTER 2024-06-28 11:26 | Day surgery (SDC) | payer OTHER, SELFPAY ==
[2024-06-24 12:07] VITALS: BMI 29.5
[2024-06-28] VITALS (7 sets, daily range): BP systolic 101–139; BP diastolic 54–77; PULSE 51–67; RESP 15–21; TEMP 36.2–36.4; O2SAT 93–100; BMI 25.9
--- NOTE | 2024-06-28 | PATH_ITS ---
[facility] Accession Number: [id number] No. of containers..01 Tissue . 01 Material submitted: . gallbladder - GALLBLADDER . 01 Diagnosis: GALLBLADDER, CHOLECYSTECTOMY: Mild chronic calculous cholecystitis. Benign lymph node of cystic duct with reactive changes. Negative for dysplasia and malignancy. MRV 07/01/2024 1436 Local . 01 Electronically signed: . Fortino Redmond MD, Pathologist NPI- [id number] . 01 Gross description: . Received in formalin with two patient identifiers and gallbladder, is an intact gallbladder (11.7 x 4.5 x 3.8 cm) with an unremarkable external surface. The cystic duct margin is inked blue, and a mantilla lymph node candidate is 0.9 cm in greatest dimension. The lumen contains dark green viscous bile and multiple black faceted calculi measuring up to 1.0 cm in greatest dimension, not grossly obstructing the cystic duct. The mucosa is green and velvety with no yellow areas of discoloration, polyps, or lesions identified. The priest average 0.1 cm thick. Distillery Miller sections to include the cystic duct margin, full thickness sections, and intact lymph node candidate are submitted in A1. ([id number]) /MRV 06/29/2024 1512 Local . 01 Pathologist provided ICD-10: K43.9, K80.20 . 01 CPT . 368114 Specimen Comment: A courtesy copy of this report has been sent to [phone] Performed at: [address] [address], [place], [place] [id number] MD Dean Mello MD Phone: [phone]
[2024-06-28] MEDS: LACTATED RINGERS 1,000 ML 42 ML IV (11:50)
[2024-06-28] MEDS: ACETAMINOPHEN 325 MG TABLET 975 MG PO (12:07)
[2024-06-28] MEDS: FAMOTIDINE 20 MG/2 ML VIAL IV (12:08)
[2024-06-28] MEDS: ALBUTEROL/IPRATROPIUM 3 ML AMPUL INH (12:30)
--- NOTE | 2024-06-28 12:43 | PM.PREOP ---
Pre-operative Note COVID-19 COVID-19 status: Not tested Interval Note History & Physical reviewed/Exam performed by Physician: Yes Changes to H&P: No ASA Class (for procedural sedation): III
[2024-06-28] MEDS: CEFAZOLIN 2 GM/100 ML PREMIX 100 ML IV (13:15)
[2024-06-28] MEDS: BUPIVACAINE 0.5% W/ EPI (PF) 10 ML VIAL 30 ML INJ (13:31)
--- NOTE | 2024-06-28 13:37 | SUR.OPER ---
Supine on padded OR bed, head on pillow, arms secured on padded arm boards at <90 degrees abduction, legs uncrossed, safety belt at thigh, tape over blanket over lower legs, padded footboard.
--- NOTE | 2024-06-28 15:34 | PM.OP.1 ---
Operative Date/Time/Diagnoses Date of procedure: 06/28/24 Time of procedure: 15:34 Pre-op diagnosis: Symptomatic cholelithiasis Post-op diagnosis: same Procedure & Clinicians Procedure: Laparoscopic cholecystectomy Lysis of adhesions Same procedure as scheduled: Yes Surgeon: Carlyle [employer] Superintendent: Bernardino Wick Anesthesia Type: General Operative Notes Procedure in detail: The patient was given preoperative antibiotics. The patient was brought to the operating room and placed on the table in the supine position. General endotracheal anesthesia was induced. The abdomen was prepped and draped. A time-out was performed. We made a 1 cm infraumbilical incision inferior to the old surgical scar and palpable mesh. We dissected down to the fascia and scored the fascia vertically with cautery. We carefully divided posterior sheath under direct vision. We pierced the peritoneum with a Peon clamp. The Catherine port was placed and the abdomen was insufflated to 15 mmHg. A 5 mm 30 degree laparoscopic was inserted. There was no evidence of any injury from the entry. We could see loops of bowel adhered to the anterior abdominal wall. First we placed 5 mm ports in the right upper quadrant under direct vision. We then replaced the camera to look back at the umbilical port. We could see that there were loops of bowel adherent just to the right of the Hensley port. There was no evidence of an injury to any of these loops of bowel. We added an additional 5 mm port in the right lower quadrant. We carefully took down some adhesions of bowel to the anterior abdominal wall using cold scissors. There was also a loop of transverse colon adherent to the upper midline which was taken down in a similar fashion. We then placed the final laparoscopic 5 mm port in the subxiphoid position. The patient was then positioned in reverse Trendelenburg and the table was tilted to the left. The gallbladder was grasped at the dome and retracted cephalad. There were some adhesions of visceral fat to the gallbladder which were divided under direct vision. We then dissected the cystic structures with a combination of hook cautery and blunt dissection. We obtained a critical view. We placed clips on the cystic duct and artery and divided the cystic duct and artery sharply between the clips. The gallbladder was then dissected off the liver and placed in a specimen retrieval bag. We irrigated the right upper quadrant and all the aspirate returned clear. We then removed the 5 mm ports under direct vision we removed the Catherine port. We then injected some local into the fascia and closed the fascia with 2 interrupted 0 Vicryl sutures. The skin incisions were closed with 4-0 Monocryl and Steri-Strips were applied. Band-Aids were applied over the Steri-Strips. EBL: 20 mL Specimen: Gallbladder and contents Post-operative Condition: stable Disposition: PACU
== END 2024-06-28 16:25 | disposition home or self-care (01) ==
PROVIDERS: PCP Nurse Practitioner; Referring Provider Surgery; Visit Provider Surgery
PROC: 0FT44ZZ Resection of Gallbladder, Percutaneous Endoscopic Approach (ICD-10-PCS; CPT 47562; principal; 2024-06-28 13:45)
DX: K80.10 Calculus of gallbladder with chronic cholecystitis without obstruction (principal); N73.6 Female pelvic peritoneal adhesions (postinfective)
CPT/HCPCS: 47562; J0690; J1100; J1170; J2405; J2704; J3010; J3490

== ENCOUNTER 2024-06-29 11:53 | Emergency (ER) | payer OTHER, SELFPAY ==
[2024-06-29] VITALS (8 sets, daily range): BP systolic 109–128; BP diastolic 57–60; PULSE 50–61; RESP 16–22; TEMP 36.8–36.9; O2SAT 94–96; BMI 26.5
--- NOTE | 2024-06-29 12:21 | DI.RAD.S_ITS ---
PROCEDURE: XR CHEST 2V INDICATIONS: lab esequiel t-1, chest pain/sob TECHNIQUE: 2 views of the chest were acquired. COMPARISON: [facility], CR, XR CHEST 2V, 02/11/2023, 9:42. Prior report is not available. FINDINGS / IMPRESSION: Mildly enlarged cardiomediastinal silhouette unchanged. Moderately prominent efren, pulmonary vascular congestion and/or hilar lymph nodes mildly increased. New mild bibasilar subsegmental atelectasis, peribronchial thickening and patchy opacities right greater than left some of which commonly related expiratory result however bronchitis, bronchopneumonia, viral infection or other process should be considered. No pneumothorax, no pleural effusion. Follow-up suggested. If symptoms persist or worsen, CT chest could be performed. Dictated by: Darin Herrera M.D. on 06/29/2024 at 13:21 Approved by: Darin Herrera M.D. on 06/29/2024 at 13:28
--- NOTE | 2024-06-29 13:24 | DI.CT.S_ITS ---
PROCEDURE: CT ABDOMEN PELVIS W CON INDICATIONS: lap esequiel yesterday, off coumadin, + sob, abd distention TECHNIQUE: After the administration of intravenous contrast, axial sections acquired from the lung bases to the pubic symphysis. Coronal and sagittal reformats were performed. For radiation dose reduction, the following was used: automated exposure control, adjustment of mA and/or kV according to patient size. COMPARISON: [facility], CT, CT ABDOMEN PELVIS W CON, 05/24/2024, 12:13. FINDINGS: Image quality: Diagnostic. Lower Chest: No significant findings. ABDOMEN: Liver: No solid mass. Gallbladder: Absent. No fluid collection within the gallbladder fossa. Biliary ducts: No biliary dilation. Pancreas: No ductal dilation. Spleen: Size is within normal limits. Calcified granuloma. Adrenal Glands: No adrenal nodules. Kidneys and Ureters: No hydronephrosis. No solid mass. No complex renal cystic lesion which requires follow up. Left-sided renal sinus cysts. Small burden of punctate, nonobstructing bilateral nephrolithiasis. Stomach and Bowel: Normal colonic caliber, without significant wall thickening. Normal appendix. Colonic diverticulosis without evidence of diverticulitis. Peritoneum: No abnormal intraperitoneal fluid. Small volume pneumoperitoneum, within normal limits given recent surgery. Ventral Wall: No significant ventral hernia. Abdominal Nodes: No retroperitoneal or mesenteric adenopathy by size criteria. Vessels: Aorta and inferior vena cava are normal in size. PELVIS: Pelvic Organs: Unremarkable. Bladder: No bladder wall thickening, accounting for underdistention. Pelvic Nodes: No enlarged lymph nodes. Miscellaneous: No inguinal hernias are seen. Bones: No aggressive osseous abnormality. Degenerative disc disease of the lumbar spine. Grade 1 anterolisthesis of L4 on L5 due to facet arthrosis. Moderate to severe spinal canal narrowing at L3-4 due to degenerative change. IMPRESSION: No acute abnormality to explain the patient's abdominal distension. No evidence of obstruction. Recent cholecystectomy. No fluid collection in the surgical bed to suggest biloma. Pneumobilia, within normal limits. Moderate to severe spinal canal narrowing at L3-4 due to degenerative change. Dictated by: Samuel Lopez M.D. on 06/29/2024 at 15:08 Approved by: Samuel Lopez M.D. on 06/29/2024 at 15:10
--- NOTE | 2024-06-29 13:24 | DI.CT.S_ITS ---
PROCEDURE: CT ANGIO CHEST PE PROTOCOL INDICATIONS: lap esequile yesterday, off coumadin, + sob, abd distention TECHNIQUE: After the administration of intravenous contrast, 2 mm thick sections acquired from the pulmonary apices to the posterior costophrenic angles. 3-dimensional maximum intensity projection (MIP) coronal and sagittal reformats were then acquired through the thorax. For radiation dose reduction, the following was used: automated exposure control, adjustment of mA and/or kV according to patient size. COMPARISON: [facility], CT, CT ANGIO CHEST PE PROTOCOL, 07/17/2021, 12:23. FINDINGS: Image quality: Diagnostic. Pulmonary arteries: Pulmonary arteries are dilated, and demonstrate no intraluminal filling defects to suggest central pulmonary embolism. Lower Neck: No enlarged lymph nodes. Thyroid: No thyroid nodules which require sonographic follow up, per consensus guidelines. Axillae: No enlarged lymph nodes. Chest Wall: Unremarkable. Bones: Unremarkable. Lungs and Pleura: No pneumothorax or pleural effusions. No consolidation or suspicious nodules. Peribronchial thickening. Calcified granuloma. Heart: Heart size is enlarged. No pericardial effusion. Thoracic Vessels: No aortic aneurysm. Mediastinum and Maty: No enlarged lymph nodes. Esophagus: No wall thickening. No hiatal hernia. Upper Abdomen: Please see same day abdominal CT for further discussion. IMPRESSION: No pulmonary embolus. Dilated pulmonary arteries, suggestive of pulmonary hypertension. Peribronchial thickening, typically indicating infectious or inflammatory bronchitis. Dictated by: Samuel Lopez M.D. on 06/29/2024 at 15:05 Approved by: Samuel Lopez M.D. on 06/29/2024 at 15:07
--- NOTE | 2024-06-29 13:37 | ED_ITS ---
HPI - SOB/Dyspnea General Chief Complaint: Shortness of Breath/Dyspnea Stated Complaint: had sx 06/28, SOB Time Seen by Provider: 06/29/24 13:26 Source: patient Mode of arrival: Ambulatory History of Present Illness HPI Narrative: Patient here with daughter. Patient is postop day 1 status post laparoscopic cholecystectomy and lysis of adhesions yesterday with Dr. Qureshi general surgery. Went home doing well but felt short of breath today. Feels like pressure coming from abdomen. Patient has been off warfarin and is supposed to start tomorrow. History of blood clots in the lungs. Patient denies any chest pain. Has not had any flatus. No nausea or vomiting. She has been walking at home to try to stimulate the bowels. Related Data Home Medications Medication Instructions Recorded Confirmed fexofenadine 180 mg tablet 180 mg PO QDAY ##0 11/26/17 07/13/24 Calcium/Vitamin D3 See Rx Instructions .Route .COMPLEX 08/09/18 07/13/24 losartan 25 mg tablet 25 mg PO DAILY 07/23/21 07/13/24 Previous Rx's Medication Instructions Recorded ipratropium 0.5 mg-albuterol 3 mg 3 ml inhalation Q6HP PRN shortness 03/29/21 (2.5 mg base)/3 mL nebulization of breath #90 ea soln valacyclovir 1 gram tablet 1,000 mg PO 3XD #90 tabs 04/11/24 albuterol sulfate 90 mcg/actuation 2 puff inhalation Q4HP PRN 05/10/24 aerosol inhaler (Ventolin HFA) shortness of breath or wheezing #6.7 grams fluticasone 55 mcg-salmeterol 14 1 inh inhalation BID #3 ea 05/10/24 mcg/actuation breath activated powder furosemide 20 mg tablet 20 mg PO DAILY #90 tabs 05/10/24 montelukast 10 mg tablet 10 mg PO QPM #90 tabs 05/10/24 rosuvastatin 10 mg tablet 10 mg PO DAILY #90 tabs 05/10/24 spironolactone 25 mg tablet 25 mg PO DAILY #90 tabs 05/10/24 vit C 250 mg-E 90 mg-zinc 40 1 tab PO QAM AND QPM #1 tab 05/10/24 mg-copper 1 [id number] chew tablet (PreserVision AREDS-2) warfarin 5 mg tablet See Rx Instructions .Route 07/08/24 .COMPLEX #145 tabs Allergies Allergy/AdvReac Type Severity Reaction Status Date / Time No Known Drug Allergies Allergy Verified 07/13/24 10:08 Review of Systems Review of Systems Narrative: GENERAL: negative chills, fatigue, malaise, fever, sweats. HEENT: negative sinus pain, ear pain, sore throat RESPIRATORY: Positive dyspnea, negative cough CARDIOVASCULAR: negative chest pain, palpitations GASTROINTESTINAL: negative nausea, vomiting, abdominal pain : negative dysuria, frequency, hematuria MUSCULOSKELETAL: negative muscle or bony pain SKIN: negative rash, skin lesions NEUROLOGIC: negative weakness, numbness Patient History Medical History Declined smoking cessation Tobacco use disorder, continuous Tricompartment degenerative joint disease of knee Herpes zoster Shortness of Breath Shortness of breath after vaccination Toenail fungus Biliary colic History of pulmonary embolism (06/2021) Incidental lung nodule, greater than or equal to 8mm (07/2021) Warfarin anticoagulation (HFpEF) heart failure with preserved ejection fraction (~06/2021) Diastolic dysfunction (05/2021) Abnormal echocardiogram (05/2021) Hematuria Sensation of pressure in bladder area Allergies Osteoporosis Chicken pox Osteoarthritis Acute exacerbation of chronic obstructive pulmonary disease (COPD) Asthma Osteopenia after menopause Chronic obstructive pulmonary disease (12/23/12) Psoriasis Smoker unmotivated to quit Hyperlipidemia Polyp of colon (04/02/11) Surgical History History of colonoscopy with polypectomy (05/04/09) History of ventral hernia repair (08/10/07) Family History Father Diabetes mellitus History of heart disease Hypertension Stroke Mother History of heart disease Hypertension Grandfather History of heart disease Grandmother History of heart disease Social History household members: none and other Smoking Status: Current every day smoker Tobacco: How many years used: 58 quit status: considering quitting second hand exposure: No alcohol intake: never substance use type: does not use Smoking Status: Current every day smoker tobacco type: cigarettes alcohol intake frequency: holidays/special occasions only Substance Use Type: does not use Exam Narrative Exam Narrative: GENERAL: in no distress, not toxic not dyspneic HEAD: Normocephalic. EYES: Pupils equal round ENT: Mucous membranes moist. NECK: Trachea midline. CARDIOVASCULAR: Regular rate and rhythm RESPIRATORY: Clear to auscultation. Breath sounds equal bilaterally. No wheezes, rales, or rhonchi. Speaking full sentences GASTROINTESTINAL: Abdomen soft, non-tender no peritoneal signs surgical sites clean and dry. No guarding no rebound EXTREMITIES: No gross deformities. BACK: No flank tenderness. NEURO: AOx4. Clear speech SKIN: Warm and dry PSYCH: Not anxious, is cooperative Initial Vital Signs Initial Vital Signs: Vital Signs Temperature 98.2 F 06/29/24 12:05 Pulse Rate 61 06/29/24 12:05 Respiratory Rate 20 06/29/24 12:05 Blood Pressure 109/57 L 06/29/24 12:05 Pulse Oximetry 96 06/29/24 12:05 Oxygen Delivery Method Room Air 06/29/24 12:05 Course Orders Ordered: Discontinued Medications Sodium Chloride (Normal Saline 0.9%) 500 mls @ 1,000 mls/hr IV BOLUS ONE Stop: 06/29/24 17:21 Last Infusion: 06/29/24 17:26 Dose: Infused Documented By: Admin: 06/29/24 17:08 Dose: 1,000 mls/hr Documented By: GERARDO Vital Signs Vital signs: Vital Signs - 8 hr 06/29/24 12:05 06/29/24 12:26 06/29/24 12:27 Temperature 98.2 F Pulse Rate 61 52 L 53 L Respiratory Rate 20 18 Blood Pressure 109/57 L Pulse Oximetry 96 96 95 Oxygen Delivery Method Room Air Room Air 06/29/24 12:27 06/29/24 12:30 06/29/24 12:30 Temperature Pulse Rate 50 L Respiratory Rate 22 Blood Pressure 119/59 L 120/60 Pulse Oximetry 96 Oxygen Delivery Method 06/29/24 13:00 06/29/24 13:40 06/29/24 15:30 Temperature 98.5 F Pulse Rate 54 L 58 L Respiratory Rate 20 16 Blood Pressure 119/57 L Pulse Oximetry 95 94 Oxygen Delivery Method Room Air MDM - SOB/Dyspnea Lab Data 06/29/24 13:30 06/29/24 13:30 Labs: Lab Results 06/29/24 Range/Units 13:30 WBC 13.0 H (4.5-11.0) X10^3/uL RBC 3.52 L (4.0-5.2) X10^6/uL Hgb 13.3 (12.0-16.0) g/dL Hct 39.2 (36-46) % MCV 111.1 H (80-100) fL MCH 37.7 H (26-34) PG MCHC 33.9 (30-36) % RDW 14.1 (11.6-14.8) % Plt Count 184 (150-400) X10^3/uL Neut % (Auto) 84.2 H (50-75) % Lymph % (Auto) 7.8 L (25-40) % [place] % (Auto) 7.8 (3-14) % Eos % (Auto) 0.0 L (2-4) % Baso % (Auto) 0.2 (0-2) % Neut # (Auto) 04359 H (3264-1093) /uL Lymph # (Auto) 1000 L (4264-9722) /uL [place] # (Auto) 1000 H (0-900) /uL Eos # (Auto) 0 (0-450) /uL Baso # (Auto) 0 (0-100) /uL RBC Morphology See below Macrocytosis 2+ H PT 11.2 (9.4-12.5) SECONDS INR 1.0 (0.9-1.3) APTT 31 (25.1-36.5) SECONDS Sodium 137 (137-145) mmol/L Potassium 4.0 (3.4-5.1) mmol/L Chloride 105 (98-107) mmol/L Carbon Dioxide 29 (22-32) mmol/L BUN 20 H (7-17) mg/dL Creatinine 0.85 (0.52-1.04) mg/dL Estimated GFR > 60 (>60) mL/min BUN/Creatinine Ratio 23.5 H (6-22) Glucose 101 (80-110) mg/dL Calcium 9.7 (8.4-10.2) mg/dL Magnesium 2.2 (1.6-2.3) mg/dL Total Bilirubin 1.0 (0.2-1.3) mg/dL AST 53 H (14-36) IU/L ALT 41 H (<35) IU/L Alkaline Phosphatase 77 (38-126) U/L Total Creatine Kinase 127 (30-135) U/L Troponin I < 0.012 (0.01-0.034) ng/mL NT-Pro-B Natriuret Pep 529 H (<450) pg/mL Total Protein 6.4 (6.3-8.2) g/dL Albumin 3.7 (3.5-5.0) g/dL Globulin 2.7 (1.7-4.1) g/dL Albumin/Globulin Ratio 1.4 (1.0-2.8) Lipase 34 (23-300) U/L Imaging Data CT scan - chest: Radiologist's Impression: [address] [address] [address] Scan Report Signed Patient: Mei Singh MR#: [id number] : 1945 Acct:[id number] Age/Sex: 79 / F Date of Service: 06/29/24 Loc: ED Accession Number: [id number] Procedure: CT angio chest PE protocol Ordering Provider: Vinicius Gong MD PROCEDURE: CT ANGIO CHEST PE PROTOCOL INDICATIONS: lap esequiel yesterday, off coumadin, + sob, abd distention TECHNIQUE: After the administration of intravenous contrast, 2 mm thick sections acquired from the pulmonary apices to the posterior costophrenic angles. 3-dimensional maximum intensity projection (MIP) coronal and sagittal reformats were then acquired through the thorax. For radiation dose reduction, the following was used: automated exposure control, adjustment of mA and/or kV according to patient size. COMPARISON: [facility], CT, CT ANGIO CHEST PE PROTOCOL, 07/17/2021, 12:23. FINDINGS: Image quality: Diagnostic. Pulmonary arteries: Pulmonary arteries are dilated, and demonstrate no intraluminal filling defects to suggest central pulmonary embolism. Lower Neck: No enlarged lymph nodes. Thyroid: No thyroid nodules which require sonographic follow up, per consensus guidelines. Axillae: No enlarged lymph nodes. Chest Wall: Unremarkable. Bones: Unremarkable. Lungs and Pleura: No pneumothorax or pleural effusions. No consolidation or suspicious nodules. Peribronchial thickening. Calcified granuloma. Heart: Heart size is enlarged. No pericardial effusion. Thoracic Vessels: No aortic aneurysm. Mediastinum and Maty: No enlarged lymph nodes. Esophagus: No wall thickening. No hiatal hernia. Upper Abdomen: Please see same day abdominal CT for further discussion. IMPRESSION: No pulmonary embolus. Dilated pulmonary arteries, suggestive of pulmonary hypertension. Peribronchial thickening, typically indicating infectious or inflammatory bronchitis. Dictated by: Samuel Lopez M.D. on 06/29/2024 at 15:05 Approved by: Samuel Lopez M.D. on 06/29/2024 at 15:07 CT scan - abdomen/pelvis: Radiologist's Impression: [place] [address] CT Scan Report Signed Patient: Mei Singh MR#: [id number] : 1945 Acct:[id number] Age/Sex: 79 / F Date of Service: 06/29/24 Loc: ED Accession Number: [id number] Procedure: CT abdomen pelvis w con Ordering Provider: Vinicius Gong MD PROCEDURE: CT ABDOMEN PELVIS W CON INDICATIONS: lap esequiel yesterday, off coumadin, + sob, abd distention TECHNIQUE: After the administration of intravenous contrast, axial sections acquired from the lung bases to the pubic symphysis. Coronal and sagittal reformats were performed. For radiation dose reduction, the following was used: automated exposure control, adjustment of mA and/or kV according to patient size. COMPARISON: [facility], CT, CT ABDOMEN PELVIS W CON, 05/24/2024, 12:13. FINDINGS: Image quality: Diagnostic. Lower Chest: No significant findings. ABDOMEN: Liver: No solid mass. Gallbladder: Absent. No fluid collection within the gallbladder fossa. Biliary ducts: No biliary dilation. Pancreas: No ductal dilation. Spleen: Size is within normal limits. Calcified granuloma. Adrenal Glands: No adrenal nodules. Kidneys and Ureters: No hydronephrosis. No solid mass. No complex renal cystic lesion which requires follow up. Left-sided renal sinus cysts. Small burden of punctate, nonobstructing bilateral nephrolithiasis. Stomach and Bowel: Normal colonic caliber, without significant wall thickening. Normal appendix. Colonic diverticulosis without evidence of diverticulitis. Peritoneum: No abnormal intraperitoneal fluid. Small volume pneumoperitoneum, within normal limits given recent surgery. Ventral Wall: No significant ventral hernia. Abdominal Nodes: No retroperitoneal or mesenteric adenopathy by size criteria. Vessels: Aorta and inferior vena cava are normal in size. PELVIS: Pelvic Organs: Unremarkable. Bladder: No bladder wall thickening, accounting for underdistention. Pelvic Nodes: No enlarged lymph nodes. Miscellaneous: No inguinal hernias are seen. Bones: No aggressive osseous abnormality. Degenerative disc disease of the lumbar spine. Grade 1 anterolisthesis of L4 on L5 due to facet arthrosis. Moderate to severe spinal canal narrowing at L3-4 due to degenerative change. IMPRESSION: No acute abnormality to explain the patient's abdominal distension. No evidence of obstruction. Recent cholecystectomy. No fluid collection in the surgical bed to suggest biloma. Pneumobilia, within normal limits. Moderate to severe spinal canal narrowing at L3-4 due to degenerative change. Dictated by: Samuel Lopez M.D. on 06/29/2024 at 15:08 Approved by: Samuel Lopez M.D. on 06/29/2024 at 15:10 Chest x-ray: Radiologist's Impression: [place] [address] XRay Report Signed Patient: Mei Singh MR#: [id number] : 1945 Acct:[id number] Age/Sex: 79 / F Date of Service: 06/29/24 Loc: ED Accession Number: [id number] Procedure: XR chest 2V Ordering Provider: Vinicius Gong MD PROCEDURE: XR CHEST 2V INDICATIONS: lab esequiel t-1, chest pain/sob TECHNIQUE: 2 views of the chest were acquired. COMPARISON: [facility], , XR CHEST 2V, 02/11/2023, 9:42. Prior report is not available. FINDINGS / IMPRESSION: Mildly enlarged cardiomediastinal silhouette unchanged. Moderately prominent maty, pulmonary vascular congestion and/or hilar lymph nodes mildly increased. New mild bibasilar subsegmental atelectasis, peribronchial thickening and patchy opacities right greater than left some of which commonly related expiratory result however bronchitis, bronchopneumonia, viral infection or other process should be considered. No pneumothorax, no pleural effusion. Follow-up suggested. If symptoms persist or worsen, CT chest could be performed. Dictated by: Darin Herrera M.D. on 06/29/2024 at 13:21 Approved by: Darin Herrera M.D. on 06/29/2024 at 13:28 [facility] Narrative Medical decision making narrative: Patient here with daughter. Patient is postop day 1 status post laparoscopic cholecystectomy and lysis of adhesions yesterday with Dr. Qureshi general surgery. Went home doing well but felt short of breath today. Feels like pressure coming from abdomen. Patient has been off warfarin and is supposed to start tomorrow. History of blood clots in the lungs. Patient denies any chest pain. Has not had any flatus. No nausea or vomiting. She has been walking at home to try to stimulate the bowels. After history and exam EKG CBC CMP troponin CT chest CT abdomen pelvis normal saline urinalysis [facility] Medical records reviewed: Operative notes from yesterday Differential considered: Includes but not limited to bowel obstruction perforated viscus STEMI non-STEMI CHF Lab Test results independently reviewed as above. Pertinent findings: Independently reviewed EKG sinus bradycardia rate 45 Imaging studies independently reviewed: Chest x-ray no acute finding CT chest CT abdomen pelvis no acute finding Consultations: None indicated this time Treatments: None indicated at this time Re-evaluations: 4:50 p.m.. Patient feeling much better. Up and walking and now having flatus while walking and pacing the hallways. Reviewed with patient and daughter results. dyspnea could be related to the anesthetics and procedure from yesterday. She never had chest pain. Return precautions reviewed. She does not want to wait here any longer she desires to be discharged home now. Patient did not want to wait for IV fluids after CT angiogram. Informed her to drink plenty of fluids tonight. However she did agree for 250 mL IV fluid Discussion: Appropriate for discharge home. Exam is reassuring. Patient developed flatus while here while walking and starting to feel better. Never developed chest pain or dyspnea while walking in the hallway. Return precautions reviewed. They desire discharge home. WBC likely postoperative related. Diagnosis: Dyspnea Discharge Plan Departure Patient Disposition: Home Clinical Impression: Dyspnea Instructions: DI for Shortness of Breath Activity Restrictions/Additional Instructions: Your laboratory studies and CT scan imaging and EKG are reassuring at this time. Your shortness of breath is improving with walking and may be related to your surgery yesterday with the anesthetics. However return immediately if worse if any questions or concerns or if any chest pain. Continue home medications. Return if worse if any questions or concerns Prescriptions: No Action Calcium/Vitamin D3 See Rx Instructions .ROUTE .COMPLEX Patient Comments: 1 TAB PO QDAY Rx Instructions: 1 TAB PO QDAY fexofenadine 180 MG tablet 180 mg PO QDAY Qty: 0 ipratropium-albuterol 0.5 mg-3 mg(2.5 mg base)/3 mL solution for nebulization 3 ml INHALATION Q6HP PRN (Reason: shortness of breath) Qty: 90 0RF valacyclovir 1 gram tablet 1,000 mg PO 3XD Qty: 90 3RF warfarin 5 mg tablet See Rx Instructions .ROUTE .COMPLEX Qty: 145 3RF Rx Instructions: 5mg on Mondays and Fridays; 7.5mg all other days albuterol sulfate [Ventolin HFA] 90 mcg/actuation HFA aerosol inhaler 2 puff inhalation Q4HP PRN (Reason: shortness of breath or wheezing) Qty: 6.7 3RF fluticasone propion-salmeterol 55-14 mcg/actuation aerosol powdr breath activated 1 inh inhalation BID Qty: 3 3RF furosemide 20 mg tablet 20 mg PO DAILY Qty: 90 3RF montelukast 10 mg tablet 10 mg PO QPM Qty: 90 3RF rosuvastatin 10 mg tablet 10 mg PO DAILY Qty: 90 3RF spironolactone 25 mg tablet 25 mg PO DAILY Qty: 90 3RF PreserVision AREDS-2 250-90-40-1 mg tablet,chewable 1 tab PO QAM AND QPM Qty: 1 0RF losartan 25 mg tablet 25 mg PO DAILY Referrals: Payal Zapien MD [Primary Care Provider] - Stand Alone Forms: Patient Portal/API
--- NOTE | 2024-06-29 13:39 | EKG_ITS ---
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
[2024-06-29 13:43] LABS: Add Manual Diff / Slide Review NO; Basophils Absolute Auto 0 /uL (0-100); Basophils Percent Auto 0.2 % (0-2); Eosinophils Absolute Auto 0 /uL (0-450); Hematocrit 39.2 % (36-46); Hemoglobin 13.3 g/dL (12.0-16.0); Lymphocytes Absolute Auto 1000 /uL (1100-4500); Lymphocytes Percent Auto 7.8 % (25-40); Mean Corpuscular HGB Conc 33.9 % (30-36); Mean Corpuscular Hemoglobin 37.7 PG (26-34); Mean Corpuscular Volume 111.1 fL (80-100); Monocytes Absolute Auto 1000 /uL (0-900); Monocytes Percent Auto 7.8 % (3-14); Neutrophils Absolute Auto 10900 /uL (1500-7000); Neutrophils Percent Auto 84.2 % (50-75); Platelet Count 184 X10^3/uL (150-400); Red Blood Cell Count 3.52 X10^6/uL (4.0-5.2); Red Cell Distribution Width 14.1 % (11.6-14.8)
[2024-06-29 13:47] LABS: Prothrombin Time 11.2 SECONDS (9.4-12.5)
[2024-06-29 13:49] LABS: PTT Partial Thromboplastin Tim 31 SECONDS (25.1-36.5)
[2024-06-29 13:55] LABS: Alanine Aminotransferase 41 IU/L (<35); Albumin 3.7 g/dL (3.5-5.0); Albumin Globulin Ratio 1.4 (1.0-2.8); Alkaline Phosphatase 77 U/L (38-126); Aspartate Aminotransferase 53 IU/L (14-36); BUN Creatinine Ratio 23.5 (6-22); Blood Urea Nitrogen 20 mg/dL (7-17); Calcium 9.7 mg/dL (8.4-10.2); Carbon Dioxide 29 mmol/L (22-32); Chloride 105 mmol/L (98-107); Creatine Kinase 127 U/L (30-135); Estimated Glomerular Filt Rate > 60 mL/min (>60); Globulin 2.7 g/dL (1.7-4.1); Glucose 101 mg/dL (80-110); HEMOLYSIS < 15 (0-50); Lipase 34 U/L (23-300); Magnesium 2.2 mg/dL (1.6-2.3); Sodium 137 mmol/L (137-145); Total Protein 6.4 g/dL (6.3-8.2)
[2024-06-29 14:05] LABS: NT-proBNP (BNP-Adult 18+) 529 pg/mL (<450); Troponin I < 0.012 ng/mL (0.01-0.034)
[2024-06-29 14:09] LABS: Macrocytosis 2+
--- NOTE | 2024-06-29 16:44 | PC.NURSE ---
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 Informed patient that the doctor will be in as soon as possible to see her.
[2024-06-29] MEDS: SODIUM CHLORIDE 0.9% 500 ML 1000 ML IV (17:08)
== END 2024-06-29 17:30 | disposition home or self-care (01) ==
PROVIDERS: Emergency Provider Emergency Medicine; PCP Student in an Organized Health Care Education/Training Program
DX: R06.00 Dyspnea, unspecified (principal); R00.1 Bradycardia, unspecified; I44.0 Atrioventricular block, first degree; I45.10 Unspecified right bundle-branch block
CPT/HCPCS: 36415; 71046; 71275; 74177; 80053; 82550; 83690; 83735; 83880; 84484; 85025; 85610; 85730; 93005; 99284; Q9967

== ENCOUNTER → 2024-10-04 07:21 | Outpatient (CLI) | payer OTHER, SELFPAY ==
[2024-10-04 07:46] LABS: Add Manual Diff / Slide Review NO; Basophils Absolute Auto 100 /uL (0-100); Basophils Percent Auto 1.2 % (0-2); Eosinophils Absolute Auto 300 /uL (0-450); Hematocrit 43.8 % (36-46); Hemoglobin 14.4 g/dL (12.0-16.0); Lymphocytes Absolute Auto 1500 /uL (1100-4500); Lymphocytes Percent Auto 25.9 % (25-40); Mean Corpuscular HGB Conc 32.9 % (30-36); Mean Corpuscular Hemoglobin 34.7 PG (26-34); Mean Corpuscular Volume 105.6 fL (80-100); Monocytes Absolute Auto 500 /uL (0-900); Monocytes Percent Auto 9.3 % (3-14); Neutrophils Absolute Auto 3300 /uL (1500-7000); Neutrophils Percent Auto 57.6 % (50-75); Platelet Count 239 X10^3/uL (150-400); Red Blood Cell Count 4.15 X10^6/uL (4.0-5.2); Red Cell Distribution Width 13.6 % (11.6-14.8); White Blood Cell Count 5.7 X10^3/uL (4.5-11.0)
[2024-10-04 08:23] LABS: HEMOLYSIS < 15 (0-50); Iron 103 ug/dL (37-170)
[2024-10-04 08:29] LABS: Alanine Aminotransferase 23 IU/L (<35); Albumin 4.1 g/dL (3.5-5.0); Albumin Globulin Ratio 1.5 (1.0-2.8); Alkaline Phosphatase 88 U/L (38-126); Aspartate Aminotransferase 30 IU/L (14-36); BUN Creatinine Ratio 34.2 (6-22); Bilirubin Total 0.9 mg/dL (0.2-1.3); Blood Urea Nitrogen 26 mg/dL (7-17); Calcium 9.4 mg/dL (8.4-10.2); Carbon Dioxide 33 mmol/L (22-32); Chloride 105 mmol/L (98-107); Cholesterol 164 mg/dL (140-199); Estimated Glomerular Filt Rate > 60 mL/min (>60); Globulin 2.7 g/dL (1.7-4.1); Glucose 92 mg/dL (80-110); HDL Cholesterol 69 mg/dL (40-60); HEMOLYSIS < 15 (0-50); LDL Cholesterol Calculated 76 mg/dL (<100); Potassium 4.4 mmol/L (3.4-5.1); Sodium 139 mmol/L (137-145); Total Protein 6.8 g/dL (6.3-8.2); Triglycerides 96 mg/dL (35-150)
[2024-10-04 08:35] LABS: Percent Iron Saturation 33 % (15-50); Total Iron Binding Capacity 311 ug/dL (265-497); Transferrin 274 mg/dL (206-381)
[2024-10-04 08:47] LABS: Free T3, Triiodothyronine Free 3.64 pg/mL (2.77-5.27); Free T4, Direct Thyroxine 1.05 ng/dL (0.78-2.19)
[2024-10-04 08:51] LABS: Creatinine Urine Random 118.39 mg/dL
[2024-10-04 09:19] LABS: Vitamin B12 399 pg/mL (239-931)
== END ==
PROVIDERS: PCP Student in an Organized Health Care Education/Training Program; Referring Provider Nurse Practitioner; Visit Provider Nurse Practitioner
DX: E78.5 Hyperlipidemia, unspecified (principal); J44.9 Chronic obstructive pulmonary disease, unspecified; M81.0 Age-related osteoporosis without current pathological fracture; I11.0 Hypertensive heart disease with heart failure; I50.30 Unspecified diastolic (congestive) heart failure; Z79.01 Long term (current) use of anticoagulants; Z86.711 Personal history of pulmonary embolism; Z79.899 Other long term (current) drug therapy
CPT/HCPCS: 36415; 80053; 80061; 82043; 82570; 82607; 83540; 83550; 84439; 84443; 84481; 85025

== ENCOUNTER → 2025-05-17 07:04 | Outpatient (CLI) | payer OTHER, SELFPAY ==
[2025-05-17 07:28] LABS: Hematocrit 40.9 % (36-46); Hemoglobin 13.8 g/dL (12.0-16.0); Mean Corpuscular HGB Conc 33.8 % (30-36); Mean Corpuscular Hemoglobin 33.1 PG (26-34); Mean Corpuscular Volume 98.1 fL (80-100); Platelet Count 205 X10^3/uL (150-400)
[2025-05-17 07:58] LABS: Blood Urea Nitrogen 25 mg/dL (7-17); Calcium 9.2 mg/dL (8.4-10.2); Carbon Dioxide 29 mmol/L (22-32); Chloride 106 mmol/L (98-107); Cholesterol 127 mg/dL (140-199); Estimated Glomerular Filt Rate > 60 mL/min (>60); Glucose 85 mg/dL (70-99); HDL Cholesterol 53 mg/dL (40-60); HEMOLYSIS < 15 (0-50); Potassium 4.0 mmol/L (3.4-5.1); Sodium 140 mmol/L (137-145); Triglycerides 79 mg/dL (35-150)
== END ==
PROVIDERS: PCP Student in an Organized Health Care Education/Training Program; Referring Provider Internal Medicine Cardiovascular Disease; Visit Provider Internal Medicine Cardiovascular Disease
DX: I50.32 Chronic diastolic (congestive) heart failure (principal)
CPT/HCPCS: 36415; 80048; 80061; 85027

== ENCOUNTER → 2025-07-31 09:22 | Outpatient (CLI) | payer OTHER, SELFPAY ==
--- NOTE | 2025-07-31 09:22 | DI.RAD.S_ITS ---
PROCEDURE: XR CHEST 2V INDICATIONS: Cough TECHNIQUE: 2 views of the chest were acquired. COMPARISON: [facility], CR, XR CHEST 2V, 06/29/2024, 12:46. FINDINGS: Surgical changes and devices: None. Lungs and pleura: Mild pulmonary vascular congestion. No focal infiltrate. No pleural effusions or pneumothorax. Mediastinum: Mediastinal contours are normal. Heart size is arge. Bones and chest wall: No suspicious bony abnormalities. Soft tissues appear unremarkable. IMPRESSION: Cardiomegaly and mild congestion. No focal infiltrate, pleural effusion or pneumothorax. Dictated by: Carter Obando M.D. on 07/31/2025 at 12:14 Approved by: Carter Obando M.D. on 07/31/2025 at 12:14
== END ==
PROVIDERS: PCP Student in an Organized Health Care Education/Training Program; Referring Provider Nurse Practitioner Family; Visit Provider Nurse Practitioner Family
DX: J81.1 Chronic pulmonary edema (principal); I51.7 Cardiomegaly; R05.9 Cough, unspecified
CPT/HCPCS: 71046